=== PATIENT | female | born 1955 | race Caucasian/White ===

== ENCOUNTER 2022-03-09 09:42 | Emergency (ER) | payer OTHER ==
--- OUTSIDE RECORDS SUMMARY | 2022-03-09 09:49 | XMS REPORT | Continuity of Care Document ---
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 10:02:000.67[facility]annCHEM ALLEO3086-95-24 10:02:64076Yopiruys HermannCHEM AGLGT1901-80-02 10:02:004.1[facility]annCHEM TPADU3017-97-11 10:02:01484Lpcckmss HermannCHEM KKNQR1022-22-48 10:02:0024 [facility]annCHE[facility] MCSNH4838-20-80 10:02:0011.1[facility]annCHEM PANEL 2020-05-17 10:02:009.5[facility]annCHEM POPGZ7232-29-90 10:02:0093[facility] HqrixblXCUUCCHUTE6273-01-37 10:02:0082.9[facility] XvpaofqPDXUMWYODO0272-61-00 10:02:0011.6[facility] SpyrpjeRDZGUJJOKQ0518-41-77 10:02:005.3[facility] Ney JEONGWQOQJ1271-12-18 10:02:000.2[facility] IpglaaqVJUKXVWNKB9061-61-07 10:02:005.2 [facility] LobymajSLGZHXICOS3265-49-65 10:02:000.7[facility] HermannHEMATOLOGY 2020-05-17 10:02:000.3[facility] MkziajuXAMTZDOQCU1792-50-63 10:02:00 Test Item Value Reference Range Interpretation Comments PT (test code = PT) 14.7 s 12.0-14.7 [facility] VhrzaolKCLWCFTTIA0099-80-83 10:02:00 Test Item Value Reference Range Interpretation Comments INR (test code = INR) 1.14 1 0.85-1.17 [facility] ZoyiwtgXLQIMMZPJC6571-24-56 10:02:006.3[facility] HermannHEMATOLOGY 2020-05-17 10:02:003.95[facility] UsageopBOKQYKVOUR4419-97-30 10:02:0012.9[facility] QkokelaQPVAKTKLZN1932-72-45 10:02:0037.7[facility] HlgsfmbFEWMHYRDNG0508-68-51 10:02:0095.4[facility] TpwgdvbMHTZFOCGFD7034-13-82 10:02:00 Test Item Value Reference Range Interpretation Comments MCH (test code = MCH) 32.6 pg 27.0-31.0 [facility] KlknogsKCBHWPEBRG9709-56-05 10:02:0034.1[facility] HermannHEMATOLOGY 2020-05-17 10:02:0013.0[facility] BtwiskoZALMKWAWZH1215-83-23 10:02:72484Jszzpkww CnejxflHZNCXAESDB3276-01-14 10:02:007.8[facility] HermannSPECIAL CHEMISTRY 2020-05-17 10:02:005.6[facility] BhwctedKVWLYPNNKO9920-50-97 00:32:00Not Detected (05/16/20 7:32 PM)[facility] AND DQWRK1582-26-00 00:21:00Amber *ABN*(05/16/20 7:21 PM)[facility] IYVYT7439-10-66 00:21:00Clear (05/16/20 7:21 PM)[facility] IYMUF2332-06-07 00:21:00 Test Item Value Reference Range Interpretation Comments UA Spec Grav (test code = UA Spec 1.027 1 Grav) [facility] EXENJ4142-61-04 00:21:00 Test Item Value Reference Range Interpretation Comments UA pH (test code = UA pH) 5.0 1 5.0-8.0 [facility] TMHPT3533-87-32 00:21:00Negative *NA*(05/16/20 7:21 PM) [facility] XEHPR5574-63-62 00:21:00Negative (05/16/20 7:21 PM) [facility] MGIJM5175-65-09 00:21:00Negative (05/16/20 7:21 PM) [facility] BCGIZ8941-67-03 00:21:00Trace *ABN*(05/16/20 7:21 PM) [facility] KIPQE8677-38-81 00:21:0032[facility] TLHOS8096-14-93 00:21:004[facility] LECMB3558-75-40 00:21:003 [facility]annCHEM KKTAW9374-14-50 23:58:0043[facility] HermannBLOOD BANK UBMVCAZ3642-57-91 20:27:00Negative (05/16/20 3:27 PM)[facility]annCHEM PANEL 2020-05-16 20:27:37653Vkpumrmx HermannCHEM HDPYI8178-52-86 20:27:0013[facility]annCHEM JLIDF3723-90-44 20:27:000.90[facility]annCHEM KMNMD7342-16-24 20:27:77522Sdhbmhar HermannCHEM SUGOO2974-97-27 20:27:003.3[facility]annCHEM AWNJL9936-91-52 20:27:43595Jcuxcovl HermannCHEM XGTSE4407-61-84 20:27:0024 [facility]annCHE[facility] CKUPC4267-46-22 20:27:0012.3[facility] HermannCHEM PANEL 2020-05-16 20:27:009.7[facility]annCHEM CFWGQ8599-22-98 20:27:0068[facility] ZraplkhCSIUHGMTXHTX5666-05-22 20:27:0012.3[facility] ZdycuogLJEDWMYCSP4004-42-75 20:27:007.8[facility] BayamppHWZQGMKMFL8832-80-76 20:27:004.00[facility] GLCQHKNDDS2471-99-16 20:27:0013.1[facility] HrgqvvxGNQXJXNTTR0766-29-32 20:27:00 38.4[facility] YgriuulOVOXICPFYN4252-77-72 20:27:0096.0[facility] HermannHEMATOLOGY 2020-05-16 20:27:00 Test Item Value Reference Range Interpretation Comments MCH (test code = MCH) 32.7 pg 27.0-31.0 [facility] RhlfwtnVABJVRRWFL0775-96-88 20:27:0034.0[facility] HermannHEMATOLOGY 2020-05-16 20:27:0013.0[facility] CbruwyoOHNIFNGXRD8466-96-20 20:27:00422Eeaxrcpm OupusryNGNLRVLSWH0588-48-14 20:27:008.2[facility] YblilcoFGQWUFUGYS6163-16-03 20:27:0072.2[facility] LokprbwETZWIVNONI0145-57-22 20:27:0019.8[facility] Ney ZMUGRUYFYC1326-26-72 20:27:006.7[facility] InwcdhcTWTFNYYWSW4219-23-23 20:27:000.9 [facility] KakigtlKDCUCGDVJU3778-52-88 20:27:000.4[facility] HermannHEMATOLOGY 2020-05-16 20:27:005.6[facility] SoqzhqyKSQHKDLXNV7219-41-37 20:27:001.6[facility] JprcyzvCYWIMDDBZF6100-66-35 20:27:000.5[facility] AzbttdiKONRUNRVQT2573-98-93 20:27:000.1[facility] HermannCARDIAC PPMPQQB9326-42-00 05:41:0050[facility] CARDIAC TSWXUTD0415-73-98 05:41:65032Pkiegtyx HermannCARDIAC IUSKBGG8423-97-83 05:41:00<0.02[facility] HermannCHEM TMSHC0050-36-40 05:41:48888Vukrrxnw Valentine CHEM DJIWL8888-60-42 05:41:0012[facility]annCHEM CCNIL7433-48-61 05:41:000.88 [facility]annCHEM NRQOE3645-49-83 05:41:64459Tnjykexq HermannCHEM PANEL 2020-01-23 05:41:004.4[facility]annCHEM RALGX2015-26-19 05:41:67102Teqkzdta HermannCHEM FZPFF7366-69-50 05:41:0025[facility]annCHEM ZUUWN3637-55-33 05:41:008.7[facility]annCHEM JOLZQ6737-27-72 05:41:007.0[facility]annCHEM HTZGO3013-25-85 05:41:003.6[facility]annCHEM MBFRV4398-62-14 05:41:0019 [facility]annCHEM PQRPM1582-77-39 05:41:0029[facility]annCHEM PANEL 2020-01-23 05:41:0069[facility]annCHEM AKBGK0238-85-68 05:41:000.7[facility]annCHEM BYDTD9824-82-05 05:41:0011.4[facility] HermannCHEM OZHIL8442-55-38 05:41:00 Test Item Value Reference Range Interpretation Comments B/C Ratio (test code = B/C Ratio) 14 1 6-25 [facility]annCHEM HFJDT4476-47-71 05:41:003.4[facility] HermannCHEM PANEL 2020-01-23 05:41:00 Test Item Value Reference Range Interpretation Comments A/G Ratio (test code = A/G Ratio) 1.1 1 0.7-1.6 [facility]annCHEM NUARH0725-44-88 05:41:0069[facility] HermannHEMATOLOGY 2020-01-23 05:41:009.3[facility] IcegideLBXBILXMFT8232-76-18 05:41:003.87[facility] GuqcgseXELACVUWAO7307-45-95 05:41:0012.7[facility] DbdehupCUEWWJYCMC5223-06-34 05:41:0036.6[facility] SavzdvcZRXWWXOWKX7093-28-40 05:41:0094.6[facility] Ney NNYXEFXARN1768-02-98 05:41:00 Test Item Value Reference Range Interpretation Comments MCH (test code = MCH) 32.9 pg 27.0-31.0 [facility] BpywkefYKDAHDSQJK0722-00-99 05:41:0034.8[facility] HermannHEMATOLOGY 2020-01-23 05:41:0012.9[facility] NcezlmuWEXDOKNNWB3240-65-50 05:41:01770Kscellir YvcsxxiPWQFQXEXZW9534-52-38 05:41:008.3[facility] TzxjdxvHRGMTOYPBY0479-83-28 05:41:00 Test Item Value Reference Range Interpretation Comments PT (test code = PT) 14.0 s 12.0-14.7 [facility] CzwaoobWQKZWRRPIC6729-00-01 05:41:00 Test Item Value Reference Range Interpretation Comments INR (test code = INR) 1.08 1 0.85-1.17 [facility] ImgkvurXCAJDTCSWU9137-71-32 05:41:0075.3[facility] HermannHEMATOLOGY 2020-01-23 05:41:0016.6[facility] SjklszxGEKZMPJXKW1301-19-96 05:41:006.7[facility] YhpnoamJFKEIOLKDN3817-53-08 05:41:001.1[facility] RhheyyuSUTLBHULGF4562-17-66 05:41:000.3[facility] WknsrftAEHQEXWUOL4708-63-63 05:41:007.0[facility] Ney IOYDZPFGVZ5580-75-36 05:41:001.5[facility] HqydtqgYNVCYZIISC2472-25-22 05:41:000.6 [facility] KcxtoifSMRPIRTIBD4587-36-37 05:41:000.1[facility]
[2022-03-09] MEDS ORDERED: FAMOTIDINE 20 MG TAB ONE (12:42)
[2022-03-09] MEDS ORDERED: ACETAMINOPHEN 325 MG TABLET ONE (12:42)
[2022-03-09] MEDS ORDERED: NA CHLORIDE 0.9% 1,000 ML ONE (12:42)
[2022-03-09] MEDS ORDERED: KETOROLAC 30 MG/ML INJ ONE (12:42)
[2022-03-09 12:51] LABS: Absolute Lymphocytes (CBC) 0.5 K/uL (0.7-4.9); Lymphocytes % 17.5 % (15.3-44.8); MCV 95.8 fL (80-100); RBC Red Blood Cell Count 3.97 M/uL (3.86-4.86)
[2022-03-09 13:04] LABS: Bilirubin Total 0.3 mg/dL (0.2-1.0); Potassium 3.9 mmol/L (3.5-5.1); Protein, Total 7.2 g/dL (6.4-8.2)
--- NOTE | 2022-03-09 13:47 | EDPHYS ---
Physician Documentation [facility] Name: Barbra Moore Age: 66 yrs Sex: Female : 1955 Arrival Date: 03/09/2022 Time: 09:46 Bed 9 Private MD: ED Physician Nathaniel Pink HPI: 03/09 13:36 This 66 yrs old Female presents to ER via Ambulatory with complaints of corazon Headache. 13:36 The patient complains of pain to the forehead, left frontal area, left side of the back corazon of head, left occipital area, left base of the skull, right frontal area, right side of the back of head, right occipital area and right base of the skull. The patient describes the headache as aching. Onset: The symptoms/episode began/occurred 2 day(s) ago. Associated signs and symptoms: Pertinent positives: fever, malaise, sinus congestion. Severity of symptoms: At its worst the pain was mild, moderate, in the emergency department the pain is unchanged. Headache History: The patient has had previous headaches and this one is similar to previous episodes. The symptoms are alleviated by nothing. the symptoms are aggravated by nothing. The patient has not experienced similar symptoms in the past. Historical: - Allergies: 10:42 NKA; jl7 - PMHx: 10:42 Arthritis; jl7 - Immunization history:: Client reports having NOT received the Covid vaccine. - Social history:: Smoking status: Patient denies any tobacco usage or history of. - Family history:: not pertinent. ROS: 13:36 Constitutional: Negative for fever, chills, and weight loss, Eyes: Negative for injury, corazon pain, redness, and discharge, Neck: Negative for injury, pain, and swelling, Cardiovascular: Negative for chest pain, palpitations, and edema, Respiratory: Negative for shortness of breath, cough, wheezing, and pleuritic chest pain, Abdomen/GI: Negative for abdominal pain, nausea, vomiting, diarrhea, and constipation, Back: Negative for injury and pain, : Negative for injury, bleeding, discharge, and swelling, MS/Extremity: Negative for injury and deformity, Skin: Negative for injury, rash, and discoloration, Neuro: Negative for headache, weakness, numbness, tingling, and seizure. 13:36 ENT: Positive for rhinorrhea, sinus congestion, sore throat. Exam: 13:36 Constitutional: This is a well developed, well nourished patient who is awake, alert, corazon and in no acute distress. Head/Face: Normocephalic, atraumatic. Eyes: Pupils equal round and reactive to light, extra-ocular motions intact. Lids and lashes normal. Conjunctiva and sclera are non-icteric and not injected. Cornea within normal limits. Periorbital areas with no swelling, redness, or edema. ENT: Nares patent. No nasal discharge, no septal abnormalities noted. Tympanic membranes are normal and external auditory canals are clear. Oropharynx with no redness, swelling, or masses, exudates, or evidence of obstruction, uvula midline. Mucous membranes moist. Neck: Trachea midline, no thyromegaly or masses palpated, and no cervical lymphadenopathy. Supple, full range of motion without nuchal rigidity, or vertebral point tenderness. No Meningismus. Chest/axilla: Normal chest wall appearance and motion. Nontender with no deformity. No lesions are appreciated. Cardiovascular: Regular rate and rhythm with a normal S1 and S2. No gallops, murmurs, or rubs. Normal PMI, no JVD. No pulse deficits. Respiratory: Lungs have equal breath sounds bilaterally, clear to auscultation and percussion. No rales, rhonchi or wheezes noted. No increased work of breathing, no retractions or nasal flaring. Abdomen/GI: Soft, non-tender, with normal bowel sounds. No distension or tympany. No guarding or rebound. No evidence of tenderness throughout. Back: No spinal tenderness. No costovertebral tenderness. Full range of motion. Skin: Warm, dry with normal turgor. Normal color with no rashes, no lesions, and no evidence of cellulitis. MS/ Extremity: Pulses equal, no cyanosis. Neurovascular intact. Full, normal range of motion. Neuro: Awake and alert, GCS 15, oriented to person, place, time, and situation. Cranial nerves II-XII grossly intact. Motor strength 5/5 in all extremities. Sensory grossly intact. Cerebellar exam normal. Normal gait. Psych: Awake, alert, with orientation to person, place and time. Behavior, mood, and affect are within normal limits. 13:36 Abdomen/GI: Inspection: abdomen appears normal, Bowel sounds: normal, Palpation: nontender, in all quadrants, Liver: no appreciated palpable abnormalities, Hernia: not appreciated. Vital Signs: 10:38 BP 101 / 70; Pulse 67; Resp 17; Temp 98.2; Pulse Ox 100% on R/A; Weight 61.23 kg; jl7 Height 5 ft. 3 in. (160.02 cm); Pain 8/10; 10:38 Body Mass Index 23.91 (61.23 kg, 160.02 cm) jl7 Davida Coma Score: 13:44 Eye Response: spontaneous(4). Verbal Response: oriented(5). Motor Response: obeys corazon commands(6). Total: 15. MDM: 12:01 Patient medically screened. corazon 13:44 Differential diagnosis: hyponatremia, migraine, sinusitis, tension headache. Data corazon reviewed: vital signs, nurses notes, lab test result(s). Data interpreted: shelter monitor: not applicable for this patient encounter. rate is 67 beats/min, rhythm is regular. Test interpretation: by ED physician or midlevel provider: plain radiologic studies. Counseling: I had a detailed discussion with the patient and/or guardian regarding: the historical points, exam findings, and any diagnostic results supporting the discharge/admit diagnosis, lab results, the need for outpatient follow up, a family practitioner. 03/09 10:41 Order name: Flu; Complete Time: 13:32 kj1 03/09 10:41 Order name: SARS-COV-2 RT PCR (Document "Date of Onset" if Symptomatic); Complete Time: kj 13:32 03/09 12:26 Order name: CBC with Diff; Complete Time: 13:32 corazon 03/09 12:26 Order name: Comprehensive Metabolic Panel; Complete Time: 13:32 corazon Administered Medications: 12:47 Drug: NS 0.9% 1000 ml Route: IV; Rate: 1 bolus; Site: right antecubital; ld1 12:47 Drug: Tylenol 650 mg Route: PO; ld1 12:47 Drug: Ketorolac 15 mg Route: IVP; Site: right antecubital; ld1 12:47 Drug: Pepcid (famotidine) 40 mg Route: PO; ld1 Disposition Summary: 03/09/22 13:46 Discharge Ordered Location: Home corazon Problem: new corazon Symptoms: have improved corazon Condition: Stable corazon Diagnosis - Headache corazon - Coronavirus infection, unspecified corazon - SARS-associated coronavirus as the cause of diseases classified elsewhere [facility] Followup: [facility] - With: Private Physician - When: 2 - 3 days - Reason: Recheck today's complaints, Continuance of care, Re-evaluation by your physician Discharge Instructions: - Discharge Summary Sheet [facility] - Upper Respiratory Infection, Adult [facility] - Viral Respiratory Infection, Xqgj-Aj-Quzp [facility] - Aspirin and Your Heart [facility] - COVID-19 [facility] - Things to Know about the COVID-19 Pandemic - [facility] - 10 Things You Can Do to Manage Your COVID-19 Symptoms at Home - [facility] - COVID-19: Quarantine vs. Isolation - [facility] - Prevent the Spread of COVID-19 if You Are Sick - [facility] Forms: - Medication Reconciliation Form [facility] - Thank You Letter [facility] - Antibiotic Education [facility] - Prescription Opioid Use [facility] Prescriptions: - budesonide 180 mcg/actuation Inhalation aerosol powdr breath activated - inhale 1 puff by INHALATION route 2 times per day; 1 Pump; Refills: 0, Product [facility] Selection Permitted - Pepcid 20 mg Oral Tablet - take 1 tablet by ORAL route every 12 hours for 21 days; 42 tablet; Refills: 0, [facility] Product Selection Permitted - Zofran 4 mg Oral Tablet - take 1 tablet by ORAL route every 12 hours As needed; 20 tablet; Refills: 0, [facility] Product Selection Permitted - Zithromax 500 mg Oral Tablet - take 1 tablet by ORAL route once daily for 5 days; 5 tablet; Refills: 0, [facility] Product Selection Permitted Signatures: Dispatcher [employer] Nathaniel Serrano MD MD cha Leal, Jahala RN RN jl7 Nohemy Thompson RN RN ld1
--- NOTE | 2022-03-09 13:47 | ER ---
Nurse's Notes [facility] Name: Barbra Moore Age: 66 yrs Sex: Female : 1955 Arrival Date: 03/09/2022 Time: 09:46 Bed 9 Private MD: Diagnosis: Headache;Coronavirus infection, unspecified;SARS-associated coronavirus as the cause of diseases classified elsewhere Presentation: 03/09 10:38 Chief complaint: Patient states: Pounding headache, chills and RUQ abdominal pain x 1 jl7 day, reports nausea, denies V/D, denies constipation, denies urinary symptoms. Coronavirus screen: chills, headache, nausea, Client presents with at least one sign or symptom that may indicate coronavirus-19. Standard/surgical mask placed on the client. Ebola Screen: No symptoms or risks identified at this time. Initial Sepsis Screen: Does the patient meet any 2 criteria? No. Patient's initial sepsis screen is negative. Does the patient have a suspected source of infection? No. Patient's initial sepsis screen is negative. Risk Assessment: Do you want to hurt yourself or someone else? Patient reports no desire to harm self or others. Onset of symptoms was March 08, 2022. 10:38 Method Of Arrival: Ambulatory jl7 10:38 Acuity: FELECIA 3 jl7 Triage Assessment: 10:42 Headache History: The patient has had previous headaches and this one is more severe jl7 than previous episodes. General: Appears in no apparent distress. uncomfortable, Behavior is calm, cooperative, appropriate for age. Pain: Complains of pain in ANAND and RUQ Pain currently is 8 out of 10 on a pain scale. Pain began 1 day ago. Also complains of nausea. Neuro: Level of Consciousness is awake, alert, obeys commands, Oriented to person, place, time, situation. Cardiovascular: Patient's skin is warm and dry. Respiratory: Airway is patent Respiratory effort is even, unlabored, Respiratory pattern is regular, symmetrical. GI: Reports upper abdominal pain, nausea. : Denies burning with urination. Derm: Skin is pink, warm \T\ dry. Historical: - Allergies: 10:42 NKA; jl7 - PMHx: 10:42 Arthritis; jl7 - Immunization history:: Client reports having NOT received the Covid vaccine. - Social history:: Smoking status: Patient denies any tobacco usage or history of. - Family history:: not pertinent. Screenin:11 Abuse screen: Denies threats or abuse. Denies injuries from another. Nutritional ld1 screening: No deficits noted. Tuberculosis screening: No symptoms or risk factors identified. Fall Risk None identified. Assessment: 12:11 Reassessment: Patient appears in no apparent distress at this time. See triage ld1 assessment. Vital Signs: 10:38 BP 101 / 70; Pulse 67; Resp 17; Temp 98.2; Pulse Ox 100% on R/A; Weight 61.23 kg; jl7 Height 5 ft. 3 in. (160.02 cm); Pain 8/10; 10:38 Body Mass Index 23.91 (61.23 kg, 160.02 cm) jl7 Davida Coma Score: 13:44 Eye Response: spontaneous(4). Verbal Response: oriented(5). Motor Response: obeys corazon commands(6). Total: 15. ED Course: 09:46 Patient arrived in ED. mr 10:42 Triage completed. jl7 10:42 Arm band placed on right wrist. Patient placed in waiting room, Patient notified of jl7 wait time. 12:01 Nathaniel Pink MD is Attending Physician. [facility] 12:10 Nohemy Thompson, KANG is Primary Nurse. ld1 12:11 Patient has correct armband on for positive identification. Placed in gown. Bed in low ld1 position. Call light in reach. Side rails up X2. Pulse ox on. NIBP on. Door closed. Noise minimized. Warm blanket given. 12:11 No provider procedures requiring assistance completed. ld1 12:40 Inserted saline lock: 22 gauge in right antecubital area, using aseptic technique. zm Blood collected. 12:41 Comprehensive Metabolic Panel Sent. zm 12:41 CBC with Diff Sent. zm 14:08 IV discontinued, intact, bleeding controlled, No redness/swelling at site. ld1 Administered Medications: 12:47 Drug: NS 0.9% 1000 ml Route: IV; Rate: 1 bolus; Site: right antecubital; ld1 12:47 Drug: Tylenol 650 mg Route: PO; ld1 12:47 Drug: Ketorolac 15 mg Route: IVP; Site: right antecubital; ld1 12:47 Drug: Pepcid (famotidine) 40 mg Route: PO; ld1 Medication: 12:11 VIS not applicable for this client. ld1 Outcome: 13:46 Discharge ordered by . corazon 14:07 Discharged to home ambulatory. ld1 14:07 Condition: stable 14:07 Discharge instructions given to patient, Instructed on discharge instructions, follow up and referral plans. medication usage, Demonstrated understanding of instructions, follow-up care, medications, Prescriptions given X 4. 14:08 Patient left the ED. ld1 Signatures: Nathaniel Pink MD MD cha Rivera, Mary mr Leal, Jahala, RN RN jl7 Nohemy Thompson RN RN ld1 Corrie Dixon
[2022-03-09 14:27] VITALS: BP 101/70; TEMP 98.2; O2SAT 100
== END 2022-03-09 14:08 | disposition home or self-care (01) ==
LOC: ER 09:42
DX: U07.1 COVID-19 (principal)
CPT/HCPCS: 85025; 36415; 80053; 87804 ×2; 96374; 99284; U0003; J7030

== ENCOUNTER 2022-09-21 15:31 | Emergency (ER) | payer OTHER ==
--- OUTSIDE RECORDS SUMMARY | 2022-09-21 15:41 | XMS REPORT | Continuity of Care Document ---
:1955 Author Organization [facility] t Address [address] [place] [address] Care Team Providers Name Role Phone Juan R Vicente Attending Clinician Unavailable EMMA HACKETT Attending Clinician Unavailable Emma Hackett Attending Clinician Surekha Jarvis Attending Clinician KAREEM JARVIS Attending Clinician Unavailable Physician, No Primary or Family Admitting Clinician UnavailEMMA Velasco Admitting Clinician Unavailable Emma Hackett Admitting Clinician Payers Payer Name Policy Type Policy Number Effective Date Expiration Date S ource Problems Condition Condition Condition Status Onset Resolution Last Treating Co mments Source Name Details Category Date Date Treatment Clinician Date OTHER OTHER Diagnosis Active 2019-082020-05-16 Mem oria Active 0 15:53:00 l 05/16/2020 00:00: Manoj hilario [facility] 00 Ney FACIAL FACIAL Diagnosis Active 2019-082020-07-02 Me moria LACERATION LACERATION 0- 13:54:00 l , SHOULDER , SHOULDER 00:00: He rmann DISLOCATIO DISLOCATIO 00 N, N, Active 05/16/[address] [facility] SYNCOPE SYNCOPE Diagnosis Active 2020-01-23 Memoria Active 01-22 06:34:00 l 01/23/2020 00:07: Manoj hilario [facility] 00 Ney LACERATION LACERATIO Diagnosis Active 2020-07-02 Memoria W/O N W/O 13:54:00 l FOREIGN FOREIGN [place] BODY OF BODY OF OTH PART [facility] UN[facility] Diagnosis Active 2020-07-02 Mem oria DISLOCATIO DISLOCATIO 13:54:00 l N OF N OF [place] UNSPECIFIE UNSPECIFIE D SHOULDER D SHOULDER Active [facility] FRACTURE FRACTURE Diagnosis Active 2020-07-02 Memoria OF UNSP OF UNSP 13:54:00 l PART OF PART OF Seeley NECK OF NECK OF UNSP FE UNSP FE Active [facility] History of Past Illness Condition Condition Condition Status Onset Resolution Last Treating Co mments Source Name Details Category Date Date Treatment Clinician Date Syncope Syncope Problem 2019-2020-01-25 2020-01-25 Memoria and and 01-22 21:08:12 21:08:12 l collapse collapse 17:00: Manoj hilario 01/23/2020 00 01/25/2020 [facility] Cannabis Cannabis Problem 2019-2020-01-25 2020-01-25 Memoria use, use, 01-22 21:08:12 21:08:12 l unspecifie unspecifie 17:00: He lili d, d, 00 uncomplica uncomplica miryam miryam 01/23/2020 01/25/2020 [facility] Pain in Pain in Problem 2019-2020-01-25 2020-01-25 Memoria unspecifie unspecifie 01-22 21:08:12 21:08:12 l d knee d knee 17:00: Ney 01/23/202001/25/2020 [facility] Unspecifie Unspecifi Problem 2019-2020-01-25 2020-01-25 Memoria d ed 01-22 21:08:12 21:08:12 l osteoarthr osteoarthr 17:00: He lili itis, itis, 00 unspecifie unspecifie d site d site 01/23/2020 01/25/2020 [facility] Allergies, Adverse Reactions, Alerts Allergy Allergy Status Severity Reaction(s) Onset Inactive Treating Comm ents Source Name Type Date Date Clinician No Known DA [facility] [place] [facility] No Known DA [facility] [place] [facility] Social History Social Habit Start Date Stop Date Quantity Comments Source Social History 2020-05-17 2020-05-17 [facility] 02:24:18 02:24:18 Medications Ordered Filled Start Stop Current Ordering Indication Dosage Frequency Signature Comments Components Source Medication Medication Date Date Medication? Clinician (SIG) Name Name Aspirin 325 2019-08 Yes 325 mg = 1 Memoria MG Enteric 0-05 tab, PO, l Coated 15:36: BID, # 84 Manoj n Tablet 00 tab, 0 Refill(s) Aspirin 325 2019-08 Yes 325 mg = [...] Duration: 30 day, Stop date: 06/17/20 9:00:00 PSYCH SPECIALIST Aspirin 325 2019-08 No 325 mg, 1 M emoria MG Enteric 0-04 tab, l Coated 22:00: Route: PO, Roberta nn Tablet 00 BID, Dosing Weight 64.636, kg, Start date: 05/18/20 17:00:00 CDT, Duration: 30 day, Stop date: 06/17/20 9:00:00 PSYCH SPECIALIST celecoxib 2019-08 Yes 200 mg = 1 Me moria 200 mg oral 0-04 cap, PO, l capsule 15:33: Daily, # Manoj n 00 30 cap, 0 Refill(s) celecoxib 2019-08 Yes 200 mg = 1 [...] tab, PO, l tablet 15:31: Q8H, PRN Seeley 00 Spasm, # 20 tab, 0 Refill(s) Vitamin D3 2019-08 Yes 50,000 Memor ia 50,000 intl 0-04 IntlUnit = l units oral 15:31: 1 cap, PO, H ermann capsule 00 qWeek, # 12 cap, 0 Refill(s) celecoxib 2019-08 No 200 [...] tab, PO, l tablet 15:31: Q8H, PRN See[place] 00 Spasm, # 20 tab, 0 Refill(s) [...] e 0-04 Tablet l 14:00: should not Seeley 00 be chewed or crushed. (Same as: Protonix) Docusate 2019-08 No Notes: Memoria Sodium 50 0-04 (Same as l MG / 14:00: Senokot-S) Ney sennosides, 00 Equiv. to SENIOR CARE 8.6 MG Tali-Colac Oral Tablet e. POLYETHYLEN 2019-08 No Notes: Pan shantal E GLYCOL 0-04 Dissolve l 3350 14:00: in 8 oz of Seeley 00 water or juice. (Same as: Miralax) Celebrex 2019-08 No Notes: Memoria 0-04 NSAID. l 14:00: Please Seeley 00 check indication . Not for seizure. (Same As: CeleBREX) Vitamin D3 2019-08 No Notes: Memor ia 1000 intl 0-04 Same as : l units oral 14:00: Vitamin D3 H ermann tablet 00 pantoprazol 2019-08 No Notes: Pan shantal e 0-04 Tablet l 14:00: should not Ney 00 be chewed or crushed. (Same as: Protonix) Docusate 2019-08 No Notes: Memoria Sodium 50 0-04 (Same as l MG / 14:00: Senokot-S) Ney sennosides, 00 Equiv. to SENIOR CARE 8.6 MG Tali-Colac Oral Tablet e. POLYETHYLEN 2019-08 No Notes: Pan shantal E GLYCOL 0-04 Dissolve l 3350 14:00: in 8 oz of Seeley 00 water or juice. (Same as: Miralax) Celebrex 2019-08 No Notes: Memoria 0-04 NSAID. l 14:00: Please Seeley 00 check indication . Not for seizure. (Same As: CeleBREX) Enoxaparin 2019-08 No Notes: Memor ia 0-04 (Same as: l 13:00: Lovenox) Seeley Aspirin 81 2019-08 No Notes: Do Me moria MG Enteric 0-04 not crush l Coated 13:00: or chew. Ney Tablet 00 (Same As: Ecotrin) Enoxaparin 2019-08 No Notes: Memor ia 0-04 (Same as: l 13:00: Lovenox) Seeley 00 Aspirin 81 2019-08 No Notes: Do Me moria MG Enteric 0-04 not crush l Coated 13:00: or chew. Ney Tablet 00 (Same As: Ecotrin) Ketotifen 2019-08 No Notes: Memori a 0.25 MG/ML 0-04 (Same l Ophthalmic 05:00: as:Zaditor H ermann Solution 00 ) Cefazolin 2019-08 No Notes: Memori a 0-04 (Same As: l 05:00: Ancef, Seeley 00 Kefzol) MEDICATION WASTE Product Size: 1000 mg Product Wasted: ___ mg Lyrica 2019-08 No Notes: Memoria 0-04 Same as l 05:00: Lyrica See[place] 00 Ketotifen 2019-08 No Notes: Memori a 0.25 MG/ML 0-04 (Same l Ophthalmic 05:00: as:Zaditor H ermann Solution 00 ) Cefazolin 2019-08 No Notes: Memori a 0-04 (Same As: l 05:00: Ancef, See[place] 00 Kefzol) MEDICATION WASTE Product Size: 1000 mg Product Wasted: ___ mg Lyrica 2019-08 No Notes: Memoria 0-04 Same as l 05:00: Lyrica [place] 00 Calcium 2019-08 No 500 mL, Memoria Chloride 0-04 500 ml/hr, l 0.0014 03:30: Infuse Seeley MEQ/ML / 00 Over: 1 Potassium hr, Route: Chloride IV, 500, 0.004 Drug form: MEQ/ML / INJ, ONCE, Sodium Priority: Chloride STAT, 0.103 Dosing MEQ/ML / Weight Sodium 64.636 kg, Lactate Start 0.028 date: MEQ/ML 05/17/20 Injectable 22:30:00 Solution CDT, Stop date: 05/17/20 22:30:00 CDT, 0 Calcium 2019-08 No 500 mL, Memoria Chloride [...] times Acetaminoph 2019-08 No 1,000 mg, M emoria en 0-04 Route: l 00:15: IVPB, Drug [...] Duration: 30 day, Stop date: 06/16/20 19:14:00 PSYCH SPECIALIST Fentanyl 2019-08 No 25 Memoria 0-04 microgram, l 00:15: Route: Seeley 00 IVP, Q5Min, Dosing Weight 64.636, kg, PRN Pain Score 4-6, Priority: Routine, Start date: 05/17/20 19:15:00 CDT, Duration: 4 doses or times, Stop date: Limited # of times Hydromorpho 2019-08 No 0.5 mg, Mem oria ne 0-04 Route: l 00:15: IVP, Ney 00 Q5Min, Dosing Weight 64.636, kg, PRN Pain Score 7-10, Start date: 05/17/20 19:15:00 CDT, Duration: 4 doses or times, Stop date: Limited # of times Flumazenil 2019-08 No 0.2 mg, Pan shantal 0-04 Route: l 00:15: IVP, PRN, See[place] 00 Dosing Weight 64.636, kg, PRN Benzodiaze pine Reversal, Initial dose, Start date: 05/17/20 19:15:00 CDT, Duration: 30 day, Stop date: 06/16/20 18:14:00 PSYCH SPECIALIST Naloxone 2019-08 No 0.4 mg, Memori a 0-04 Route: l 00:15: IVP, Ney 00 Q2MIN, Dosing Weight 64.636, kg, PRN Narcotic Reversal, Start date: 05/17/20 19:15:00 CDT, Duration: 8 doses or times, Stop date: Limited # of times Albuterol 2019-08 No 2.49 mg, Pan shantal 0.83 MG/ML 0-04 Route: l Inhalant 00:15: NEB, Seeley Solution 00 Q20Min, Dosing Weight 64.636, kg, PRN Wheezing, Priority: STAT, Start date: 05/17/20 19:15:00 CDT, Duration: 30 day, Stop date: 06/16/20 18:14:00 PSYCH SPECIALIST Diphenhydra 2019-08 No 12.5 mg, Me moria mine 0-04 Route: l 00:15: IVP, Drug Ney 00 form: INJ, Q6H, Dosing Weight 64.636, kg, PRN Itching, Start date: 05/17/20 19:15:00 CDT, Duration: 30 day, Stop date: 06/16/20 19:14:00 PSYCH SPECIALIST Meperidine 2019-08 No 12.5 mg, Mem oria 0-04 Route: l 00:15: IVP, Ney 00 Q30Min, Dosing Weight 64.636, kg, PRN Other -See Comment, For shivering, Start date: 05/17/20 19:15:00 CDT, Duration: 2 doses or times, Stop date: Limited # of times Ondansetron 2019-08 No 4 mg, Memor ia 0-04 Route: l 00:15: IVP, ONCE, See[place] 00 Dosing Weight 64.636, kg, PRN Nausea [...] 19:15:00 CDT, Stop date: 05/17/20 19:15:00 CDT Hydralazine 2019-08 No 10 mg, Pan shantal 0-04 Route: l 00:15: IVP, Ney 00 Q20Min, Dosing Weight 64.636, kg, PRN Elevated BP, Start date: 05/17/20 19:15:00 CDT, Duration: 2 doses or times, Stop date: Limited # of times Acetaminoph 2019- No 1,000 mg, M [place] en 0-04 Route: l 00:15: IVPB, Drug Seeley 00 form: INJ, ONCE, Dosing Weight 64.636, kg, PRN Pain Score 1-3, Start date: 05/17/20 19:15:00 CDT Oxycodone 2019-08 No 5 mg, Memoria Hydrochlori 0-04 Route: PO, l de 5 MG 00:15: Drug form: Herm zehra Oral Tablet 00 TAB, Q4H, Dosing Weight 64.636, kg, PRN Pain Score 4-6, Start date: 05/17/20 19:15:00 CDT, Duration: 30 day, Stop date: 06/16/20 19:14:00 PSYCH SPECIALIST Fentanyl 2019-08 No 25 Memoria 0-04 microgram, l 00:15: Route: Ney 00 IVP, Q5Min, Dosing Weight 64.636, kg, PRN Pain Score 4-6, Priority: Routine, Start date: 05/17/20 19:15:00 CDT, Duration: 4 doses or times, Stop date: Limited # of times Hydromorpho 2019-08 No 0.5 mg, Mem oria ne 0-04 Route: l 00:15: IVP, [place] 00 Q5Min, Dosing Weight 64.636, kg, PRN Pain Score 7-10, Start date: 05/17/20 19:15:00 CDT, Duration: 4 doses or times, Stop date: Limited # of times Flumazenil 2019-08 No 0.2 mg, Pan shantal 0-04 Route: l 00:15: IVP, PRN, See[place] 00 Dosing Weight 64.636, kg, PRN Benzodiaze pine Reversal, Initial dose, Start date: 05/17/20 19:15:00 CDT, Duration: 30 day, Stop date: 06/16/20 18:14:00 PSYCH SPECIALIST Naloxone 2019-08 No 0.4 mg, Memori a 0-04 Route: l 00:15: IVP, Ney 00 Q2MIN, Dosing Weight 64.636, kg, PRN Narcotic Reversal, Start date: 05/17/20 19:15:00 CDT, Duration: 8 doses or times, Stop date: Limited # of times Albuterol 2019-08 No 2.49 mg, Pan shantal 0.83 MG/ML 0-04 Route: l Inhalant 00:15: NEB, Ney Solution 00 Q20Min, Dosing Weight 64.636, kg, PRN Wheezing, Priority: STAT, Start date: 05/17/20 19:15:00 CDT, Duration: 30 day, Stop date: 06/16/20 18:14:00 PSYCH SPECIALIST Diphenhydra 2019-08 No 12.5 mg, Me moria mine 0-04 Route: l 00:15: IVP, Drug Seeley 00 form: INJ, Q6H, Dosing Weight 64.636, kg, PRN Itching, Start date: 05/17/20 19:15:00 CDT, Duration: 30 day, Stop date: 06/16/20 19:14:00 PSYCH SPECIALIST Meperidine 2019-08 No 12.5 mg, Mem oria 0-04 Route: l 00:15: IVP, Ney 00 Q30Min, Dosing Weight 64.636, kg, PRN Other -See Comment, For shivering, Start date: 05/17/20 19:15:00 CDT, Duration: 2 doses or times, Stop date: Limited # of times Ondansetron 2019-08 No 4 mg, Memor ia 0-04 Route: l 00:15: IVP, ONCE, See[place] 00 Dosing Weight 64.636, kg, PRN Nausea [...] date: 05/17/20 19:15:00 CDT Vancomycin 2019-08 No 2000 mg: Me moria 0-04 infuse l 00:00: over 2.5 Seeley 00 hours For adult patients only: Round to nearest 250 mg per Medical Staff approval MEDICATION WASTE Product Size: 1000 mg Product Wasted: ___ mg Vancomycin 2019-08 No 2000 mg: Me moria 0-04 infuse l 00:00: over 2.5 Seeley 00 hours For adult patients only: Round to nearest 250 mg per Medical Staff approval MEDICATION WASTE Product Size: 1000 mg Product Wasted: ___ mg glycopyrrol 2019-08 No Route: IV, Memoria ate (ANES) 0-03 Drug form: l 23:29: INJ, ONCE, Stop date: 05/17/20 18:29:00 CDT neostigmine 2019-08 No Route: IV, Memoria (ANES) 0-03 Drug form: l 23:29: INJ, ONCE, Stop date: 05/17/20 18:29:00 CDT glycopyrrol 2019-08 No Route: IV, Memoria ate [...] Duration: 30 day, Stop date: 06/16/20 18:22:00 PSYCH SPECIALIST, 1.71, m2, 0 Milk of 2019-08 No [...] Duration: 30 day, Stop date: 06/16/20 18:22:00 PSYCH SPECIALIST, 0 Ondansetron 2019-08 No Notes: Pan shantal 0-03 (Same as: l 23:23: Zofran) MEDICATION WASTE Product Size: 4 mg Product Wasted: ___ mg Melatonin 2019-08 No Notes: Memori a 0-03 (Same as: l 23:23: Melatonin) tizanidine 2019-08 No Notes: Memor ia 0-03 (Same As: l 23:23: Zanaflex) tramadol 2019-08 No Notes: Not Mem oria hydrochlori 0-03 to exceed l de 50 MG 23:23: 400mg/day. Her cantu Oral Tablet 00 (Same As: Ultram) Acetaminoph 2019-08 No Notes: Pan shantal en 325 MG / 0-03 Same as l Hydrocodone 23:23: [place] Roberta nn Bitartrate 00 325-7.5mg 7.5 MG Oral Do not Tablet exceed [[place] 4gm/day of 7.5/325] acetaminop hen. Lactated 2019-08 No 1,000 mL, Pan shantal Ringers IV 0-03 Rate: 75 l 1,000 mL 23:23: ml/hr, Infuse over: 13.3 hr, Route: IV, Dosing Weight 64.636 kg, Total Volume: 1,000, Start date: 05/17/20 18:23:00 CDT, Duration: 30 day, Stop date: 06/16/20 18:22:00 PSYCH SPECIALIST, 1.71, m2, 0 Milk of 2019-08 No Notes: Memoria Magnesia 0-03 (Same as: l 23:23: Milk of [place] Joana, MOM) Morphine 2019-08 No 2 mg, 1 Memori a 0-03 mL, Route: l 23:23: IVP, Drug form: SOLN, Q3H, Dosing Weight 64.636, kg, PRN Pain Score 7-10, If not responding to oral therapy or unable to tolerate PO., Start date: 05/17/20 18:23:00 CDT, Duration: 30 day, Stop date: 06/16/20 18:22:00 PSYCH SPECIALIST, 0 Ondansetron 2019-08 No Notes: Pan shantal 0-03 (Same as: l 23:23: Zofran) MEDICATION WASTE Product Size: 4 mg Product Wasted: ___ mg Melatonin 2019-08 No Notes: Memori a 0-03 (Same as: l 23:23: Melatonin) tizanidine 2019-08 No Notes: Memor ia 0-03 (Same As: l 23:23: Zanaflex) tramadol 2019-08 No Notes: Not Mem oria hydrochlori 0-03 to exceed l de 50 MG 23:23: 400mg/day. Her cantu Oral Tablet 00 (Same As: Ultram) Acetaminoph 2019-08 No Notes: Pan shantal en 325 MG / 0-03 Same as l Hydrocodone 23:23: [place] Roberta nn Bitartrate 00 325-7.5mg 7.5 MG Oral Do not Tablet exceed [[place] 4gm/day of 7.5/325] acetaminop hen. dexamethaso 2019-08 No Route: IV, Memoria ne (ANES) 0-03 Drug form: l 23:04: INJ, ONCE, Stop date: 05/17/20 18:04:00 CDT ondansetron 2019-08 No Route: IV, Memoria (ANES) 0-03 Drug form: l 23:04: INJ, ONCE, Stop date: 05/17/20 18:04:00 CDT dexamethaso 2019-08 No Route: IV, Memoria ne (ANES) 0-03 Drug form: l 23:04: INJ, ONCE, Stop date: 05/17/20 18:04:00 CDT ondansetron 2019-08 No Route: IV, Memoria (ANES) 0-03 Drug form: l 23:04: INJ, ONCE, Stop date: 05/17/20 18:04:00 CDT succinylcho 2019-08 No Route: IV, Memoria line (ANES) 0-03 Drug form: l 21:13: INJ, ONCE, Stop date: 05/17/20 16:13:00 CDT succinylcho 2019-08 No Route: IV, Memoria line (ANES) 0-03 Drug form: l 21:13: INJ, ONCE, Stop date: 05/17/20 16:13:00 CDT midazolam 2019-08 No Route: IV, Me moria (ANES) 0-03 Drug form: l 21:08: SOLN, ONCE, Stop date: 05/17/20 16:08:00 CDT lidocaine [...] INJ, ONCE, Stop date: 05/17/20 16:08:00 CDT midazolam 2019-08 No Route: IV, Me moria (ANES) 0-03 Drug form: l 21:08: SOLN, ONCE, Stop date: 05/17/20 16:08:00 CDT lidocaine 2019- No Route: IV, Me moria (ANES) 0-03 Drug form: l 21:08: INJ, ONCE, Stop date: 05/17/20 16:08:00 CDT fentaNYL 2020 No Route: IV, Mem oria (ANES) 0-03 [...] INJ, ONCE, Stop date: 05/17/20 16:03:00 CDT tranexamic 2019-08 No Route: IV, M emoria acid (ANES) 0-03 Drug form: l 21:03: INJ, ONCE, Stop date: 05/17/20 16:03:00 CDT ceFAZolin 2019-08 No Route: IV, Me moria (ANES) 0-03 Drug form: l 20:53: INJ, ONCE, Stop date: 05/17/20 15:53:00 CDT ceFAZolin 2019-08 No Route: IV, Me moria (ANES) 0-03 Drug form: l 20:53: INJ, ONCE, Stop date: 05/17/20 15:53:00 CDT vancomycin 2019-08 No Route: IV, M emoria (ANES) 1000 0-03 Drug form: l mg 20:20: INJ, Start date: 05/17/20 15:20:00 CDT, Stop date: 05/17/20 16:20:00 CDT vancomycin 2019-08 No Route: IV, M emoria (ANES) 1000 0-03 Drug form: l mg 20:20: INJ, Start date: 05/17/20 15:20:00 CDT, Stop date: 05/17/20 16:20:00 CDT Lactated 2019-08 No Route: IV, Mem oria Ringers 0-03 Total l Injection 20:02: Volume: Roberta nn IV (ANES) 00 1,000, 1000 mL Start date: 05/17/20 15:02:00 CDT, Stop date: 05/17/20 16:02:00 CDT Lactated 2019-08 No Route: IV, Mem oria Ringers 0-03 Total l Injection 20:02: Volume: Roberta nn IV (ANES) 00 1,000, 1000 mL Start date: 05/17/20 15:02:00 CDT, Stop date: 05/17/20 16:02:00 CDT Tranexamic 2019-08 No Notes: Memor ia Acid 0-03 (Same As: l 20:00: Cyklokapro Seeley 00 n) ropivacaine 2019-08 No Notes: Memoria 0-03 NOT FOR IV l 20:00: use Seeley 00 Ropivacain e 5 mg/mL (49.25 mL) Epinephrin e 1 mg/mL (0.5 mL) Clonidine 0.1 mg/mL (0.8 mL) Ketorolac 30 mg/mL (1 mL) Normal Saline 48.45 mL Cefazolin 2019-08 No Notes: Memori a 0-03 (Same As: l 20:00: Reg [place] 00 Kefzol) MEDICATION WASTE Product Size: 1000 mg Product Wasted: ___ mg Vancomycin 2019-08 No 2000 mg: Me moria 0-03 infuse l 20:00: over 2.5 Ney 00 hours For adult patients only: Round to nearest 250 mg per Medical Staff approval MEDICATION WASTE Product Size: 1000 mg Product Wasted: ___ mg Tranexamic 2019-08 No Notes: Memor ia Acid 0-03 (Same As: l 20:00: Cyklokapro Ney 00 n) ropivacaine 2019-08 No Notes: Memoria 0-03 NOT FOR IV l 20:00: use Ney 00 Ropivacain e 5 mg/mL (49.25 mL) Epinephrin e 1 mg/mL (0.5 mL) Clonidine 0.1 mg/mL (0.8 mL) Ketorolac 30 mg/mL (1 mL) Normal Saline 48.45 mL Cefazolin 2019-08 No Notes: Memori a 0-03 (Same As: l 20:00: Ancef, Ney 00 Kefzol) MEDICATION WASTE Product Size: 1000 mg Product Wasted: ___ mg Vancomycin 2019-08 No 2000 mg: Me moria 0-03 infuse l 20:00: over 2.5 Ney 00 hours For adult patients only: Round to nearest 250 mg per Medical Staff approval MEDICATION WASTE Product Size: 1000 mg Product Wasted: ___ mg celecoxib 2019-08 Yes Notes: Memori a 0-03 NSAID. l 19:39: Please [place] 00 check indication . Not for seizure. (Same As: CeleBREX) Lactated 2019-08 No 1,000 mL, Pna shantal Ringers IV 0-03 Rate: 100 l 1,000 mL 19:39: ml/hr, Seeley 00 Infuse over: 10 hr, Route: IV, Dosing Weight 64.636 kg, Total Volume: 1,000, Start date: 05/17/20 14:39:00 CDT, Duration: 30 day, Stop date: 06/16/20 14:38:00 PSYCH SPECIALIST, 1.71, m2, 0 Acetaminoph 2019-08 Yes Notes: Max Memoria en 0-03 acetaminop l 19:39: hen 4000 Ney 00 mg/day (4 gm/day). (Same as: Tylenol Extra Strength) Famotidine 2019-08 Yes Notes: Memor ia 20 MG Oral 0-03 (Same as: l Tablet 19:39: Pepcid) Ney 00 Calcium 2019-08 Yes 1,000 mL, Memor ia Chloride 0-03 1,000 l 0.0014 19:39: ml/hr, Seeley MEQ/ML / 00 Infuse Potassium Over: 1 Chloride hr, Route: 0.004 IV, 1,000, MEQ/ML / Drug form: Sodium INJ, ONCE, Chloride Priority: 0.103 STAT, MEQ/ML / Dosing Sodium Weight Lactate 64.636 kg, 0.028 Start MEQ/ML date: Injectable 05/17/20 Solution 14:39:00 CDT, Stop date: 05/17/20 14:39:00 CDT, 0 celecoxib 2019-08 Yes Notes: Memori a 0-03 NSAID. l 19:39: Please [place] 00 check indication . Not for seizure. (Same As: CeleBREX) Lactated 2019-08 No 1,000 mL, Pan shantal Ringers IV 0-03 Rate: 100 l 1,000 mL 19:39: ml/hr, Seeley 00 Infuse over: 10 hr, Route: IV, Dosing Weight 64.636 kg, Total Volume: 1,000, Start date: 05/17/20 14:39:00 CDT, Duration: 30 day, Stop date: 06/16/20 14:38:00 PSYCH SPECIALIST, 1.71, m2, 0 Acetaminoph 2019-08 Yes Notes: Max Memoria en 0-03 acetaminop l 19:39: hen 4000 Ney 00 mg/day (4 gm/day). (Same as: Tylenol Extra Strength) Famotidine 2019-08 Yes Notes: Memor ia 20 MG Oral 0-03 (Same as: l Tablet 19:39: Pepcid) Seeley 00 Calcium 2019-08 Yes 1,000 mL, Memor ia Chloride 0-03 1,000 l 0.0014 19:39: ml/hr, Seeley MEQ/ML / 00 Infuse Potassium Over: 1 Chloride hr, Route: 0.004 IV, 1,000, MEQ/ML / Drug form: Sodium INJ, ONCE, Chloride Priority: 0.103 STAT, MEQ/ML / Dosing Sodium Weight Lactate 64.636 kg, 0.028 Start MEQ/ML date: Injectable 05/17/20 Solution 14:39:00 CDT, Stop date: 05/17/20 14:39:00 CDT, 0 Enoxaparin 2019-08 No 40 mg, Memor ia 0-03 Route: l 11:25: SUB-Q, Drug form: INJ, [id number], Dosing Weight 68.182, kg, Start date: 05/17/20 6:25:00 CDT, Duration: 30 day, Stop date: 06/15/20 6:25:00 PSYCH SPECIALIST Enoxaparin 2019-08 No 40 mg, Memor ia 0-03 Route: l 11:25: SUB-Q, Drug form: INJ, [id number], Dosing Weight 68.182, kg, Start date: 05/17/20 6:25:00 CDT, Duration: 30 day, Stop date: 06/15/20 6:25:00 PSYCH SPECIALIST HWA 2019-08 No Suhas SENIOR Memoria 0-03 pls l 03:00: complete [place] HWA for order verificati , Drug form: MISC, Route: MISC, ONCALL, 05/16/20 22:00:00 CDT, Duration: 30 day, Stop date: 06/15/20 20:59:00 PSYCH SPECIALIST, 0 HWA 2019-08 No Suhas SENIOR Memoria 0-03 pls l 03:00: complete Ney HWA for order verificati , Drug form: MISC, Route: MISC, ONCALL, 05/16/20 22:00:00 CDT, Duration: 30 day, Stop date: 06/15/20 20:59:00 PSYCH SPECIALIST, 0 Bupropion 2019-08 Yes 75 mg, PO, Me moria 0-03 Daily, 0 l 02:45: Refill(s) Seeley 00 Bupropion 2019-08 Yes 75 mg, PO, Me moria 0-03 Daily, 0 l 02:45: Refill(s) [place] 00 Acetaminoph 2019-08 Yes 1 tab, PO, Memoria en 325 MG / 0-03 TID, 0 l Hydrocodone 02:33: Refill(s) H ermann Bitartrate 00 7.5 MG Oral Tablet [[place] 7.5/325] Trazodone 2019-08 Yes See Memoria Hydrochlori 0-03 Instructio l de 100 MG 02:33: ns, 2 tab Her cantu Oral Tablet 00 PO BID, 0 Refill(s) baclofen 20 2019-08 Yes 20 mg = 1 M emoria mg oral 0-03 tab, PO, l tablet 02:33: TID, PRN Seeley 00 as needed for muscle spasm, 0 Refill(s) Acetaminoph 2019-08 Yes 1 tab, PO, Memoria en 325 MG / 0-03 TID, 0 l Hydrocodone 02:33: Refill(s) H ermann Bitartrate 00 7.5 MG Oral Tablet [[place] 7.5/325] Trazodone 2019-08 Yes See Memoria Hydrochlori 0-03 Instructio l de 100 MG 02:33: ns, 2 tab Her cantu Oral Tablet 00 PO BID, 0 Refill(s) baclofen 20 2019-08 Yes 20 mg = 1 M emoria mg oral 0-03 tab, PO, l tablet 02:33: TID, PRN Seeley 00 as needed for muscle spasm, 0 Refill(s) Dilaudid 2019-08 No Notes: Memoria 0-02 Same as: l 23:30: Dilaudid Ney Acetaminoph 2019-08 No Notes: Do M emoria en 325 MG / 0-02 not exceed l Hydrocodone 23:30: 4gm/day of Seeley Bitartrate 00 acetaminop 10 MG Oral hen. (Same Tablet as: [place] [[place] 325/10) 325] Dilaudid 2019-08 No Notes: Memoria 0-02 Same as: l 23:30: Dilaudid Ney Acetaminoph 2019-08 No Notes: Do M emoria en 325 MG / 0-02 not exceed l Hydrocodone 23:30: 4gm/day of Seeley Bitartrate 00 acetaminop 10 MG Oral hen. (Same Tablet as: [place] [[place] 325/10) 10325] Dextrose 2019-08 No 12.5 gm, Memor ia 50% Syringe 0-02 25 mL, l (D50W) 23:25: Route: Ney 00 IVP, Drug Form: INJ, Dosing Weight 68.182, kg, PRN, PRN Blood Glucose Results, Start date: 05/16/20 18:25:00 CDT, Duration: 30 day, Stop date: 06/15/20 17:24:00 PSYCH SPECIALIST, 0 Glucagon 2019-08 No 1 mg, Memoria 0-02 Route: IM, l 23:25: Drug form: Ney 00 PDR/INJ, PRN, Dosing Weight 68.182, kg, PRN Blood Glucose Results, Start date: 05/16/20 18:25:00 CDT, Duration: 30 day, Stop date: 06/15/20 17:24:00 PSYCH SPECIALIST, 0 Dextrose 2019-08 No 12.5 gm, Memor ia 50% Syringe 0-02 25 mL, l (D50W) 23:25: Route: Ney 00 IVP, Drug Form: INJ, Dosing Weight 68.182, kg, PRN, PRN Blood Glucose Results, Start date: 05/16/20 18:25:00 CDT, Duration: 30 day, Stop date: 06/15/20 17:24:00 PSYCH SPECIALIST, 0 Glucagon 2019- No 1 mg, Memoria 0-02 Route: IM, l 23:25: Drug form: Ney 00 PDR/INJ, PRN, Dosing Weight 68.182, kg, PRN Blood Glucose Results, Start date: 05/16/20 18:25:00 CDT, Duration: 30 day, Stop date: 06/15/20 17:24:00 PSYCH SPECIALIST, 0 Lidocaine 2019- No 1 ml, Memoria Hydrochlori 0-02 Route: l de 10 MG/ML 21:54: SUB-Q, Herm zehra Injectable 00 Dosing Solution Weight 68.182, kg, ONCE, STAT, Start date: 05/16/20 16:54:00 CDT, Stop date: 05/16/20 16:54:00 CDT Lidocaine 2019- No 1 ml, [facility] Hydrochlori 0-02 Route: l de 10 MG/ML 21:54: SUB-Q, Herm zehra Injectable 00 Dosing Solution Weight 68.182, kg, ONCE, STAT, Start date: 05/16/20 16:54:00 CDT, Stop date: 05/16/20 16:54:00 CDT morphine 2019-08 No Notes: [facility] Sulfate 0-02 (Same l 20:32: as:MORPhin [place]ley 00 e Sulfate) morphine 2019-08 No Notes: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 CenterNvhcxlgAZYQMJBUKC6360-72-57 10:02:00 Test Item Value Reference Range Interpretation Comments MCHC (test code = MCHC) 34.1 32.0-36.0 [facility] CenterByrlxijPOTJLOSGBQ9283-89-74 10:02:00 Test Item Value Reference Range Interpretation Comments RDW (test code = RDW) 13.0 11.5-14.5 [facility] CenterEcauhulFGYLRSMMGB1704-23-49 10:02:00 Test Item Value Reference Range Interpretation Comments Platelet (test code = Platelet) 176 133-450 [facility] CenterYofygwqHAAFMHSJEK6477-96-78 10:02:00 Test Item Value Reference Range Interpretation Comments MPV (test code = MPV) 7.8 7.4-10.[address] [facility]SPE[facility] YUDPQJYWA8476-93-07 10:02:00 Test Item Value Reference Range Interpretation Comments Hgb A1C (test code = Hgb A1C) 5.6 [facility] CenterannCHEM FGBYC9289-82-67 10:02:13487Gswibnxb HermannCHEM PANEL 2020-05-17 10:02:0014[facility] HollywoodannCulture: Hxcga5495-15-38 01:06:20 Test Item Value Reference Range Interpretation Comments Culture: Urine (test 10,000 - 50,000 CFU/mL code = Culture: Urine) Skin [place] [facility] CenterLdmsiynEAOCXLEGDD1469-65-24 00:32:00Not Detected (05/16/20 7:32 PM) [facility] CenterBzjwmqmMNTLZSLCZE2700-48-54 00:32:00 Test Item Value Reference Range Interpretation Comments Coronavirus (COVID-19) Not Detected (05/16/20 GILDA (test code = 7:32 PM) Coronavirus (COVID-19) GILDA) [facility] CenterannURINE AND KWYYA3626-16-85 00:21:00Amber *ABN*(05/16/20 7:21 PM) [facility] [id number] 00:21:00Clear (05/16/20 7:21 PM) [facility] WQUMK9875-52-04 00:21:00 Test Item Value Reference Range Interpretation Comments UA Spec Grav (test code = UA Spec 1.027 1 Grav) [facility] ARXWA3398-00-89 00:21:00 Test Item Value Reference Range Interpretation Comments UA pH (test code = UA pH) 5.0 1 5.0-8.0 [facility] [id number] 00:21:00Negative *NA*(05/16/20 7:21 PM) [facility] OIVHE9398-88-40 00:21:00Negative (05/16/20 7:21 PM) [facility] QTXWJ6765-47-59 00:21:00Negative (05/16/20 7:21 PM) [facility] MUMSJ0904-80-56 00:21:00Trace *ABN*(05/16/20 7:21 PM) [facility] VPOSG6763-76-03 00:21:0032[facility] JMSST3289-96-70 00:21:004[facility] TJOEX1190-99-57 00:21:003 [facility] NLOLY4412-47-70 00:21:00 Test Item Value Reference Range Interpretation Comments UA Color (test code = Joanne *ABN*(05/16/20 UA Color) 7:21 PM) [facility] [id number] 00:21:00 Test Item Value Reference Range Interpretation Comments UA Turbidity (test code = Clear (05/16/20 7:21 UA Turbidity) PM) [facility] [id number] 00:21:00 Test Item Value Reference Range Interpretation Comments UA Spec Grav (test code = UA Spec 1.027 1 Grav) [facility] HXCAH9483-03-47 00:21:00 Test Item Value Reference Range Interpretation Comments UA pH (test code = UA pH) 5.0 1 5.0-8.0 [facility] QSNKS7657-33-88 00:21:00 Test Item Value Reference Range Interpretation Comments UA Protein (test code = UA Negative mg/dL Protein) [facility] [id number] 00:21:00 Test Item Value Reference Range Interpretation Comments UA Glucose (test code = UA Negative mg/dL Glucose) [facility] [id number] 00:21:00 Test Item Value Reference Range Interpretation Comments UA Ketones (test code = UA Ketones) 80 mg/dL [facility] YVFWT7909-21-47 00:21:00 Test Item Value Reference Range Interpretation Comments UA Bili (test code = Negative *NA*(05/16/20 UA Bili) 7:21 PM) [facility] [id number] 00:21:00 Test Item Value Reference Range Interpretation Comments UA Blood (test code = Negative (05/16/20 7:21 UA Blood) PM) [facility] [id number] 00:21:00 Test Item Value Reference Range Interpretation Comments UA Nitrite (test code Negative (05/16/20 7:21 = UA Nitrite) PM) [facility] [id number] 00:21:00 Test Item Value Reference Range Interpretation Comments UA Leuk Est (test code Trace *ABN*(05/16/20 = UA Leuk Est) 7:21 PM) [facility] UPGEG0170-07-07 00:21:00 Test Item Value Reference Range Interpretation Comments UA Sq Epi (test code = UA Sq Occasional /LPF Epi) [facility] [id number] 00:21:00 Test Item Value Reference Range Interpretation Comments UA WBC (test code = 32 See_Comment [Automa miryam message] The UA WBC) system which ge nerated this result transmit miryam reference range : <=5. The reference range was not used to interpr et this result as jose l/abnormal. [facility] SHLHB7434-57-20 00:21:00 Test Item Value Reference Range Interpretation Comments UA RBC (test code = 4 See_Comment [Automa miryam message] The UA RBC) system which ge nerated this result transmit miryam reference range : <=2. The reference range was not used to interpr et this result as jose l/abnormal. [facility] [id number] 00:21:00 Test Item Value Reference Range Interpretation Comments UA Bacteria (test code = UA Occasional /HPF Bacteria) [facility] [id number] 00:21:00 Test Item Value Reference Range Interpretation Comments UA Mucus (test code = UA Mucus) Few /LPF [facility] [id number] 00:21:00 Test Item Value Reference Range Interpretation Comments UA Hyal Cast (test 3 See_Comment [Automat ed message] The code = UA Hyal Cast) system which generated this result transmit miryam reference range : <=2. The reference range was not used to interpr et this result as jose l/abnormal. [facility] [id number] 00:21:00 Test Item Value Reference Range Interpretation Comments UA Urobilinogen (test code = UA <=1.0 mg/dL 0.1-1.0 Urobilinogen) [facility]annCHEM [id number] 23:58:0043[facility] HermannCHEM PANEL 2020-05-16 23:58:00 Test Item Value Reference Range Interpretation Comments Vitamin D, 25-OH, Total (test code = 43 30-100 Vitamin D, 25-OH, Total) [facility]ysOOD BANK OWMHRCD9203-15-11 20:27:00Negative (05/16/20 3:27 PM) [facility]annCHEM FZFHX6183-43-03 20:27:43843Qguwbelv HermannCHEM PANEL 2020-05-16 20:27:0013[facility] HermannCHEM NBIKU6697-06-92 20:27:000.90[facility] HermannCHEM ZOOWF3069-52-35 20:27:76297Ofhtyser HermannCHEM TOVZA1962-95-51 20:27:003.3[facility] HermannCHEM QBZBS3607-50-85 20:27:22221Kyvcfrka HermannCHEM ALLXJ5611-16-37 20:27:0024[facility] HermannCHEM LSXEQ2941-61-70 20:27:0012.3 [facility]annCHEM GWBDK5319-23-40 20:27:009.7[facility] HermannCHEM PANEL 2020-05-16 20:27:0068[facility] PzbkxrfMHEYGDDZIINJ3235-62-32 20:27:0012.3[facility] IldoqkiMZPEMOEKZS6263-06-55 20:27:007.8[facility] HuetlopLUMRVOIWMA0873-52-47 20:27:004.00[facility] UlpqmedJSFSXDVDXD9390-99-70 20:27:0013.1[facility] Ney QXFQCGFKHG8554-81-00 20:27:0038.4[facility] ColfeqmOJUMMIJXXR4831-43-67 20:27:00 96.0[facility] TcctqqaUYKXMZGXCV3567-15-86 20:27:00 Test Item Value Reference Range Interpretation Comments MCH (test code = MCH) 32.7 pg 27.0-31.0 [facility] ZylkvkjROKQBUWJFW5559-28-26 20:27:0034.0[facility]annHEMATOLOGY 2020-05-16 20:27:0013.0[facility] XcwkjmjBGLBFCMKBX0676-07-30 20:27:27685Crmksteb TbrllmkTFONMJBLLA0212-77-60 20:27:008.2[facility] TmqaafbDPTZFJAGHS8351-52-14 20:27:0072.2[facility] SjpjsdbZUXJXKNHOI7827-47-02 20:27:0019.8[facility] IIIKVXADUU5096-67-32 20:27:006.7[facility] BfxbwolFXOJWTHNTQ6066-75-16 20:27:000.9 [facility] GpqvxaqAETFWPTRAP2506-39-14 20:27:000.4[facility] HermannHEMATOLOGY 2020-05-16 20:27:005.6[facility] NcvkvndSENVVQSTXO8815-55-57 20:27:001.6[facility] FfrxlvlCPOQYKIETH4164-60-96 20:27:000.5[facility] RcmfeadQTKICZYNLW4839-73-09 20:27:000.1[facility]annBLOOD BANK GVZZGAV8520-86-02 20:27:00 Test Item Value Reference Range Interpretation Comments ABO/Rh (test code = ABO/Rh) A POS [facility]annBL[facility] B[facility] QAKHVBO0344-13-45 20:27:00 Test Item Value Reference Range Interpretation Comments Antibody Scrn (test Negative (05/16/20 3:27 code = Antibody Scrn) PM) [facility]annCHEM VGTRN4655-23-66 20:27:00 Test Item Value Reference Range Interpretation Comments Glucose Lvl (test code = Glucose Lvl) 117 70-99 [place] 908100-10-02 20:27:00 Test Item Value Reference Range Interpretation Comments BUN (test code = BUN) 13 7-22 [facility]2020-10-02 20:27:00 Test Item Value Reference Range Interpretation Comments Creatinine Lvl (test code = Creatinine 0.90 0.50-1.40 Lvl) [facility]2020-10-02 20:27:00 Test Item Value Reference Range Interpretation Comments Sodium Lvl (test code = Sodium Lvl) 139 135-145 [facility]2020-10-02 20:27:00 Test Item Value Reference Range Interpretation Comments Potassium Lvl (test code = Potassium 3.3 3.5-5.1 Lvl) [facility]2020-10-02 20:27:00 Test Item Value Reference Range Interpretation Comments Chloride Lvl (test code = Chloride Lvl) 106 95-109 [facility]2020-10-02 20:27:00 Test Item Value Reference Range Interpretation Comments CO2 (test code = CO2) 24 24-32 [facility]2020-10-02 20:27:00 Test Item Value Reference Range Interpretation Comments AGAP (test code = AGAP) 12.3 10.0-20.0 [facility]2020-10-02 20:27:00 Test Item Value Reference Range Interpretation Comments Calcium Lvl (test code = Calcium Lvl) 9.7 8.5-10.5 [facility]2020-10-02 20:27:00 Test Item Value Reference Range Interpretation Comments eGFR (test code = eGFR) 68 [facility] CenterFhnyeejTESWUFMUGAEW0469-22-54 20:27:00 Test Item Value Reference Range Interpretation Comments AGAP (test code = AGAP) 12.3 10.0-20.0 [facility] CenterQexdfhpPWOMRVHVNV0961-85-95 20:27:00 Test Item Value Reference Range Interpretation Comments WBC (test code = WBC) 7.8 3.7-10.4 [facility] CenterUtccvtxICDUWJIZDG3615-03-99 20:27:00 Test Item Value Reference Range Interpretation Comments RBC (test code = RBC) 4.00 4.20-5.40 [facility] CenterClogttbJAYGQRDEIZ7307-01-99 20:27:00 Test Item Value Reference Range Interpretation Comments Hgb (test code = Hgb) 13.1 12.0-16.0 [facility] CenterDzdxlhhBOSDTJAQBL7405-95-51 20:27:00 Test Item Value Reference Range Interpretation Comments Hct (test code = Hct) 38.4 36.0-48.0 [facility] CenterFnesdroKAHHZXIRNM4237-44-55 20:27:00 Test Item Value Reference Range Interpretation Comments MCV (test code = MCV) 96.0 80.0-98.0 [facility] CenterJiijoirDFZRJBGIDH2938-24-24 20:27:00 Test Item Value Reference Range Interpretation Comments MCH (test code = MCH) 32.7 pg 27.0-31.0 [facility] CenterAysczvjVRMEITSKGX4145-80-82 20:27:00 Test Item Value Reference Range Interpretation Comments MCHC (test code = MCHC) 34.0 32.0-36.0 [facility] CenterTameaudJPPHTOIUID7870-59-74 20:27:00 Test Item Value Reference Range Interpretation Comments RDW (test code = RDW) 13.0 11.5-14.5 [facility] CenterJfazcznGCFAVYTZBO5605-62-30 20:27:00 Test Item Value Reference Range Interpretation Comments Platelet (test code = Platelet) 178 133-450 [facility] CenterPjbzjpkGAUBIUGVCJ6141-04-33 20:27:00 Test Item Value Reference Range Interpretation Comments MPV (test code = MPV) 8.2 7.4-10.4 [facility] CenterFhkjiszJMJYEMKYTD2570-23-18 20:27:00 Test Item Value Reference Range Interpretation Comments Segs (test code = Segs) 72.2 45.0-75.0 [place] 450240-10-02 20:27:00 Test Item Value Reference Range Interpretation Comments Lymphocytes (test code = Lymphocytes) 19.8 20.0-40.0 [place] [address]-10-02 20:27:00 Test Item Value Reference Range Interpretation Comments Monocytes (test code = Monocytes) 6.7 2.0-12.0 [facility] CenterXajcvbaHGEZPPBRCM0103-46-45 20:27:00 Test Item Value Reference Range Interpretation Comments Eosinophils (test code = 0.9 See_Comment [A utomated message] The Eosinophils) system which ge nerated this result tra nsmitted reference range : <=4.0. The reference r thierry was not used to int erpret this result as normal/abnormal . [facility] CenterBknbfilVTKOGPSKBR6809-45-32 20:27:00 Test Item Value Reference Range Interpretation Comments Basophils (test code = 0.4 See_Comment [Aut omated message] The Basophils) system which ge nerated this result tra nsmitted reference range : <=1.0. The reference r thierry was not used to int erpret this result as normal/abnormal . [facility] CenterGspaymfABYOUBWOXB9388-99-80 20:27:00 Test Item Value Reference Range Interpretation Comments Neutrophils # (test code = Neutrophils 5.6 1.5-8.1 #) [facility] CenterXiktwysHGPHFWAGZP0822-91-84 20:27:00 Test Item Value Reference Range Interpretation Comments Lymphocytes # (test code = Lymphocytes 1.6 1.0-5.5 #) [facility] CenterKhyylnhJGAYCKYYZX1731-07-88 20:27:00 Test Item Value Reference Range Interpretation Comments Monocytes # (test code 0.5 See_Comment [Aut omated message] The = Monocytes #) system which generated this result tra nsmitted reference range : <=0.8. The reference r thierry was not used to int erpret this result as normal/abnormal . [facility] CenterQjzkxwbXPNCKDCRTW5814-87-79 20:27:00 Test Item Value Reference Range Interpretation Comments Eosinophils # (test code 0.1 See_Comment [A utomated message] The = Eosinophils #) system ic h generated this result tra nsmitted reference range : <=0.5. The reference r thierry was not used to int erpret this result as normal/abnormal . [facility] HermannCARDIAC ADIZWOH4648-59-57 05:41:0050Memoriri HermannCARDIAC HJZCQGC5896-38-78 05:41:14082Bmkogoge HermannCARDIAC ICXNPYT4392-33-83 05:41:00 <0.02[facility] HermannCHEM NBVIB3351-02-79 05:41:59646Shfbxeeo HermannCHEM DPWXC0006-28-87 05:41:0012[facility] HermannCHEM XNDLA7177-73-21 05:41:000.88 [facility]annCHEM YTMEJ3268-41-32 05:41:79968Vteegdia HermannCHEM PANEL 2020-01-23 05:41:004.4[facility] HermannCHEM HFABI2585-48-88 05:41:22692Lwrhfqhf HermannCHEM TSNVI1704-12-94 05:41:0025[facility] HermannCHEM TBSYO4019-15-58 05:41:008.7[facility] HermannCHEM PDYBQ9407-35-81 05:41:007.0[facility] HermannCHEM TVIGH7312-95-38 05:41:003.6[facility] HermannCHEM LQHFR4368-31-79 05:41:0019 [facility]annCHEM WZDJR3413-58-78 05:41:0029[facility] HermannCHEM PANEL 2020-01-23 05:41:0069[facility] HermannCHEM HRFKG2622-42-34 05:41:000.7[facility] HermannCHEM HFWRY5171-92-23 05:41:0011.4[facility] HermannCHEM MJZDI7339-97-72 05:41:00 Test Item Value Reference Range Interpretation Comments B/C Ratio (test code = B/C Ratio) 14 1 6-25 [facility]annCHEM BFCZL5052-39-87 05:41:003.4[facility] HermannCHEM PANEL 2020-01-23 05:41:00 Test Item Value Reference Range Interpretation Comments A/G Ratio (test code = A/G Ratio) 1.1 1 0.7-1.6 [facility]annCHEM EXTFF4216-26-84 05:41:0069[facility] HermannHEMATOLOGY 2020-01-23 05:41:009.3[facility] OgmsvqaXDPRDODENN0377-44-58 05:41:003.87[facility] JnzmmglAWYIDYLUQH0411-54-11 05:41:0012.7[facility] YjalnqxGYTLGXNBTA2212-24-43 05:41:0036.6[facility] VufxuzvCJTYOWBIFF4714-93-56 05:41:0094.6[facility] FGQEPEJXSA2049-03-04 05:41:00 Test Item Value Reference Range Interpretation Comments MCH (test code = MCH) 32.9 pg 27.0-31.0 [facility] UeeytdzVARUFXICKZ6156-09-88 05:41:0034.8[facility] HermannHEMATOLOGY 2020-01-23 05:41:0012.9[facility] MtymmvzPBOPIOUKUX5849-21-80 05:41:70460Pakqxphs CpdoicaMLASLFESWC6702-89-27 05:41:008.3[facility] YcsyrolALKUHHWGNA8837-36-50 05:41:00 Test Item Value Reference Range Interpretation Comments PT (test code = PT) 14.0 s 12.0-14.7 [facility] NhyyzzlPQYTRJSSIN1389-62-60 05:41:00 Test Item Value Reference Range Interpretation Comments INR (test code = INR) 1.08 1 0.85-1.17 [facility] VzhvjyfCCUEWEPEEN2031-83-11 05:41:0075.3[facility] HermannHEMATOLOGY 2020-01-23 05:41:0016.6[facility] CtabzsrQQGBWUEEPL0531-96-96 05:41:006.7[facility] KjtztkjQIBJRUEUBN1790-00-81 05:41:001.1[facility] EoetwzyWXWQWLTAQL9613-21-30 05:41:000.3[facility] EnevhvzXFTDLECVYY3608-20-37 05:41:007.0[facility] Ney JWMDJLOKXN2989-23-30 05:41:001.5[facility] RvqeiiwKLJXRWKONK9648-53-51 05:41:000.6 [facility] QugqfzuLMTPUVOYOP5039-72-54 05:41:000.1[facility] HermannCARDIAC ENZYMES 2020-01-23 05:41:00 Test Item Value Reference Range Interpretation Comments BNP (test code = BNP) 50 [facility] HermannCARDIAC GGUKQFU9908-26-33 05:41:00 Test Item Value Reference Range Interpretation Comments Total CK (test code = Total CK) 106 12-191 [facility] HermannCARDIAC GERFDIY4625-64-85 05:41:00 Test Item Value Reference Range Interpretation Comments Troponin-I (test code no gt See_Comment [Auto mated message] The = Troponin-I) system which g enerated this result transmit miryam reference range : <=0.40. The reference r thierry was not used to interpr et this result as jose l/abnormal. [place] 908100-06-10 05:41:00 Test Item Value Reference Range Interpretation Comments Glucose Lvl (test code = Glucose Lvl) 142 70-99 [place] 908100-06-10 05:41:00 Test Item Value Reference Range Interpretation Comments BUN (test code = BUN) 12 7-22 [place] 908100-06-10 05:41:00 Test Item Value Reference Range Interpretation Comments Creatinine Lvl (test code = Creatinine 0.88 0.50-1.40 Lvl) [place] 908100-06-10 05:41:00 Test Item Value Reference Range Interpretation Comments Sodium Lvl (test code = Sodium Lvl) 138 135-145 [place] 908100-06-10 05:41:00 Test Item Value Reference Range Interpretation Comments Potassium Lvl (test code = Potassium 4.4 3.5-5.1 Lvl) [place] 908100-06-10 05:41:00 Test Item Value Reference Range Interpretation Comments Chloride Lvl (test code = Chloride Lvl) 106 95-109 [place] 908100-06-10 05:41:00 Test Item Value Reference Range Interpretation Comments CO2 (test code = CO2) 25 24-32 [place] 908100-06-10 05:41:00 Test Item Value Reference Range Interpretation Comments Calcium Lvl (test code = Calcium Lvl) 8.7 8.5-10.5 [place] 908100-06-10 05:41:00 Test Item Value Reference Range Interpretation Comments Total Protein (test code = Total 7.0 6.4-8.4 Protein) [place] 908100-06-10 05:41:00 Test Item Value Reference Range Interpretation Comments Albumin Lvl (test code = Albumin Lvl) 3.6 3.5-5.0 [place] 908100-06-10 05:41:00 Test Item Value Reference Range Interpretation Comments ALT (test code = ALT) 19 See_Comment [Auto mated message] The system which ge nerated this result transmit miryam reference range : <=65. The reference range was not used to interpr et this result as jose l/abnormal. [facility]2020-06-10 05:41:00 Test Item Value Reference Range Interpretation Comments AST (test code = AST) 29 See_Comment [Auto mated message] The system which ge nerated this result transmit miryam reference range : <=37. The reference range was not used to interpr et this result as jose l/abnormal. [facility]2020-06-10 05:41:00 Test Item Value Reference Range Interpretation Comments Alk Phos (test code = Alk Phos) 69 39-136 [facility]2020-06-10 05:41:00 Test Item Value Reference Range Interpretation Comments Bili Total (test code = Bili Total) 0.7 0.2-1.3 [facility]2020-06-10 05:41:00 Test Item Value Reference Range Interpretation Comments AGAP (test code = AGAP) 11.4 10.0-20.0 [facility]2020-06-10 05:41:00 Test Item Value Reference Range Interpretation Comments B/C Ratio (test code = B/C Ratio) 14 1 6-25 [facility]2020-06-10 05:41:00 Test Item Value Reference Range Interpretation Comments Globulin (test code = Globulin) 3.4 2.7-4.2 [facility]2020-06-10 05:41:00 Test Item Value Reference Range Interpretation Comments A/G Ratio (test code = A/G Ratio) 1.1 1 0.7-1.6 [facility]2020-06-10 05:41:00 Test Item Value Reference Range Interpretation Comments eGFR (test code = eGFR) 69 [facility] CenterQgyayovKLYPNVKUXY4044-85-54 05:41:00 Test Item Value Reference Range Interpretation Comments WBC (test code = WBC) 9.3 3.7-10.4 [facility] CenterKmqvzpvRSMRZDOBLF6178-55-04 05:41:00 Test Item Value Reference Range Interpretation Comments RBC (test code = RBC) 3.87 4.20-5.40 [facility] CenterOemcigpRPUHHQJOVF8803-41-91 05:41:00 Test Item Value Reference Range Interpretation Comments Hgb (test code = Hgb) 12.7 12.0-16.0 [facility] CenterEyfbphjYCESDVCOIO0576-22-29 05:41:00 Test Item Value Reference Range Interpretation Comments Hct (test code = Hct) 36.6 36.0-48.0 [place] 450240-06-10 05:41:00 Test Item Value Reference Range Interpretation Comments MCV (test code = MCV) 94.6 80.0-98.0 [place] 450240-06-10 05:41:00 Test Item Value Reference Range Interpretation Comments MCH (test code = MCH) 32.9 pg 27.0-31.0 [facility] CenterJcnrxtsIZZGUIVYXP6658-02-51 05:41:00 Test Item Value Reference Range Interpretation Comments MCHC (test code = MCHC) 34.8 32.0-36.0 [place] 450240-06-10 05:41:00 Test Item Value Reference Range Interpretation Comments RDW (test code = RDW) 12.9 11.5-14.5 [place] 450240-06-10 05:41:00 Test Item Value Reference Range Interpretation Comments Platelet (test code = Platelet) 185 133-450 [facility] CenterPyctojlAMNVXZMZDU3806-13-60 05:41:00 Test Item Value Reference Range Interpretation Comments MPV (test code = MPV) 8.3 7.4-10.4 [facility] CenterDynnuyuZGNZWEOAKG1285-97-60 05:41:00 Test Item Value Reference Range Interpretation Comments PT (test code = PT) 14.0 s 12.0-14.7 [facility] CenterQgzjusbIAKBMEFXWI6111-88-85 05:41:00 Test Item Value Reference Range Interpretation Comments INR (test code = INR) 1.08 1 0.85-1.17 [id number] 05:41:00 Test Item Value Reference Range Interpretation Comments Segs (test code = Segs) 75.3 45.0-75.0 [facility] [id number] 05:41:00 Test Item Value Reference Range Interpretation Comments Lymphocytes (test code = Lymphocytes) 16.6 20.0-40.0 [place] [id number] 05:41:00 Test Item Value Reference Range Interpretation Comments Monocytes (test code = Monocytes) 6.7 2.0-12.0 [place] [id number] 05:41:00 Test Item Value Reference Range Interpretation Comments Eosinophils (test code = 1.1 See_Comment [A utomated message] The Eosinophils) system which ge nerated this result tra nsmitted reference range : <=4.0. The reference r thierry was not used to int erpret this result as normal/abnormal . [facility] [id number] 05:41:00 Test Item Value Reference Range Interpretation Comments Basophils (test code = 0.3 See_Comment [Aut omated message] The Basophils) system which ge nerated this result tra nsmitted reference range : <=1.0. The reference r thierry was not used to int erpret this result as normal/abnormal . [facility] [id number] 05:41:00 Test Item Value Reference Range Interpretation Comments Neutrophils # (test code = Neutrophils 7.0 1.5-8.1 #) [facility] [id number] 05:41:00 Test Item Value Reference Range Interpretation Comments Lymphocytes # (test code = Lymphocytes 1.5 1.0-5.5 #) [facility] [id number] 05:41:00 Test Item Value Reference Range Interpretation Comments Monocytes # (test code 0.6 See_Comment [Aut omated message] The = Monocytes #) system which generated this result tra nsmitted reference range : <=0.8. The reference r thierry was not used to int erpret this result as normal/abnormal . [facility] [id number] 05:41:00 Test Item Value Reference Range Interpretation Comments Eosinophils # (test code 0.1 See_Comment [A utomated message] The = Eosinophils #) system whic h generated this result tra nsmitted reference range : <=0.5. The reference r thierry was not used to int erpret this result as normal/abnormal . [facility]
--- NOTE | 2022-09-21 16:21 | RAD REPORT ---
EXAM DESCRIPTION: RAD - Knee Left 3 View - 09/21/2022 4:14 pm CLINICAL HISTORY: PAIN COMPARISON: No comparisons FINDINGS: Lateral joint space nflg-wv-oizgcuzo osteoarthritis. No fracture or dislocation. No signif icant joint fluid.
--- NOTE | 2022-09-21 16:26 | RAD REPORT ---
EXAM DESCRIPTION: CT - CTHCSPWOC - 09/21/2022 4:17 pm CLINICAL HISTORY: Trauma, head and neck injury. TRAUMA COMPARISON: No comparisons TECHNIQUE: Axial 5 mm thick images of the head were obtained. Axial 2 mm thick images of the cervical spine were obtained with sagittal and coronal reconstruction images generated and reviewed. All CT scans are performed using dose optimization technique as appropriate and may include automated exposure control or mA/KV adjustment according to patient size. FINDINGS: CT HEAD WITHOUT CONTRAST: No acute hemorrhage, hydrocephalus or extra-axial collection is identified.No areas of brain edema or midline shift. The paranasal sinuses and mastoids are clear.The calvarium is intact. CT CERVICAL SPINE WITHOUT CONTRAST: No fracture or subluxation.Mild lower cervical spondylosis. Mild bilateral facet hypertrophy.No preve rtebral soft tissues swelling is identified. IMPRESSION: No acute intracranial or cervical spine findings.
--- NOTE | 2022-09-21 16:49 | EDPHYS ---
Physician Documentation [facility] Name: Babrra Moore Age: 67 yrs Sex: Female : 1955 Arrival Date: 09/21/2022 Time: 15:33 Bed IW2 Private MD: ED Physician Kevin Walker HPI: 09/21 16:50 This 67 yrs old Female presents to ER via Ambulatory with complaints of Fall Injury, ms3 Dizziness. 16:50 67-year-old female with past medical history of arthritis presents status post fall ms3 from ground-level at 2:15 PM. Patient states she was walking her dog when he jerked causing her to fall. Patient is experiencing left knee pain, posterior scalp hematoma. Patient states she had questionable loss of consciousness, and is experiencing neck pain. Patient denies nausea or vomiting. Patient states her discomfort is a 9/10 and described as throbbing. Patient states her tetanus is up-to-date.. Historical: - Allergies: 15:51 NKA; ld1 - PMHx: 15:51 Arthritis; ld1 - PSHx: 15:51 None; ld1 - Immunization history:: Adult Immunizations up to date, Client reports receiving the 2nd dose of the Covid vaccine. - Social history:: Smoking status: Patient denies any tobacco usage or history of. Patient/guardian denies using alcohol. ROS: 16:50 Constitutional: Negative for fever, and chills. ms3 16:50 Neck: Positive for pain with movement. 16:50 MS/extremity: Positive for pain, of the left leg. 16:50 Skin: Positive for abrasion(s), of the left leg. 16:50 All other systems are negative. Exam: 16:50 Constitutional: This is a well developed, well nourished patient who is awake, alert, ms3 and in no acute distress. 16:50 Head/face: Noted is hematoma, that is moderate, of the left side of the back of head. 16:50 Neck: External neck: tenderness, that is mild, of the left mid cervical area. 16:53 Cardiovascular: Regular rate and rhythm with a normal S1 and S2. No gallops, murmurs, ms3 or rubs. Normal PMI, no JVD. No pulse deficits. Respiratory: Lungs have equal breath sounds bilaterally, clear to auscultation and percussion. No rales, rhonchi or wheezes noted. No increased work of breathing, no retractions or nasal flaring. Abdomen/GI: Soft, non-tender, with normal bowel sounds. No distension or tympany. No guarding or rebound. No evidence of tenderness throughout. 16:53 Neuro: Awake and alert, GCS 15, oriented to person, place, time, and situation. Cranial nerves II-XII grossly intact. Motor strength 5/5 in all extremities. Sensory grossly intact. Cerebellar exam normal. Normal gait. 16:53 Skin: injury, abrasion(s), small abrasion noted, of the left leg. Vital Signs: 15:51 BP 126 / 70; Pulse 75; Resp 18; Temp 98.7(O); Pulse Ox 99% on R/A; Weight 65.77 kg; ld1 Height 5 ft. 3 in. (160.02 cm); Pain 9/10; 15:51 Body Mass Index 25.69 (65.77 kg, 160.02 cm) ld1 MDM: 15:57 Patient medically screened. ms3 16:53 Differential diagnosis: abrasion, closed head injury, contusion, fracture, sprain, ms3 strain. Data reviewed: vital signs, nurses notes, radiologic studies, CT scan, and as a result, I will discharge patient. Independent interpretation of the following test(s) in the Emergency Department CT Scan: My interpretation is My interpretation of CT head images: No ICH.. Counseling: I had a detailed discussion with the patient and/or guardian regarding: the historical points, exam findings, and any diagnostic results supporting the discharge/admit diagnosis, radiology results, the need for outpatient follow up, to return to the emergency department if symptoms worsen or persist or if there are any questions or concerns that arise at home. ED course: Discussed CT scan of head and neck, left knee x-ray with patient. Patient to follow-up with primary care in 2 to 3 days. Patient understands and agrees with plan. All questions were answered. Return precautions discussed include worsening symptoms, or any other concerns. On reevaluation patient remains alert and oriented x4, no apparent distress, nontoxic-appearing, speaking full sentences.. 09/21 15:59 Order name: CT Head C Spine; Complete Time: 16:43 ms3 09/21 15:59 Order name: Knee Left 3 View XRAY; Complete Time: 16:43 ms3 Administered Medications: No medications were administered Disposition Summary: 09/21/22 16:49 Discharge Ordered Location: Home ms3 Condition: Stable ms3 Diagnosis - Scalp Hematoma ms3 - Fall on same level, unspecified ms3 - Pain in left knee ms3 - Neck pain ms3 - Acute post-traumatic headache ms3 Followup: ms3 - With: Vidal Kam DO - When: 2 - 3 days - Reason: Recheck today's complaints Discharge Instructions: - Discharge Summary Sheet ms3 - Musculoskeletal Pain ms3 - Acute Knee Pain, Adult ms3 - General Headache Without Cause, [id number] ms3 Forms: - Medication Reconciliation Form ms3 - Thank You Letter ms3 - Antibiotic Education ms3 - Prescription Opioid Use ms3 Signatures: Dispatcher [employer] Kevin Queen DO DO ms3 Nohemy Thompson RN RN ld1
--- NOTE | 2022-09-21 16:49 | ER ---
Nurse's Notes [facility] Name: Barbra Moore Age: 67 yrs Sex: Female : 1955 Arrival Date: 09/21/2022 Time: 15:33 Bed IW2 Private MD: Diagnosis: Scalp Hematoma;Fall on same level, unspecified;Pain in left knee;Neck pain;Acute post-traumatic headache Presentation: 09/21 15:51 Chief complaint: Patient states: Walking dog in road - tripped and fell, hit head on ld1 concrete. C/O pain to back of head, knot on head \T\ left knee pain. Coronavirus screen: At this time, the client does not indicate any symptoms associated with coronavirus-19. Ebola Screen: No symptoms or risks identified at this time. Initial Sepsis Screen: Does the patient meet any 2 criteria? No. Patient's initial sepsis screen is negative. Does the patient have a suspected source of infection? No. Patient's initial sepsis screen is negative. Risk Assessment: Do you want to hurt yourself or someone else? Patient reports no desire to harm self or others. Onset of symptoms was September 21, 2022. 15:51 Method Of Arrival: Ambulatory ld1 15:51 Acuity: FELECIA 3 ld1 Triage Assessment: 15:51 General: Appears in no apparent distress. comfortable, Behavior is calm, cooperative, ld1 appropriate for age. Pain: Complains of pain in face, scalp and left leg Pain does not radiate. Pain currently is 8 out of 10 on a pain scale. Quality of pain is described as throbbing. EENT: No signs and/or symptoms were reported regarding the EENT system. Neuro: Level of Consciousness is awake, alert, obeys commands, Oriented to person, place, time, situation. Cardiovascular: Capillary refill < 3 seconds Patient's skin is warm and dry. Respiratory: Airway is patent Respiratory effort is even, unlabored. GI: Abdomen is round non-distended. : No signs and/or symptoms were reported regarding the genitourinary system. Derm: No signs and/or symptoms reported regarding the dermatologic system. Musculoskeletal: No signs and/or symptoms reported regarding the musculoskeletal system. Historical: - Allergies: 15:51 NKA; ld1 - PMHx: 15:51 Arthritis; ld1 - PSHx: 15:51 None; ld1 - Immunization history:: Adult Immunizations up to date, Client reports receiving the 2nd dose of the Covid vaccine. - Social history:: Smoking status: Patient denies any tobacco usage or history of. Patient/guardian denies using alcohol. Screenin:[address] [facility] ED Fall Risk Assessment (Adult) History of falling in the last 3 months, ss including since admission No falls in past 3 months (0 pts). [facility] ED Fall Risk Assessment (Adult) History of falling in the last 3 months, including since admission No falls in past 3 months (0 pts). Abuse screen: Denies threats or abuse. Denies injuries from another. Nutritional screening: No deficits noted. Tuberculosis screening: Never had TB. Assessment: 17:00 General: Appears in no apparent distress. comfortable, Behavior is calm, cooperative. ss Neuro: Level of Consciousness is awake, alert, obeys commands. Respiratory: Airway is patent Respiratory effort is even, unlabored, Respiratory pattern is regular, symmetrical. Derm: Skin is intact, is healthy with good turgor, Skin is pink, warm \T\ dry. normal. Vital Signs: 15:51 BP 126 / 70; Pulse 75; Resp 18; Temp 98.7(O); Pulse Ox 99% on R/A; Weight 65.77 kg; ld1 Height 5 ft. 3 in. (160.02 cm); Pain 9/10; 15:51 Body Mass Index 25.69 (65.77 kg, 160.02 cm) ld1 ED Course: 15:33 Patient arrived in ED. as 15:40 Kevin Walker DO is Attending Physician. ms3 15:51 Triage completed. ld1 15:51 Arm band placed on right wrist. ld1 16:16 Knee Left 3 View XRAY In Process Unspecified. EDMS 16:19 CT Head C Spine In Process Unspecified. EDMS 16:47 Vidal Kam DO is Referral Physician. ms3 17:00 Geraldine Araya, KANG is Primary Nurse. ss 17:00 Patient has correct armband on for positive identification. ss 17:00 No provider procedures requiring assistance completed. Patient did not have IV access ss during this emergency room visit. Administered Medications: No medications were administered Medication: 17:00 VIS not applicable for this client. ss Outcome: 16:49 Discharge ordered by MD. ms3 17:00 Discharged to home ambulatory. 17:00 Condition: good 17:00 Discharge instructions given to patient, family, Instructed on discharge instructions, follow up and referral plans. Demonstrated understanding of instructions, follow-up care. 17:02 Patient left the ED. Signatures: Dispatcher [employer] Chayito Klein Shelby, RN RN Kevin Walker DO DO ms3 Nohemy Thompson RN RN ld1
[2022-09-21 17:12] VITALS: BP 126/70; TEMP 98.7; O2SAT 99
== END 2022-09-21 17:02 | disposition home or self-care (01) ==
LOC: ER 15:31
DX: S00.03XA Contusion of scalp, initial encounter (principal); G44.319 Acute post-traumatic headache, not intractable; M54.2 Cervicalgia; M25.562 Pain in left knee; W18.30XA Fall on same level, unspecified, initial encounter
CPT/HCPCS: 70450; 72125

== ENCOUNTER 2023-06-20 10:19 | Emergency (ER) | payer OTHER ==
--- OUTSIDE RECORDS SUMMARY | 2023-06-20 10:27 | XMS REPORT | Continuity of Care Document ---
:[address] [facility] [place], [place] t Address [address] [place] [address] [address] [place] [address] Care Team Providers Name Role Phone Juan [...] 0 15:53:00 l 05/16/2020 00:00: Manoj hilario [facility] 00 [place] FACIAL FACIAL Diagnosis Active 2019-082020-07-02 Me moria LACERATION LACERATION 0- 13:54:00 l , SHOULDER , SHOULDER 00:00: He rmann DISLOCATIO DISLOCATIO 00 N, N, Active 05/16/2020 [facility] SYNCOPE SYNCOPE Diagnosis Active 2020-01-23 Memoria Active 01-22 06:34:00 l 01/23/2020 00:07: Manoj hilario [facility] 00 [place] LACERATION LACERATIO Diagnosis Active 2020-07-02 Memoria W/O N W/O 13:54:00 l FOREIGN FOREIGN [place] BODY OF BODY OF OTH PART OTH PART [facility] UNSP UNSP Diagnosis Active 2020-07-02 Mem oria DISLOCATIO DISLOCATIO 13:54:00 l N OF N OF Ney UNSPECIFIE UNSPECIFIE D SHOULDER D SHOULDER Active [facility] FRACTURE FRACTURE Diagnosis Active 2020-07-02 Memoria OF UNSP OF UNSP 13:54:00 l PART OF PART OF [place] NECK OF NECK OF UNSP FE UNSP FE Active [facility] History of Past Illness Condition Condition Condition Status Onset Resolution Last Treating Co mments Source Name Details Category Date Date Treatment Clinician Date Syncope Syncope Problem 2019-2020-01-25 2020-01-25 Memoria and and 01-22 21:08:12 21:08:12 l collapse collapse 17:00: Manoj n 01/23/2020 00 0 [facility] Cannabis Cannabis Problem 2020-01-25 2020-01-25 Memoria use, use, 01-22 21:08:12 21:08:12 l unspecifie unspecifie 17:00: He lili d, d, 00 uncomplica uncomplica miryam miryam 01/23/2020 0 [facility] Pain in Pain in Problem 2019-2020-01-25 2020-01-25 Memoria unspecifie unspecifie 01-22 21:08:12 21:08:12 l d knee d knee 17:00: Ney 01/23/2020 00 0 [facility] Unspecifie Unspecifi Problem 2019-2020-01-25 2020-01-25 Memoria d ed 01-22 21:08:12 21:08:12 l osteoarthr osteoarthr 17:00: He lili itis, itis, 00 unspecifie unspecifie d site d site 01/23/2020 0 [facility] Allergies, Adverse Reactions, Alerts Allergy Allergy Status Severity Reaction(s) Onset Inactive Treating Comm ents Source Name Type Date Date Clinician No Known DA [facility] [place] [facility] No [facility] [place] [facility] Social History Social Habit Start Date Stop Date Quantity Comments Source Social History 2020-05-17 2020-05-17 [facility] delmi 02:24:18 02:24:18 Medications Ordered Filled Start [...] Duration: 30 day, Stop date: 06/17/20 9:00:00 LIMB DRIVER Aspirin 325 2019-08 No 325 mg, 1 M emoria MG Enteric 0-04 tab, l Coated 22:00: Route: PO, Roberta nn Tablet 00 BID, Dosing Weight 64.636, kg, Start date: 05/18/20 17:00:00 CDT, Duration: 30 day, Stop date: 06/17/20 9:00:00 LIMB DRIVER Aspirin 325 2019-08 No 325 mg, 1 M emoria MG Enteric 0-04 tab, l Coated 22:00: Route: PO, Roberta nn Tablet 00 BID, Dosing Weight 64.636, kg, Start date: 05/18/20 17:00:00 CDT, Duration: 30 day, Stop date: 06/17/20 9:00:00 LIMB DRIVER celecoxib 2019-08 Yes 200 mg = 1 [...] tab, PO, l tablet 15:31: Q8H, PRN [place] 00 Spasm, # 20 tab, 0 Refill(s) [...] e 0-04 Tablet l 14:00: should not [place] 00 be chewed or crushed. (Same as: Protonix) Docusate 2019-08 No Notes: Memoria Sodium 50 0-04 (Same as l MG / 14:00: Senokot-S) [place] sennosides, 00 Equiv. to SKILLED NURSING 8.6 MG Tali-Colac Oral Tablet e. POLYETHYLEN 2019-08 No Notes: Pan shantal E GLYCOL 0-04 Dissolve l 3350 14:00: in 8 oz of Ney 00 water or juice. (Same as: Miralax) Celebrex 2019-08 No Notes: Memoria 0-04 NSAID. l 14:00: Please Ney 00 check indication . Not for seizure. (Same As: CeleBREX) Vitamin D3 2019-08 No Notes: Memor ia 1000 intl 0-04 Same as : l units oral 14:00: Vitamin D3 H ermann tablet 00 pantoprazol 2019-08 No Notes: Pan shantal e 0-04 Tablet l 14:00: should not [place] 00 be chewed or crushed. (Same as: Protonix) Docusate 2019-08 No Notes: Memoria Sodium 50 0-04 (Same as l MG / 14:00: Senokot-S) [place] sennosides, 00 Equiv. to SKILLED NURSING 8.6 MG Tali-Colac Oral Tablet e. POLYETHYLEN 2019-08 No Notes: Pan shantal E GLYCOL 0-04 Dissolve l 3350 14:00: in 8 oz of Ney 00 water or juice. (Same as: Miralax) Celebrex 2019-08 No Notes: Memoria 0-04 NSAID. l 14:00: Please [place] 00 check indication . Not for seizure. [...] (Same as l MG / 14:00: Senokot-S) [place] sennosides, 00 Equiv. to SKILLED NURSING 8.6 MG Tali-Colac Oral Tablet e. POLYETHYLEN 2019-08 No Notes: Pan shantal E GLYCOL 0-04 Dissolve l 3350 14:00: in 8 oz of [place] 00 water or juice. (Same as: Miralax) Celebrex 2019-08 No Notes: Memoria 0-04 NSAID. l 14:00: Please Ney 00 check indication . Not for seizure. (Same As: CeleBREX) Enoxaparin 2019-08 No Notes: Memor ia 0-04 (Same as: l 13:00: Lovenox) Ney 00 Aspirin 81 2019-08 No Notes: Do Me moria MG Enteric 0-04 not crush l Coated 13:00: or chew. Ney Tablet 00 (Same As: Ecotrin) Enoxaparin 2019-08 No Notes: Memor ia 0-04 (Same as: l 13:00: Lovenox) Ney 00 Aspirin 81 2019-08 No Notes: Do Me moria MG Enteric 0-04 not crush l Coated 13:00: or chew. Ney Tablet 00 (Same As: Ecotrin) Enoxaparin 2019-08 No Notes: Memor ia 0-04 (Same as: l 13:00: Lovenox) [place] 00 Aspirin 81 2019-08 No Notes: Do Me moria MG Enteric 0-04 not crush l Coated 13:00: or chew. Ney Tablet 00 (Same As: Ecotrin) Ketotifen 2019-08 No Notes: Memori a 0.25 MG/ML 0-04 (Same l Ophthalmic 05:00: as:Zaditor H ermann Solution 00 ) Cefazolin 2019-08 No Notes: Memori a 0-04 (Same As: l 05:00: Ancef, Ney 00 Kefzol) MEDICATION WASTE Product Size: 1000 mg Product Wasted: ___ mg Lyrica 2019-08 No Notes: Memoria 0-04 Same as l 05:00: Lyrica [place] Ketotifen 2019-08 No Notes: Memori a 0.25 MG/ML 0-04 (Same l Ophthalmic 05:00: as:Zaditor H ermann Solution 00 ) Cefazolin 2019-08 No Notes: Memori a 0-04 (Same As: l 05:00: Ancef, Ney 00 Kefzol) MEDICATION WASTE Product Size: 1000 mg Product Wasted: ___ mg Lyrica 2019-08 No Notes: Memoria 0-04 Same as l 05:00: Lyrica [place] 00 Ketotifen 2019-08 No Notes: Memori a 0.25 MG/ML 0-04 (Same l Ophthalmic 05:00: as:Zaditor H ermann Solution 00 ) Cefazolin 2019-08 No Notes: Memori a 0-04 (Same As: l 05:00: Ancef, Ney 00 Kefzol) MEDICATION WASTE Product Size: 1000 mg Product Wasted: ___ mg Lyrica 2019-08 No Notes: Memoria 0-04 Same as l 05:00: Lyrica [place] 00 Calcium 2019-08 No 500 mL, Memoria Chloride 0-04 500 ml/hr, l 0.0014 03:30: Infuse [place] MEQ/ML / 00 Over: 1 Potassium hr, Route: Chloride IV, 500, 0.004 Drug form: MEQ/ML / INJ, ONCE, Sodium Priority: Chloride STAT, 0.103 Dosing MEQ/ML / Weight Sodium 64.636 kg, Lactate Start 0.028 date: MEQ/ML 05/17/20 Injectable 22:30:00 Solution CDT, Stop date: 05/17/20 22:30:00 CDT, 0 Calcium 2020-1 No 500 mL, Memoria Chloride 0-04 500 ml/hr, l 0.0014 03:30: Infuse [place] MEQ/ML / 00 Over: 1 Potassium hr, Route: Chloride IV, 500, 0.004 Drug form: MEQ/ML / INJ, ONCE, Sodium Priority: Chloride STAT, 0.103 Dosing MEQ/ML / Weight Sodium 64.636 kg, Lactate Start 0.028 date: MEQ/ML 05/17/20 Injectable 22:30:00 Solution CDT, Stop date: 05/17/20 22:30:00 CDT, 0 Calcium 2020-1 No 500 mL, Memoria Chloride 0-04 500 ml/hr, l 0.0014 03:30: Infuse [place] MEQ/ML / 00 Over: 1 Potassium hr, Route: Chloride IV, 500, 0.004 Drug form: MEQ/ML / INJ, ONCE, Sodium Priority: Chloride STAT, 0.103 Dosing MEQ/ML / Weight Sodium 64.636 kg, Lactate Start 0.028 date: MEQ/ML 05/17/20 Injectable 22:30:00 Solution CDT, Stop date: 05/17/20 22:30:00 CDT, 0 Hydralazine 2020-1 No 10 mg, Pan shantal 0-04 Route: l 00:15: IVP, Ney 00 Q20Min, Dosing Weight 64.636, kg, PRN Elevated BP, Start date: 05/17/20 19:15:00 CDT, Duration: 2 doses or times, Stop date: Limited # of times Acetaminoph 2020-1 No 1,000 mg, M emoria en 0-04 Route: l 00:15: IVPB, Drug [place] 00 form: INJ, ONCE, Dosing Weight 64.636, kg, PRN Pain Score 1-3, Start date: 05/17/20 19:15:00 CDT Oxycodone 2020-1 No 5 mg, Memoria Hydrochlori 0-04 Route: PO, l de 5 MG 00:15: Drug form: Herm zehra Oral Tablet 00 TAB, Q4H, Dosing Weight 64.636, kg, PRN Pain Score 4-6, Start date: 05/17/20 19:15:00 CDT, Duration: 30 day, Stop date: 06/16/20 19:14:00 LIMB DRIVER Hydralazine 2019- No 10 mg, Pan shantal 0-04 Route: l 00:15: IVP, Ney 00 Q20Min, Dosing Weight 64.636, kg, PRN Elevated BP, Start date: 05/17/20 19:15:00 CDT, Duration: 2 doses or times, Stop date: Limited # of times Acetaminoph 2019- No 1,000 mg, M emoria en 0-04 Route: l 00:15: IVPB, Drug [place] 00 form: INJ, ONCE, Dosing Weight 64.636, kg, PRN Pain Score 1-3, Start date: 05/17/20 19:15:00 CDT Oxycodone 2019- No 5 mg, Memoria Hydrochlori 0-04 Route: PO, l de 5 MG 00:15: Drug form: Herm zehra Oral Tablet 00 TAB, Q4H, Dosing Weight 64.636, kg, PRN Pain Score 4-6, Start date: 05/17/20 19:15:00 CDT, Duration: 30 day, Stop date: 06/16/20 19:14:00 LIMB DRIVER Fentanyl 2019- No 25 Memoria 0-04 microgram, l 00:15: Route: [place] 00 IVP, Q5Min, Dosing Weight 64.636, kg, PRN Pain Score 4-6, Priority: Routine, Start date: 05/17/20 19:15:00 CDT, Duration: 4 doses or times, Stop date: Limited # of times Hydromorpho 2019- No 0.5 mg, Mem oria ne 0-04 Route: l 00:15: IVP, [place] 00 Q5Min, Dosing Weight 64.636, kg, PRN Pain Score 7-10, Start date: 05/17/20 19:15:00 CDT, Duration: 4 doses or times, Stop date: Limited # of times Flumazenil 2019- No 0.2 mg, Pan shantal 0-04 Route: l 00:15: IVP, PRN, [place] 00 Dosing Weight 64.636, kg, PRN Benzodiaze pine Reversal, Initial dose, Start date: 05/17/20 19:15:00 CDT, Duration: 30 day, Stop date: 06/16/20 18:14:00 LIMB DRIVER Fentanyl 2019- No 25 Memoria 0-04 microgram, l 00:15: Route: Ney 00 IVP, Q5Min, Dosing Weight 64.636, kg, PRN Pain Score 4-6, Priority: Routine, Start date: 05/17/20 19:15:00 CDT, Duration: 4 doses or times, Stop date: Limited # of times Naloxone 2019-08 No 0.4 mg, Memori a 0-04 Route: l 00:15: IVP, Ney 00 Q2MIN, Dosing Weight 64.636, kg, PRN Narcotic Reversal, Start date: 05/17/20 19:15:00 CDT, Duration: 8 doses or times, Stop date: Limited # of times Albuterol 2019-08 No 2.49 mg, Pan shantal 0.83 MG/ML 0-04 Route: l Inhalant 00:15: NEB, [place] Solution 00 Q20Min, Dosing Weight 64.636, kg, PRN Wheezing, Priority: STAT, Start date: 05/17/20 19:15:00 CDT, Duration: 30 day, Stop date: 06/16/20 18:14:00 LIMB DRIVER Diphenhydra 2019-08 No 12.5 mg, Me moria mine 0-04 Route: l 00:15: IVP, Drug [place] 00 form: INJ, Q6H, Dosing Weight 64.636, kg, PRN Itching, Start date: 05/17/20 19:15:00 CDT, Duration: 30 day, Stop date: 06/16/20 19:14:00 LIMB DRIVER Meperidine 2019-08 No 12.5 mg, Mem oria [...] moria e 0-04 Route: l 00:15: IVPB, [place] 00 ONCE, Dosing Weight 64.636, kg, PRN Nausea & Vomiting, Start date: 05/17/20 19:15:00 CDT 72 HR 2019-08 No 1 patch, Memoria Scopolamine 0-04 Route: l 0.0139 00:15: TOP, Drug Manoj n MG/HR 00 Form: Transdermal ERFILM, Patch Dosing Weight 64.636, kg, ONCE, Apply behind ear. Avoid use in elderly., Start date: 05/17/20 19:15:00 CDT, Stop date: 05/17/20 19:15:00 CDT Hydromorpho 2019-08 No 0.5 mg, Mem oria ne 0-04 Route: l 00:15: IVP, [place] 00 Q5Min, Dosing Weight 64.636, kg, PRN Pain Score 7-10, Start date: 05/17/20 19:15:00 CDT, Duration: 4 doses or times, Stop date: Limited # of times Flumazenil 2019-08 No 0.2 mg, Pan shantal 0-04 Route: l 00:15: IVP, PRN, [place] 00 Dosing Weight 64.636, kg, PRN Benzodiaze pine Reversal, Initial dose, Start date: 05/17/20 19:15:00 CDT, Duration: 30 day, Stop date: 06/16/20 18:14:00 LIMB DRIVER Naloxone 2019-08 No 0.4 mg, Memori a 0-04 Route: l 00:15: IVP, Ney 00 Q2MIN, Dosing Weight 64.636, kg, PRN Narcotic Reversal, Start date: 05/17/20 19:15:00 CDT, Duration: 8 doses or times, Stop date: Limited # of times Albuterol 2019-08 No 2.49 mg, Pan shantal 0.83 MG/ML 0-04 Route: l Inhalant 00:15: NEB, [place] Solution 00 Q20Min, Dosing Weight 64.636, kg, PRN Wheezing, Priority: STAT, Start date: 05/17/20 19:15:00 CDT, Duration: 30 day, Stop date: 06/16/20 18:14:00 LIMB DRIVER Diphenhydra 2019-08 No 12.5 mg, Me moria mine 0-04 Route: l 00:15: IVP, Drug [place] 00 form: INJ, Q6H, Dosing Weight 64.636, kg, PRN Itching, Start date: 05/17/20 19:15:00 CDT, Duration: 30 day, Stop date: 06/16/20 19:14:00 LIMB DRIVER Meperidine 2019-08 No 12.5 mg, Mem oria 0-04 Route: l 00:15: IVP, [place] 00 Q30Min, Dosing Weight 64.636, kg, PRN [...] moria e 0-04 Route: l 00:15: IVPB, [place] 00 ONCE, Dosing Weight 64.636, kg, PRN [...] times Acetaminoph 2019-08 No 1,000 mg, M washington en 0-04 Route: l 00:15: IVPB, Drug [place] 00 form: INJ, ONCE, Dosing Weight 64.636, kg, PRN Pain Score 1-3, Start date: 05/17/20 19:15:00 CDT Oxycodone 2019-08 No 5 mg, Memoria Hydrochlori 0-04 Route: PO, l de 5 MG 00:15: Drug form: Herm zehra Oral Tablet 00 TAB, Q4H, Dosing Weight 64.636, kg, PRN Pain Score 4-6, Start date: 05/17/20 19:15:00 CDT, Duration: 30 day, Stop date: 06/16/20 19:14:00 LIMB DRIVER Fentanyl 2019-08 No 25 Memoria 0-04 microgram, l 00:15: Route: [place] 00 IVP, Q5Min, Dosing Weight 64.636, kg, [...] shantal 0-04 Route: l 00:15: IVP, PRN, Ney 00 Dosing Weight 64.636, kg, PRN Benzodiaze pine Reversal, Initial dose, Start date: 05/17/20 19:15:00 CDT, Duration: 30 day, Stop date: 06/16/20 18:14:00 LIMB DRIVER Naloxone 2019-08 No 0.4 mg, Memori a [...] Duration: 30 day, Stop date: 06/16/20 18:14:00 LIMB DRIVER Diphenhydra 2019-08 No 12.5 mg, Me moria mine 0-04 Route: l 00:15: IVP, Drug N[place] 00 form: INJ, Q6H, Dosing Weight 64.636, kg, PRN Itching, Start date: 05/17/20 19:15:00 CDT, Duration: 30 day, Stop date: 06/16/20 19:14:00 LIMB DRIVER Meperidine 2019-08 No 12.5 mg, Mem oria 0-04 Route: l 00:15: IVP, Ney 00 Q30Min, Dosing Weight 64.636, kg, PRN Other -See Comment, For shivering, Start date: 05/17/20 19:15:00 CDT, Duration: 2 doses or times, Stop date: Limited # of times Ondansetron 2019-08 No 4 mg, Memor ia 0-04 Route: l 00:15: IVP, ONCE, [place] 00 Dosing Weight 64.636, kg, PRN Nausea & Vomiting, Start date: 05/17/20 19:15:00 CDT Promethazin 2019-08 No 6.25 mg, Me moria e 0-04 Route: l 00:15: IVPB, [place] 00 ONCE, Dosing Weight 64.636, kg, PRN Nausea & Vomiting, Start date: 05/17/20 19:15:00 CDT 72 HR 2019-08 No 1 patch, Memoria Scopolamine 0-04 Route: l 0.0139 00:15: TOP, Drug Manoj n MG/HR 00 Form: Transdermal ERFILM, Patch Dosing Weight 64.636, kg, ONCE, Apply behind ear. Avoid use in elderly., Start date: 05/17/20 19:15:00 CDT, Stop date: 05/17/20 19:15:00 CDT Vancomycin 2019- No 2000 mg: Me moria 0-04 infuse l 00:00: over 2.5 [place] 00 hours For adult patients only: Round to nearest 250 mg per Medical Staff approval MEDICATION WASTE Product Size: 1000 mg Product Wasted: ___ mg Vancomycin 2019- No 2000 mg: Me moria 0-04 infuse l 00:00: over 2.5 Ney 00 hours For adult patients only: Round to nearest 250 mg per Medical Staff approval MEDICATION WASTE Product Size: 1000 mg Product Wasted: ___ mg Vancomycin 2019- No 2000 mg: Me moria 0-04 infuse l 00:00: over 2.5 [place] 00 hours For adult patients only: Round [...] Duration: 30 day, Stop date: 06/16/20 18:22:00 LIMB DRIVER, 1.71, m2, 0 Milk of 2019-08 No Notes: Memoria Magnesia 0-03 (Same as: l 23:23: Milk of Magnesia, MOM) Morphine 2019-08 No 2 mg, 1 Memori a 0-03 mL, Route: l 23:23: IVP, Drug form: SOLN, Q3H, Dosing Weight 64.636, kg, PRN Pain Score 7-10, If not responding to oral therapy or unable to tolerate PO., Start date: 05/17/20 18:23:00 CDT, Duration: 30 day, Stop date: 06/16/20 18:22:00 LIMB DRIVER, 0 Ondansetron 2019-08 No Notes: Pan shantal [...] / 0-03 Same as l Hydrocodone 23:23: [place] Roberta nn Bitartrate 00 325-7.5mg 7.5 MG Oral Do not Tablet exceed [[place] 4gm/day of 7.5/325] acetaminop hen. Lactated 2019-08 No 1,000 mL, Pan shantal Ringers IV 0-03 Rate: 75 l 1,000 mL 23:23: ml/hr, Infuse over: 13.3 hr, Route: IV, Dosing Weight 64.636 kg, Total Volume: 1,000, Start date: 05/17/20 18:23:00 CDT, Duration: 30 day, Stop date: 06/16/20 18:22:00 LIMB DRIVER, 1.71, m2, 0 Milk of 2019-08 No Notes: Memoria Magnesia 0-03 (Same as: l 23:23: Milk of Magnesia, MOM) Morphine 2019-08 No 2 mg, 1 Memori a 0-03 mL, Route: l 23:23: IVP, Drug form: SOLN, Q3H, Dosing Weight 64.636, kg, PRN Pain Score 7-10, If not responding to oral therapy or unable to tolerate PO., Start date: 05/17/20 18:23:00 CDT, Duration: 30 day, Stop date: 06/16/20 18:22:00 LIMB DRIVER, 0 Ondansetron 2019-08 No Notes: Pan shantal [...] / 0-03 Same as l Hydrocodone 23:23: [place] Roberta nn Bitartrate 00 325-7.5mg 7.5 MG Oral Do not Tablet exceed [[place] 4gm/day of 7.5/325] acetaminop hen. Lactated 2019-08 No 1,000 mL, Pan shantal Ringers IV 0-03 Rate: 75 l 1,000 mL 23:23: ml/hr, Infuse over: 13.3 hr, Route: IV, Dosing Weight 64.636 kg, Total Volume: 1,000, Start date: 05/17/20 18:23:00 CDT, Duration: 30 day, Stop date: 06/16/20 18:22:00 LIMB DRIVER, 1.71, m2, 0 Milk of 2019-08 No Notes: Memoria Magnesia 0-03 (Same as: l 23:23: Milk of Magnesia, MOM) Morphine 2019-08 No 2 mg, 1 Memori a 0-03 mL, Route: l 23:23: IVP, Drug form: SOLN, Q3H, Dosing Weight 64.636, kg, PRN Pain Score 7-10, If not responding to oral therapy or unable to tolerate PO., Start date: 05/17/20 18:23:00 CDT, Duration: 30 day, Stop date: 06/16/20 18:22:00 LIMB DRIVER, 0 Ondansetron 2019-08 No Notes: Pan shantal [...] / 0-03 Same as l Hydrocodone 23:23: [place] Roberta nn Bitartrate 00 325-7.5mg 7.5 MG Oral Do not Tablet exceed [[place] 4gm/day of 7.5/325] acetaminop hen. dexamethaso 2019-08 No Route: IV, Memoria ne (ANES) 0-03 Drug form: l 23:04: INJ, ONCE, [place] 00 Stop date: 05/17/20 18:04:00 CDT ondansetron 2019-08 [...] 0-03 Drug form: l 21:08: INJ, ONCE, Ney 00 Stop date: 05/17/20 16:08:00 CDT fentaNYL 2020- No Route: IV, Mem oria (ANES) 0-03 Drug form: l 21:08: INJ, ONCE, [place] 00 Stop date: 05/17/20 16:08:00 CDT propofol 2019-08 No Route: IV, Mem oria (ANES) 0-03 Drug form: l 21:08: INJ, ONCE, Stop date: 05/17/20 16:08:00 CDT rocuronium 2020- No Route: IV, M emoria (ANES) 0-03 [...] ONCE, Stop date: 05/17/20 16:08:00 CDT rocuronium 2019- No Route: IV, M emoria (ANES) 0-03 Drug form: l 21:08: INJ, ONCE, Stop date: 05/17/20 16:08:00 CDT midazolam 2020- No Route: IV, Me moria (ANES) 0-03 Drug form: l 21:08: SOLN, Ney ONCE, Stop date: 05/17/20 16:08:00 CDT lidocaine 2020- No Route: IV, Me moria (ANES) 0-03 [...] 16:20:00 CDT vancomycin 2019-08 No Route: IV, Boubacar wintersa (ANES) 1000 0-03 Drug form: l mg 20:20: INJ, Start date: 05/17/20 15:20:00 CDT, Stop date: 05/17/20 16:20:00 CDT vancomycin 2019-08 No Route: IV, Boubacar wintersa (ANES) 1000 0-03 Drug form: l mg [...] (1 mL) Normal Saline 48.45 mL Cefazolin 2020- No Notes: Memori a 0-03 (Same As: l 20:00: Ancef, Ney 00 Kefzol) MEDICATION WASTE Product Size: 1000 mg Product Wasted: ___ mg Vancomycin 2019- No 2000 mg: Me moria 0-03 infuse l 20:00: over 2.5 Ney 00 hours For adult patients only: Round to nearest 250 mg per Medical Staff approval MEDICATION WASTE Product Size: 1000 mg Product Wasted: ___ mg Tranexamic 2020 No Notes: Memor ia Acid 0-03 (Same As: l 20:00: Cyklokapro [place] 00 n) ropivacaine 2019-08 No Notes: Memoria 0-03 NOT FOR IV l 20:00: use Ney 00 Ropivacain e 5 mg/mL (49.25 mL) Epinephrin e 1 mg/mL (0.5 mL) Clonidine 0.1 mg/mL (0.8 mL) Ketorolac 30 mg/mL (1 mL) Normal Saline 48.45 mL Cefazolin 2019-08 No Notes: Memori a 0-03 (Same As: l 20:00: Ancef, Kefzol) MEDICATION WASTE Product Size: 1000 mg Product Wasted: ___ mg Vancomycin 2019- No 2000 mg: Me moria 0-03 infuse l 20:00: over 2.5 [place] 00 hours For adult patients only: Round to nearest 250 mg per Medical Staff approval MEDICATION WASTE Product Size: 1000 mg Product Wasted: ___ mg Tranexamic 2020- No Notes: Memor ia Acid 0-03 (Same As: l 20:00: Cyklokapro Ney 00 n) ropivacaine 2019-08 No Notes: Memoria 0-03 NOT FOR IV l 20:00: use [place] 00 Ropivacain e 5 mg/mL (49.25 mL) Epinephrin e 1 mg/mL (0.5 mL) Clonidine 0.1 mg/mL (0.8 mL) Ketorolac 30 mg/mL (1 mL) Normal Saline 48.45 mL Cefazolin 2019-08 No Notes: Memori a 0-03 (Same As: l 20:00: Ancef, [place] 00 Kefzol) MEDICATION WASTE Product Size: 1000 mg Product Wasted: ___ mg Vancomycin 2019- No 2000 mg: Me moria 0-03 infuse l 20:00: over 2.5 Ney 00 hours For adult patients only: Round to nearest 250 mg per Medical Staff approval MEDICATION WASTE Product Size: 1000 mg Product Wasted: ___ mg celecoxib 2019-08 Yes Notes: Memori a 0-03 NSAID. l 19:39: Please Ney 00 check indication . Not for seizure. (Same As: CeleBREX) Lactated 2019-08 No 1,000 mL, Pan shantal Ringers IV 0-03 Rate: 100 l 1,000 mL 19:39: ml/hr, [place] 00 Infuse over: 10 hr, Route: IV, Dosing Weight 64.636 kg, Total Volume: 1,000, Start date: 05/17/20 14:39:00 CDT, Duration: 30 day, Stop date: 06/16/20 14:38:00 LIMB DRIVER, 1.71, m2, 0 Acetaminoph 2019-08 Yes Notes: Max Memoria en 0-03 acetaminop l 19:39: hen 4000 [place] 00 mg/day (4 gm/day). (Same as: Tylenol Extra Strength) Famotidine 2019-08 Yes Notes: Memor ia 20 MG Oral 0-03 (Same as: l Tablet 19:39: Pepcid) [place] 00 Calcium 2019-08 Yes 1,000 mL, Memor ia Chloride 0-03 1,000 l 0.0014 19:39: ml/hr, Ney MEQ/ML / 00 Infuse Potassium Over: 1 Chloride hr, Route: 0.004 IV, 1,000, MEQ/ML / Drug form: Sodium INJ, ONCE, Chloride Priority: 0.103 STAT, MEQ/ML / Dosing Sodium Weight Lactate 64.636 kg, 0.028 Start MEQ/ML date: Injectable 05/17/20 Solution 14:39:00 CDT, Stop date: 05/17/20 14:39:00 CDT, 0 celecoxib 2019-08 Yes Notes: Memori a 0-03 NSAID. l 19:39: Please Ney 00 check indication . Not for seizure. (Same As: CeleBREX) Lactated 2019-08 No 1,000 mL, Pan shantal Ringers IV 0-03 Rate: 100 l 1,000 mL 19:39: ml/hr, [place] 00 Infuse over: 10 hr, Route: IV, Dosing Weight 64.636 kg, Total Volume: 1,000, Start date: 05/17/20 14:39:00 CDT, Duration: 30 day, Stop date: 06/16/20 14:38:00 LIMB DRIVER, 1.71, m2, 0 Acetaminoph 2019-08 Yes Notes: Max Memoria en 0-03 acetaminop l 19:39: hen 4000 Ney 00 mg/day (4 gm/day). (Same as: Tylenol Extra Strength) Famotidine 2019-08 Yes Notes: Memor ia 20 MG Oral 0-03 (Same as: l Tablet 19:39: Pepcid) [place] 00 Calcium 2019-08 Yes 1,000 mL, Memor ia Chloride 0-03 1,000 l 0.0014 19:39: ml/hr, [place] MEQ/ML / 00 Infuse Potassium Over: 1 Chloride hr, Route: 0.004 IV, 1,000, MEQ/ML / Drug form: Sodium INJ, ONCE, Chloride Priority: 0.103 STAT, MEQ/ML / Dosing Sodium Weight Lactate 64.636 kg, 0.028 Start MEQ/ML date: Injectable 05/17/20 Solution 14:39:00 CDT, Stop date: 05/17/20 14:39:00 CDT, 0 celecoxib 2019-08 Yes Notes: Memori a 0-03 NSAID. l 19:39: Please [place] 00 check indication . Not for seizure. (Same As: CeleBREX) Lactated 2019-08 No 1,000 mL, Pan shantal Ringers IV 0-03 Rate: 100 l 1,000 mL 19:39: ml/hr, [place] 00 Infuse over: 10 hr, Route: IV, Dosing Weight 64.636 kg, Total Volume: 1,000, Start date: 05/17/20 14:39:00 CDT, Duration: 30 day, Stop date: 06/16/20 14:38:00 LIMB DRIVER, 1.71, m2, 0 Acetaminoph 2019-08 Yes Notes: Max Memoria en 0-03 acetaminop l 19:39: hen 4000 [place] 00 mg/day (4 gm/day). (Same as: Tylenol Extra Strength) Famotidine 2019-08 Yes Notes: Memor ia 20 MG Oral 0-03 (Same as: l Tablet 19:39: Pepcid) Ney 00 Calcium 2019-08 Yes 1,000 mL, Memor ia Chloride 0-03 1,000 l 0.0014 19:39: ml/hr, Ney MEQ/ML / 00 Infuse Potassium Over: 1 Chloride hr, Route: 0.004 IV, 1,000, MEQ/ML / Drug form: Sodium INJ, ONCE, Chloride Priority: 0.103 STAT, MEQ/ML / Dosing Sodium Weight Lactate 64.636 kg, 0.028 Start MEQ/ML date: Injectable 05/17/20 Solution 14:39:00 CDT, Stop date: 05/17/20 14:39:00 CDT, 0 Enoxaparin 2019-08 No 40 mg, Memor ia 0-03 Route: l 11:25: SUB-Q, [place] 00 Drug form: INJ, [id number], Dosing Weight 68.182, kg, Start date: 05/17/20 6:25:00 CDT, Duration: 30 day, Stop date: 06/15/20 6:25:00 LIMB DRIVER Enoxaparin 2019- No 40 mg, Memor ia 0-03 Route: l 11:25: SUB-Q, Ney Drug form: INJ, [id number], Dosing Weight 68.182, kg, Start date: 05/17/20 6:25:00 CDT, Duration: 30 day, Stop date: 06/15/20 6:25:00 LIMB DRIVER Enoxaparin 2019- No 40 mg, Memor ia 0-03 Route: l 11:25: SUB-Q, Ney 00 Drug form: INJ, [id number], Dosing Weight 68.182, kg, Start date: 05/17/20 6:25:00 CDT, Duration: 30 day, Stop date: 06/15/20 6:25:00 LIMB DRIVER HWA 2019-08 No Suhas SENIOR Memoria 0-03 pls l 03:00: complete Ney HWA for order verificati , Drug form: MISC, Route: ADANCGELY, 05/16/20 22:00:00 CDT, Duration: 30 day, Stop date: 06/15/20 20:59:00 LIMB DRIVER, 0 HWA 2019-08 No Suhas SENIOR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 Test Item Value Reference Range Interpretation Comments Creatinine Lvl (test code = Creatinine 0.76 0.50-1.40 Lvl) [facility]2020-10-04 09:57:00 Test Item Value Reference Range Interpretation Comments Sodium Lvl (test code = Sodium Lvl) 138 135-145 [facility]2020-10-04 09:57:00 Test Item Value Reference Range Interpretation Comments Potassium Lvl (test code = Potassium 4.4 3.5-5.1 Lvl) [facility]2020-10-04 09:57:00 Test Item Value Reference Range Interpretation Comments Chloride Lvl (test code = Chloride Lvl) 106 95-109 [facility]2020-10-04 09:57:00 Test Item Value Reference Range Interpretation Comments CO2 (test code = CO2) 22 24-32 [facility]2020-10-04 09:57:00 Test Item Value Reference Range Interpretation Comments Calcium Lvl (test code = Calcium Lvl) 8.3 8.5-10.[address] [facility] WRTBF0798-99-38 09:57:00 Test Item Value Reference Range Interpretation Comments AGAP (test code = AGAP) 14.4 10.0-20.[address] [facility] TPFJV9219-42-94 09:57:00 Test Item Value Reference Range Interpretation Comments eGFR (test code = eGFR) 82 [facility] TempleSbczmlhGXGRHKTPVJ6125-17-15 09:57:00 Test Item Value Reference Range Interpretation Comments WBC (test code = WBC) 11.5 3.7-10.4 [facility] TempleCnjbgcpTUMLKJEBKF9586-51-03 09:57:00 Test Item Value Reference Range Interpretation Comments RBC (test code = RBC) 3.08 4.20-5.40 [facility] TempleWmxmnhkNVHYDIEUES0927-10-37 09:57:00 Test Item Value Reference Range Interpretation Comments Hgb (test code = Hgb) 9.8 12.0-16.0 [facility] TempleJachtpgNINAPRGTSW6026-88-01 09:57:00 Test Item Value Reference Range Interpretation Comments Hct (test code = Hct) 29.5 36.0-48.0 [facility] TempleIomzkflULGQUOZHBW4904-46-57 09:57:00 Test Item Value Reference Range Interpretation Comments MCV (test code = MCV) 95.6 80.0-98.0 [facility] TemplePosjzprHQNFBMZUYI4523-30-16 09:57:00 Test Item Value Reference Range Interpretation Comments MCH (test code = MCH) 31.8 pg 27.0-31.0 [facility] TempleCksckpkKJTEXJTKWV0875-32-10 09:57:00 Test Item Value Reference Range Interpretation Comments MCHC (test code = MCHC) 33.3 32.0-36.0 [facility] TempleLxebmirXRSDATJSZI2295-55-70 09:57:00 Test Item Value Reference Range Interpretation Comments RDW (test code = RDW) 13.3 11.5-14.5 [facility] TempleVdxzegbOFEQKLMYGG2791-22-15 09:57:00 Test Item Value Reference Range Interpretation Comments Platelet (test code = Platelet) 156 133-450 [facility] TempleJyzwphgTHSNIAYVSZ8824-22-25 09:57:00 Test Item Value Reference Range Interpretation Comments MPV (test code = MPV) 8.3 7.4-10.4 [place] [address]-10-04 09:57:00 Test Item Value Reference Range Interpretation Comments Segs (test code = Segs) 86.2 45.0-75.0 [place] [address]-10-04 09:57:00 Test Item Value Reference Range Interpretation Comments Lymphocytes (test code = Lymphocytes) 7.4 20.0-40.0 [place] [address]-10-04 09:57:00 Test Item Value Reference Range Interpretation Comments Monocytes (test code = Monocytes) 6.3 2.0-12.0 [address]10-04 09:57:00 Test Item Value Reference Range Interpretation Comments Basophils (test code = 0.1 See_Comment [Aut omated message] The Basophils) system which ge nerated this result tra nsmitted reference range : <=1.0. The reference r thierry was not used to int erpret this result as normal/abnormal . [place] 881660-10-04 09:57:00 Test Item Value Reference Range Interpretation Comments Neutrophils # (test code = Neutrophils 9.9 1.5-8.1 #) [place] [address]-10-04 09:57:00 Test Item Value Reference Range Interpretation Comments Lymphocytes # (test code = Lymphocytes 0.8 1.0-5.5 #) [place] [address]-10-04 09:57:00 Test Item Value Reference Range Interpretation Comments Monocytes # (test code 0.7 See_Comment [Aut omated message] The = Monocytes #) system which generated this result tra nsmitted reference range : <=0.8. The reference r thierry was not used to int erpret this result as normal/abnormal . [place] 204890-10-04 09:57:00 Test Item Value Reference Range Interpretation Comments Glucose Lvl (test code = Glucose Lvl) 98 70-99 [place] 204890-10-04 09:57:00 Test Item Value Reference Range Interpretation Comments BUN (test code = BUN) 17 7-22 [place] [address]-10-04 09:57:00 Test Item Value Reference Range Interpretation Comments Creatinine Lvl (test code = Creatinine 0.76 0.50-1.40 Lvl) [place] 204890-10-04 09:57:00 Test Item Value Reference Range Interpretation Comments Sodium Lvl (test code = Sodium Lvl) 138 135-145 [facility]2020-10-04 09:57:00 Test Item Value Reference Range Interpretation Comments Potassium Lvl (test code = Potassium 4.4 3.5-5.1 Lvl) [facility]2020-10-04 09:57:00 Test Item Value Reference Range Interpretation Comments Chloride Lvl (test code = Chloride Lvl) 106 95-109 [place] 204890-10-04 09:57:00 Test Item Value Reference Range Interpretation Comments CO2 (test code = CO2) 22 24-32 [place] 204890-10-04 09:57:00 Test Item Value Reference Range Interpretation Comments Calcium Lvl (test code = Calcium Lvl) 8.3 8.5-10.5 [place] 204890-10-04 09:57:00 Test Item Value Reference Range Interpretation Comments AGAP (test code = AGAP) 14.4 10.0-20.0 [place] 204890-10-04 09:57:00 Test Item Value Reference Range Interpretation Comments eGFR (test code = eGFR) 82 [facility] TempleCemspvuDSNEHVWXSK4057-37-84 09:57:00 Test Item Value Reference Range Interpretation Comments WBC (test code = WBC) 11.5 3.7-10.4 [facility] TempleNuiclipESKYCSIMBJ1105-72-83 09:57:00 Test Item Value Reference Range Interpretation Comments RBC (test code = RBC) 3.08 4.20-5.40 [place] 881660-10-04 09:57:00 Test Item Value Reference Range Interpretation Comments Hgb (test code = Hgb) 9.8 12.0-16.0 [place] [address]-10-04 09:57:00 Test Item Value Reference Range Interpretation Comments Hct (test code = Hct) 29.5 36.0-48.0 [place] [address]-10-04 09:57:00 Test Item Value Reference Range Interpretation Comments MCV (test code = MCV) 95.6 80.0-98.0 [place] [address]-10-04 09:57:00 Test Item Value Reference Range Interpretation Comments MCH (test code = MCH) 31.8 pg 27.0-31.0 [place] [address]-10-04 09:57:00 Test Item Value Reference Range Interpretation Comments MCHC (test code = MCHC) 33.3 32.0-36.0 [facility] TempleEdmsktsOBQXRFFYID7533-20-79 09:57:00 Test Item Value Reference Range Interpretation Comments RDW (test code = RDW) 13.3 11.5-14.5 [facility] TemplePuzpvrxTBTKPNWLAQ7412-21-16 09:57:00 Test Item Value Reference Range Interpretation Comments Platelet (test code = Platelet) 156 133-450 [facility] HospitalAwlhqtcWXMGZDTMME8044-07-21 09:57:00 Test Item Value Reference Range Interpretation Comments MPV (test code = MPV) 8.3 7.4-10.4 [facility] TempleBarvsxhVIZXRYQXGE1634-97-36 09:57:00 Test Item Value Reference Range Interpretation Comments Segs (test code = Segs) 86.2 45.0-75.0 [facility] TempleBsaailpTOABHKIPUN1019-03-46 09:57:00 Test Item Value Reference Range Interpretation Comments Lymphocytes (test code = Lymphocytes) 7.4 20.0-40.0 [facility] HospitalXwpamecGFHMDJOSBU9382-37-28 09:57:00 Test Item Value Reference Range Interpretation Comments Monocytes (test code = Monocytes) 6.3 2.0-12.0 [facility] HospitalGnxzzgcBSAGOVZLXB7607-32-50 09:57:00 Test Item Value Reference Range Interpretation Comments Basophils (test code = Basophils) 0.1 <=1.0 [facility] TempleMiyisusCSAXYOUEQQ4485-07-76 09:57:00 Test Item Value Reference Range Interpretation Comments Neutrophils # (test code = Neutrophils 9.9 1.5-8.1 #) [facility] HospitalWnssynxIVCIXQNYPR9617-13-54 09:57:00 Test Item Value Reference Range Interpretation Comments Lymphocytes # (test code = Lymphocytes 0.8 1.0-5.5 #) [facility] HospitalRkwpixfBFTYYNVPWK9691-61-31 09:57:00 Test Item Value Reference Range Interpretation Comments Monocytes # (test code = Monocytes #) 0.7 <=0.8 [facility] CenterAirborne Mobile NMFFC2294-52-49 10:02:52263Khnxpvel HermannCHEM PANEL 2020-05-17 10:02:0014[facility] HermannCHEM PWONP1519-27-82 10:02:000.67[facility] HermannCHEM AIVRR2190-73-08 10:02:84859Kfstmadb HermannCHEM FLJGV1577-35-85 10:02:004.1[facility] HermannCHEM CWNNP0037-67-58 10:02:95366Zmvhckrw HermannCHEM SKGXH2216-19-59 10:02:0024[facility] HermannCHEM UUMMY3935-34-50 10:02:0011.1 [facility]annCHEM QIMNM5816-74-65 10:02:009.5[facility] HermannCHEM PANEL 2020-05-17 10:02:0093[facility] IjeldsoDKDKBOJXKY0859-98-70 10:02:0082.9[facility] XvwbkbaZOTTPPYGVG4202-66-65 10:02:0011.6[facility] CpwnwcqMQHPUKUEXL9990-91-49 10:02:005.3[facility] WibexhmBQEKJRUTOO2293-95-40 10:02:000.2[facility] VRHOYHCOZM8495-05-58 10:02:005.2[facility] CszeibhMUFSSZCQUW8206-76-74 10:02:000.7 [facility] GuinheaXSZEKYGCCO5726-00-78 10:02:000.3[facility] HermannHEMATOLOGY 2020-05-17 10:02:00 Test Item Value Reference Range Interpretation Comments PT (test code = PT) 14.7 s 12.0-14.7 [facility] EhcwzmzNQKKYVMVFH3569-28-33 10:02:00 Test Item Value Reference Range Interpretation Comments INR (test code = INR) 1.14 1 0.85-1.17 [facility] QpdmpqeLMEAKMQMRU4083-73-49 10:02:006.3[facility] HermannHEMATOLOGY 2020-05-17 10:02:003.95[facility] FopynaaKHXNBEVZPO4368-41-79 10:02:0012.9[facility] ZxzktbwWVWYNUNOPF1633-83-60 10:02:0037.7[facility] HvgfrdbQJIRHYFYEA8431-55-15 10:02:0095.4[facility] WnyzgknPOWFCBSFUI8981-70-62 10:02:00 Test Item Value Reference Range Interpretation Comments MCH (test code = MCH) 32.6 pg 27.0-31.0 [facility] HchqpjrNVWCNWTRGY6360-90-90 10:02:0034.1[facility]HE[facility] 2020-05-17 10:02:0013.0[facility] DpoefcgSEAWJOEXPS1487-66-59 10:02:50779Dxaipzgs KupiaipKHSESDRXUE3364-13-52 10:02:007.8[facility]annAST[facility]IAL [facility] 2020-05-17 10:02:005.6[facility] MannfordCHEM MQRCW5527-93-48 10:02:00 Test Item Value Reference Range Interpretation Comments Glucose Lvl (test code = Glucose Lvl) 105 70-99 [facility]2020-10-03 10:02:00 Test Item Value Reference Range Interpretation Comments BUN (test code = BUN) 14 7-22 [facility]2020-10-03 10:02:00 Test Item Value Reference Range Interpretation Comments Creatinine Lvl (test code = Creatinine 0.67 0.50-1.40 Lvl) [facility]2020-10-03 10:02:00 Test Item Value Reference Range Interpretation Comments Sodium Lvl (test code = Sodium Lvl) 136 135-145 [facility]2020-10-03 10:02:00 Test Item Value Reference Range Interpretation Comments Potassium Lvl (test code = Potassium 4.1 3.5-5.1 Lvl) [facility]2020-10-03 10:02:00 Test Item Value Reference Range Interpretation Comments Chloride Lvl (test code = Chloride Lvl) 105 95-109 [facility]2020-10-03 10:02:00 Test Item Value Reference Range Interpretation Comments CO2 (test code = CO2) 24 24-32 [place] 204890-10-03 10:02:00 Test Item Value Reference Range Interpretation Comments AGAP (test code = AGAP) 11.1 10.0-20.0 [facility]2020-10-03 10:02:00 Test Item Value Reference Range Interpretation Comments Calcium Lvl (test code = Calcium Lvl) 9.5 8.5-10.5 [facility]2020-10-03 10:02:00 Test Item Value Reference Range Interpretation Comments eGFR (test code = eGFR) 93 [place] 881660-10-03 10:02:00 Test Item Value Reference Range Interpretation Comments Segs (test code = Segs) 82.9 45.0-75.0 [facility] TempleJgmsfoxZRXUQHAKRR3955 10:02:00 Test Item Value Reference Range Interpretation Comments Lymphocytes (test code = Lymphocytes) 11.6 20.0-40.0 [facility] TempleRkeygxyJJULWOCRMM3501-57-51 10:02:00 Test Item Value Reference Range Interpretation Comments Monocytes (test code = Monocytes) 5.3 2.0-12.0 [facility] TempleHhkmhrrSVNIBQISUR6408-92-26 10:02:00 Test Item Value Reference Range Interpretation Comments Basophils (test code = 0.2 See_Comment [Aut omated message] The Basophils) system which ge nerated this result tra nsmitted reference range : <=1.0. The reference r thierry was not used to int erpret this result as normal/abnormal . [facility] TempleKbnculhGUKJVBXRWR0890-13-33 10:02:00 Test Item Value Reference Range Interpretation Comments Neutrophils # (test code = Neutrophils 5.2 1.5-8.1 #) [facility] TemplePtceaujIDUWOGBYAL4489-23-76 10:02:00 Test Item Value Reference Range Interpretation Comments Lymphocytes # (test code = Lymphocytes 0.7 1.0-5.5 #) [facility] TempleCxhgxygPPVVEODFFM1303-05-14 10:02:00 Test Item Value Reference Range Interpretation Comments Monocytes # (test code 0.3 See_Comment [Aut omated message] The = Monocytes #) system which generated this result tra nsmitted reference range : <=0.8. The reference r thierry was not used to int erpret this result as normal/abnormal . [facility] TempleVlkzljjYQLKAPWNAS4769-73-59 10:02:00 Test Item Value Reference Range Interpretation Comments PT (test code = PT) 14.7 s 12.0-14.7 [facility] TempleXdgklbcLKUFYOBRZH8388-39-77 10:02:00 Test Item Value Reference Range Interpretation Comments INR (test code = INR) 1.14 1 0.85-1.17 [place] [address]-10-03 10:02:00 Test Item Value Reference Range Interpretation Comments WBC (test code = WBC) 6.3 3.7-10.4 [facility] TempleHennylxYODBPJYYLA9149-02-01 10:02:00 Test Item Value Reference Range Interpretation Comments RBC (test code = RBC) 3.95 4.20-5.40 [facility] CenterVxmubqrYHLQXSJOCU3191-98-18 10:02:00 Test Item Value Reference Range Interpretation Comments Hgb (test code = Hgb) 12.9 12.0-16.0 [facility] CenterDoubgdsXWLBKAEKCM1103-89-75 10:02:00 Test Item Value Reference Range Interpretation Comments Hct (test code = Hct) 37.7 36.0-48.0 [facility] HospitalJutfhoiODQJRWNRLY1533-54-54 10:02:00 Test Item Value Reference Range Interpretation Comments MCV (test code = MCV) 95.4 80.0-98.0 [facility] CenterUfasahhUEWVHOHDDZ1874-58-44 10:02:00 Test Item Value Reference Range Interpretation Comments MCH (test code = MCH) 32.6 pg 27.0-31.0 [facility] HospitalDmgvwejDHCQNCROUK2447-37-34 10:02:00 Test Item Value Reference Range Interpretation Comments MCHC (test code = MCHC) 34.1 32.0-36.0 [facility] HospitalUluursnPRRCHFZQMC0985-03-24 10:02:00 Test Item Value Reference Range Interpretation Comments RDW (test code = RDW) 13.0 11.5-14.5 [facility] CenterZmgsgvyIKJYYQEAKH7647-33-89 10:02:00 Test Item Value Reference Range Interpretation Comments Platelet (test code = Platelet) 176 133-450 [facility] HospitalLugwnweGZOJDBNTXJ4567-41-41 10:02:00 Test Item Value Reference Range Interpretation Comments MPV (test code = MPV) 7.8 7.4-10.4 [facility] QEFNDLHMD5214-66-16 10:02:00 Test Item Value Reference Range Interpretation Comments Hgb A1C (test code = Hgb A1C) 5.6 [facility] CenterAirborne Mobile PLFZZ9423-32-32 10:02:00 Test Item Value Reference Range Interpretation Comments Glucose Lvl (test code = Glucose Lvl) 105 70-[address] [facility] DAYAJ2149-33-20 10:02:00 Test Item Value Reference Range Interpretation Comments BUN (test code = BUN) 14 7-[address] [facility] NAUOT9708-00-84 10:02:00 Test Item Value Reference Range Interpretation Comments Creatinine Lvl (test code = Creatinine 0.67 0.50-1.40 Lvl) [facility]2020-10-03 10:02:00 Test Item Value Reference Range Interpretation Comments Sodium Lvl (test code = Sodium Lvl) 136 135-145 [facility]2020-10-03 10:02:00 Test Item Value Reference Range Interpretation Comments Potassium Lvl (test code = Potassium 4.1 3.5-5.1 Lvl) [facility]2020-10-03 10:02:00 Test Item Value Reference Range Interpretation Comments Chloride Lvl (test code = Chloride Lvl) 105 95-109 [facility]2020-10-03 10:02:00 Test Item Value Reference Range Interpretation Comments CO2 (test code = CO2) 24 24-32 [place] 204890-10-03 10:02:00 Test Item Value Reference Range Interpretation Comments AGAP (test code = AGAP) 11.1 10.0-20.0 [place] 204890-10-03 10:02:00 Test Item Value Reference Range Interpretation Comments Calcium Lvl (test code = Calcium Lvl) 9.5 8.5-10.5 [facility]2020-10-03 10:02:00 Test Item Value Reference Range Interpretation Comments eGFR (test code = eGFR) 93 [facility] TempleVdzoyefIOSWASAGVZ4197-78-01 10:02:00 Test Item Value Reference Range Interpretation Comments Segs (test code = Segs) 82.9 45.0-75.0 [place] 881660-10-03 10:02:00 Test Item Value Reference Range Interpretation Comments Lymphocytes (test code = Lymphocytes) 11.6 20.0-40.0 [place] 881660-10-03 10:02:00 Test Item Value Reference Range Interpretation Comments Monocytes (test code = Monocytes) 5.3 2.0-12.0 [place] [address]-10-03 10:02:00 Test Item Value Reference Range Interpretation Comments Basophils (test code = Basophils) 0.2 <=1.0 [place] [address]-10-03 10:02:00 Test Item Value Reference Range Interpretation Comments Neutrophils # (test code = Neutrophils 5.2 1.5-8.1 #) [place] 881660-10-03 10:02:00 Test Item Value Reference Range Interpretation Comments Lymphocytes # (test code = Lymphocytes 0.7 1.0-5.5 #) [facility] TempleLriktdhGTYGYLHHNJ1079-80-37 10:02:00 Test Item Value Reference Range Interpretation Comments Monocytes # (test code = Monocytes #) 0.3 <=0.8 [facility] TempleTxcqoyaWQXMYITHAM2068-34-86 10:02:00 Test Item Value Reference Range Interpretation Comments PT (test code = PT) 14.7 s 12.0-14.7 [facility] TempleOaiwwqkRVQJVNZENG0416-94-80 10:02:00 Test Item Value Reference Range Interpretation Comments INR (test code = INR) 1.14 1 0.85-1.17 [facility] TempleRfccxycHJRAYJFTDK2594-70-23 10:02:00 Test Item Value Reference Range Interpretation Comments WBC (test code = WBC) 6.3 3.7-10.4 [facility] TempleWfvfeezZEVMZJZHQB7315-76-51 10:02:00 Test Item Value Reference Range Interpretation Comments RBC (test code = RBC) 3.95 4.20-5.40 [facility] TempleFizbwivZGAUTKTNTC8296-83-36 10:02:00 Test Item Value Reference Range Interpretation Comments Hgb (test code = Hgb) 12.9 12.0-16.0 [facility] TempleQorcaqbMEADQTCLIW1412-95-25 10:02:00 Test Item Value Reference Range Interpretation Comments Hct (test code = Hct) 37.7 36.0-48.0 [facility] TempleSsrikpuYDAIVWFQZZ7959-10-66 10:02:00 Test Item Value Reference Range Interpretation Comments MCV (test code = MCV) 95.4 80.0-98.0 [facility] TempleUdqvueeNTXJYQUUHL6527-42-17 10:02:00 Test Item Value Reference Range Interpretation Comments MCH (test code = MCH) 32.6 pg 27.0-31.0 [facility] TempleQnmnximDGUQPHXVIL0231-54-86 10:02:00 Test Item Value Reference Range Interpretation Comments MCHC (test code = MCHC) 34.1 32.0-36.0 [facility] TempleZsdkxtaUNQDCOMJPB9774-89-86 10:02:00 Test Item Value Reference Range Interpretation Comments RDW (test code = RDW) 13.0 11.5-14.5 [facility] TemplePipizvdYSASSVXNOI7574-55-69 10:02:00 Test Item Value Reference Range Interpretation Comments Platelet (test code = Platelet) 176 133-450 [facility] TempleEyxjzspIXOXEDUUKU7499-40-75 10:02:00 Test Item Value Reference Range Interpretation Comments MPV (test code = MPV) 7.8 7.4-10.4 [facility]annSPECIAL BRAIOVQPQ4183-85-66 10:02:00 Test Item Value Reference Range Interpretation Comments Hgb A1C (test code = Hgb A1C) 5.6 [facility] HospitalannCulture: Modhm4883-88-21 01:06:20 Test Item Value Reference Range Interpretation Comments Culture: Urine (test 10,000 - 50,000 CFU/mL code = Culture: Urine) Skin [place] [facility] HospitalannCulture: Oerou7330-78-08 01:06:20 Test Item Value Reference Range Interpretation Comments Culture: Urine (test 10,000 - 50,000 CFU/mL code = Culture: Urine) Skin [place] [facility] HospitalTbdnhpuMSDRSDLUQI6351-04-45 00:32:00Not Detected (05/16/20 7:32 PM) [facility] DohcuttVZHGKCEFMT8474-08-36 00:32:00 Test Item Value Reference Range Interpretation Comments Coronavirus (COVID-19) Not Detected (05/16/20 GILDA (test code = 7:32 PM) Coronavirus (COVID-19) GILDA) [facility] CaanestITYJCPDEAV2049-15-93 00:32:00 Test Item Value Reference Range Interpretation Comments Coronavirus (COVID-19) Not Detected (05/16/20 GILDA (test code = 7:32 PM) Coronavirus (COVID-19) GILDA) [facility] [id number] 00:21:00Amber *ABN*(05/16/20 7:21 PM) [facility] [id number] 00:21:00Clear (05/16/20 7:21 PM) [facility] [id number] 00:21:00 Test Item Value Reference Range Interpretation Comments UA Spec Grav (test code = UA Spec 1.027 1 Grav) [facility] [id number] 00:21:00 Test Item Value Reference Range Interpretation Comments UA pH (test code = UA pH) 5.0 1 5.0-8.0 [facility] [id number] 00:21:00Negative *NA*(05/16/20 7:21 PM) [facility] [id number] 00:21:00Negative (05/16/20 7:21 PM) [facility] [id number] 00:21:00Negative (05/16/20 7:21 PM) [facility] [id number] 00:21:00Trace *ABN*(05/16/20 7:21 PM) [facility] [id number] 00:21:0032[facility] [id number] 00:21:004[facility] [id number] 00:21:003 [facility] [id number] 00:21:00 Test Item Value Reference Range Interpretation Comments UA Color (test code = Joanne *ABN*(05/16/20 UA Color) 7:21 PM) [facility] [id number] 00:21:00 Test Item Value Reference Range Interpretation Comments UA Turbidity (test code = Clear (05/16/20 7:21 UA Turbidity) PM) [facility] [id number] 00:21:00 Test Item Value Reference Range Interpretation Comments UA Spec Grav (test code = UA Spec 1.027 1 Grav) [facility] [id number] 00:21:00 Test Item Value Reference Range Interpretation Comments UA pH (test code = UA pH) 5.0 1 5.0-8.0 [facility] [id number] 00:21:00 Test Item Value Reference Range Interpretation Comments UA Protein (test code = UA Negative mg/dL Protein) [facility] [id number] 00:21:00 Test Item Value Reference Range Interpretation Comments UA Glucose (test code = UA Negative mg/dL Glucose) [facility] [id number] 00:21:00 Test Item Value Reference Range Interpretation Comments UA Ketones (test code = UA Ketones) 80 mg/dL [facility] [id number] 00:21:00 Test Item Value Reference Range Interpretation Comments UA Bili (test code = Negative *NA*(05/16/20 UA Bili) 7:21 PM) [facility] [id number] 00:21:00 Test Item Value Reference Range Interpretation Comments UA Blood (test code = Negative (05/16/20 7:21 UA Blood) PM) [facility] [id number] 00:21:00 Test Item Value Reference Range Interpretation Comments UA Nitrite (test code Negative (05/16/20 7:21 = UA Nitrite) PM) [facility] [id number] 00:21:00 Test Item Value Reference Range Interpretation Comments UA Leuk Est (test code Trace *ABN*(05/16/20 = UA Leuk Est) 7:21 PM) [facility] [id number] 00:21:00 Test Item Value Reference Range Interpretation Comments UA Sq Epi (test code = UA Sq Occasional /LPF Epi) [facility] [id number] 00:21:00 Test Item Value Reference Range Interpretation Comments UA WBC (test code = 32 See_Comment [Automa miryam message] The UA WBC) system which ge nerated this result transmit miryam reference range : <=5. The reference range was not used to interpr et this result as jose l/abnormal. [facility] [id number] 00:21:00 Test Item Value Reference Range Interpretation Comments UA RBC (test code = 4 See_Comment [Automa miryam message] The UA RBC) system which ge nerated this result transmit miryam reference range : <=2. The reference range was not used to interpr et this result as jose l/abnormal. [facility] [id number] 00:21:00 Test Item Value Reference Range Interpretation Comments UA Bacteria (test code = UA Occasional /HPF Bacteria) [facility] [id number] 00:21:00 Test Item Value Reference Range Interpretation Comments UA Mucus (test code = UA Mucus) Few /LPF [facility] [id number] 00:21:00 Test Item Value Reference Range Interpretation Comments UA Hyal Cast (test 3 See_Comment [Automat ed message] The code = UA Hyal Cast) system which generated this result transmit miryam reference range : <=2. The reference range was not used to interpr et this result as jose l/abnormal. [facility] [id number] 00:21:00 Test Item Value Reference Range Interpretation Comments UA Urobilinogen (test code = UA <=1.0 mg/dL 0.1-1.0 Urobilinogen) [facility] AND [id number] 00:21:00 Test Item Value Reference Range Interpretation Comments UA Color (test code = Joanne *ABN*(05/16/20 UA Color) 7:21 PM) [facility] AND [id number] 00:21:00 Test Item Value Reference Range Interpretation Comments UA Turbidity (test code = Clear (05/16/20 7:21 UA Turbidity) PM) [facility] AND [id number] 00:21:00 Test Item Value Reference Range Interpretation Comments UA Spec Grav (test code = UA Spec 1.027 1 Grav) [facility] AND [id number] 00:21:00 Test Item Value Reference Range Interpretation Comments UA pH (test code = UA pH) 5.0 1 5.0-8.0 [facility] AND [id number] 00:21:00 Test Item Value Reference Range Interpretation Comments UA Protein (test code = UA Negative mg/dL Protein) [facility] AND [id number] 00:21:00 Test Item Value Reference Range Interpretation Comments UA Glucose (test code = UA Negative mg/dL Glucose) [facility] AND [id number] 00:21:00 Test Item Value Reference Range Interpretation Comments UA Ketones (test code = UA Ketones) 80 mg/dL [facility] AND [id number] 00:21:00 Test Item Value Reference Range Interpretation Comments UA Bili (test code = Negative *NA*(05/16/20 UA Bili) 7:21 PM) [facility] AND [id number] 00:21:00 Test Item Value Reference Range Interpretation Comments UA Blood (test code = Negative (05/16/20 7:21 UA Blood) PM) [facility] AND [id number] 00:21:00 Test Item Value Reference Range Interpretation Comments UA Nitrite (test code Negative (05/16/20 7:21 = UA Nitrite) PM) [facility] AND [id number] 00:21:00 Test Item Value Reference Range Interpretation Comments UA Leuk Est (test code Trace *ABN*(05/16/20 = UA Leuk Est) 7:21 PM) [facility] [id number] 00:21:00 Test Item Value Reference Range Interpretation Comments UA Sq Epi (test code = UA Sq Occasional /LPF Epi) [facility] [id number] 00:21:00 Test Item Value Reference Range Interpretation Comments UA WBC (test code = UA WBC) 32 <=5 [facility] [id number] 00:21:00 Test Item Value Reference Range Interpretation Comments UA RBC (test code = UA RBC) 4 <=2 [facility] [id number] 00:21:00 Test Item Value Reference Range Interpretation Comments UA Bacteria (test code = UA Occasional /HPF Bacteria) [facility] [id number] 00:21:00 Test Item Value Reference Range Interpretation Comments UA Mucus (test code = UA Mucus) Few /LPF [facility] [id number] 00:21:00 Test Item Value Reference Range Interpretation Comments UA Hyal Cast (test code = UA Hyal Cast) 3 <=2 [facility] [id number] 00:21:00 Test Item Value Reference Range Interpretation Comments UA Urobilinogen (test code = UA <=1.0 mg/dL 0.1-1.0 Urobilinogen) [facility] [employer] [id number] 23:58:0043[facility] 2020-[facility]16 23:58:00 Test Item Value Reference Range Interpretation Comments Vitamin D, 25-OH, Total (test code = 43 30-100 Vitamin D, 25-OH, Total) [facility] [employer] [id number] 23:58:00 Test Item Value Reference Range Interpretation Comments Vitamin D, 25-OH, Total (test code = 43 30-100 Vitamin D, 25-OH, Total) [facility] [employer] [id number] 20:27:00Negative (05/16/20 3:27 PM) [facility] [employer] [id number] 20:27:14133Okbscyrg HermannCHEM PANEL 2020-05-16 20:27:0013[facility]CHE[facility] [id number] 20:27:000.90[facility] FDCJB4896-73-57 20:27:55514Hapmztvw [facility]annCHE[facility] FZZAL6491-68-61 20:27:003.3[facility] ODGYS1310-37-34 20:27:84859Acfqtisw HermannCHEM YUXJZ9279-26-50 20:27:0024[facility] [id number] 20:27:0012.3 [facility] [id number] 20:27:009.7[facility]annCHE[facility] PANEL 2020-05-16 20:27:0068[facility] DqdxsbaUCDNNSYKVEKU9136-38-14 20:27:0012.3[facility] OshowabPZVQBZYBYJ0566-57-29 20:27:007.8[facility] YdnusisELDYXXUFHL1281-79-30 20:27:004.00[facility] ZjzmyyeSXSNNSJLJC7556-90-93 20:27:0013.1[facility] DRAZWMQZEE1373-52-52 20:27:0038.4[facility] DltaukvFFDBVYUBRJ0724-34-22 20:27:00 96.0[facility] TcveyefGNRWUKRPVS3696-96-23 20:27:00 Test Item Value Reference Range Interpretation Comments MCH (test code = MCH) 32.7 pg 27.0-31.0 [facility] CkosxtiPEJVRSWDVJ9851-49-32 20:27:0034.0[facility]annHEMATOLOGY 2020-05-16 20:27:0013.0[facility] LugzrlqUOTIYWFAWM4529-85-25 20:27:80624Ivbdmsek RthryajIWPXLZUQBJ8436-43-99 20:27:008.2[facility] DavqmelCEKYJDXYPH2393-07-36 20:27:0072.2[facility] PbqanjjFUAJNAKNWH6176-19-71 20:27:0019.8[facility] Ney ENBIMTXVAY7524-86-60 20:27:006.7[facility] JusajjfQCVNCSQUNH7310-64-78 20:27:000.9 [facility] LlijvkyDLDNJMTPQI9700-37-44 20:27:000.4[facility]annHEMATOLOGY 2020-05-16 20:27:005.6[facility] QvyzuwyBFHDRJMMUQ4047-27-65 20:27:001.6[facility] HtgnpnkTTVSXHDHEZ7498-11-65 20:27:000.5[facility] TiogjrhYSLLVQMLUC9124-89-91 20:27:000.1[facility] GKIYXDN2057-68-34 20:27:00 Test Item Value Reference Range Interpretation Comments ABO/Rh (test code = ABO/Rh) A POS [facility] [employer] [id number] 20:27:00 Test Item Value Reference Range Interpretation Comments Antibody Scrn (test Negative (05/16/20 3:27 code = Antibody Scrn) PM) [facility] [employer] [id number] 20:27:00 Test Item Value Reference Range Interpretation Comments Glucose Lvl (test code = Glucose Lvl) 117 70-99 [facility] [employer] [id number] 20:27:00 Test Item Value Reference Range Interpretation Comments BUN (test code = BUN) 13 7-22 [facility] [employer] [id number] 20:27:00 Test Item Value Reference Range Interpretation Comments Creatinine Lvl (test code = Creatinine 0.90 0.50-1.40 Lvl) [facility] [employer] [id number] 20:27:00 Test Item Value Reference Range Interpretation Comments Sodium Lvl (test code = Sodium Lvl) 139 135-145 [facility] [employer] [id number] 20:27:00 Test Item Value Reference Range Interpretation Comments Potassium Lvl (test code = Potassium 3.3 3.5-5.1 Lvl) [facility] [employer] [id number] 20:27:00 Test Item Value Reference Range Interpretation Comments Chloride Lvl (test code = Chloride Lvl) 106 95-109 [facility] [employer] [id number] 20:27:00 Test Item Value Reference Range Interpretation Comments CO2 (test code = CO2) 24 24-32 [facility] [employer] [id number] 20:27:00 Test Item Value Reference Range Interpretation Comments AGAP (test code = AGAP) 12.3 10.0-20.0 [facility] [employer] [id number] 20:27:00 Test Item Value Reference Range Interpretation Comments Calcium Lvl (test code = Calcium Lvl) 9.7 8.5-10.5 [facility] [id number] 20:27:00 Test Item Value Reference Range Interpretation Comments eGFR (test code = eGFR) 68 [facility]zwfRXAEPFNYEZEB3936-63-20 20:27:00 Test Item Value Reference Range Interpretation Comments AGAP (test code = AGAP) 12.3 10.0-20.0 [facility] CenterSavckedEHMEDNBWQH7105-48-12 20:27:00 Test Item Value Reference Range Interpretation Comments WBC (test code = WBC) 7.8 3.7-10.4 [facility] CenterQkvcatdAKZZEJOKEZ3867-08-03 20:27:00 Test Item Value Reference Range Interpretation Comments RBC (test code = RBC) 4.00 4.20-5.40 [facility] CenterOwvznbhTZWJOCXUQI5460-71-43 20:27:00 Test Item Value Reference Range Interpretation Comments Hgb (test code = Hgb) 13.1 12.0-16.0 [facility] HospitalXblmxbiFCDIHDTXDJ2007-07-62 20:27:00 Test Item Value Reference Range Interpretation Comments Hct (test code = Hct) 38.4 36.0-48.0 [facility] HospitalXkzkhneYCVCBLTMZI9285-39-81 20:27:00 Test Item Value Reference Range Interpretation Comments MCV (test code = MCV) 96.0 80.0-98.0 [facility] CenterBenrtqiDGSSXEOTQF9218-52-50 20:27:00 Test Item Value Reference Range Interpretation Comments MCH (test code = MCH) 32.7 pg 27.0-31.0 [facility] CenterSajvzxhLDPZIZJAYC2559-45-94 20:27:00 Test Item Value Reference Range Interpretation Comments MCHC (test code = MCHC) 34.0 32.0-36.0 [facility] CenterDjshlviEEBHWUPZLD8338-59-16 20:27:00 Test Item Value Reference Range Interpretation Comments RDW (test code = RDW) 13.0 11.5-14.5 [facility] CenterDjjybatLFYWEYTYTT3828-42-21 20:27:00 Test Item Value Reference Range Interpretation Comments Platelet (test code = Platelet) 178 133-450 [facility] HospitalClvacwhADGTCPDSIX3182-86-22 20:27:00 Test Item Value Reference Range Interpretation Comments MPV (test code = MPV) 8.2 7.4-10.4 [facility] CenterVpyxqjcVGFUWTIUNW5333-25-98 20:27:00 Test Item Value Reference Range Interpretation Comments Segs (test code = Segs) 72.2 45.0-75.0 [place] [id number] 20:27:00 Test Item Value Reference Range Interpretation Comments Lymphocytes (test code = Lymphocytes) 19.8 20.0-40.0 [place] 881660-10-02 20:27:00 Test Item Value Reference Range Interpretation Comments Monocytes (test code = Monocytes) 6.7 2.0-12.0 [place] 881660-10-02 20:27:00 Test Item Value Reference Range Interpretation Comments Eosinophils (test code = 0.9 See_Comment [A utomated message] The Eosinophils) system which ge nerated this result tra nsmitted reference range : <=4.0. The reference r thierry was not used to int erpret this result as normal/abnormal . [place] [address]-10-02 20:27:00 Test Item Value Reference Range Interpretation Comments Basophils (test code = 0.4 See_Comment [Aut omated message] The Basophils) system which ge nerated this result tra nsmitted reference range : <=1.0. The reference r thierry was not used to int erpret this result as normal/abnormal . [facility] TemplePaweoiuWDKUVLIPWI3013-35-93 20:27:00 Test Item Value Reference Range Interpretation Comments Neutrophils # (test code = Neutrophils 5.6 1.5-8.1 #) [place] [address]-10-02 20:27:00 Test Item Value Reference Range Interpretation Comments Lymphocytes # (test code = Lymphocytes 1.6 1.0-5.5 #) [place] 881660-10-02 20:27:00 Test Item Value Reference Range Interpretation Comments Monocytes # (test code 0.5 See_Comment [Aut omated message] The = Monocytes #) system which generated this result tra nsmitted reference range : <=0.8. The reference r thierry was not used to int erpret this result as normal/abnormal . [place] 881660-10-02 20:27:00 Test Item Value Reference Range Interpretation Comments Eosinophils # (test code 0.1 See_Comment [A utomated message] The = Eosinophils #) system whic h generated this result tra nsmitted reference range : <=0.5. The reference r thierry was not used to int erpret this result as normal/abnormal . [facility] PQYFWCP4435-64-20 20:27:00 Test Item Value Reference Range Interpretation Comments ABO/Rh (test code = ABO/Rh) A POS [facility] [id number] 20:27:00 Test Item Value Reference Range Interpretation Comments Antibody Scrn (test Negative (05/16/20 3:27 code = Antibody Scrn) PM) [facility] [employer] [id number] 20:27:00 Test Item Value Reference Range Interpretation Comments Glucose Lvl (test code = Glucose Lvl) 117 70-99 [facility] [employer] [id number] 20:27:00 Test Item Value Reference Range Interpretation Comments BUN (test code = BUN) 13 7-22 [facility] [employer] [id number] 20:27:00 Test Item Value Reference Range Interpretation Comments Creatinine Lvl (test code = Creatinine 0.90 0.50-1.40 Lvl) [facility] [employer] [id number] 20:27:00 Test Item Value Reference Range Interpretation Comments Sodium Lvl (test code = Sodium Lvl) 139 135-145 [facility] [employer] [id number] 20:27:00 Test Item Value Reference Range Interpretation Comments Potassium Lvl (test code = Potassium 3.3 3.5-5.1 Lvl) [facility] [employer] [id number] 20:27:00 Test Item Value Reference Range Interpretation Comments Chloride Lvl (test code = Chloride Lvl) 106 95-109 [facility] [employer] [id number] 20:27:00 Test Item Value Reference Range Interpretation Comments CO2 (test code = CO2) 24 24-32 [facility] [employer] [id number] 20:27:00 Test Item Value Reference Range Interpretation Comments AGAP (test code = AGAP) 12.3 10.0-20.0 [facility] [employer] [id number] 20:27:00 Test Item Value Reference Range Interpretation Comments Calcium Lvl (test code = Calcium Lvl) 9.7 8.5-10.5 [facility] [employer] [id number] 20:27:00 Test Item Value Reference Range Interpretation Comments eGFR (test code = eGFR) 68 [facility] UptownZwhxwxfELMLMLHFOLQS8125-46-13 20:27:00 Test Item Value Reference Range Interpretation Comments AGAP (test code = AGAP) 12.3 10.0-20.0 [facility] TempleJyzbfgwLNWRLYJQCA1979-79-99 20:27:00 Test Item Value Reference Range Interpretation Comments WBC (test code = WBC) 7.8 3.7-10.4 [facility] TempleSdkzsaoPRJDQZFPSD4637-17-08 20:27:00 Test Item Value Reference Range Interpretation Comments RBC (test code = RBC) 4.00 4.20-5.40 [facility] TempleTzdbkrvUVYPRIFZAU3860-05-35 20:27:00 Test Item Value Reference Range Interpretation Comments Hgb (test code = Hgb) 13.1 12.0-16.0 [facility] TempleEmzjzfgZEZIXEMJTD9209-63-43 20:27:00 Test Item Value Reference Range Interpretation Comments Hct (test code = Hct) 38.4 36.0-48.0 [facility] TempleGiygdnfJFCSHGZJVA8242-90-95 20:27:00 Test Item Value Reference Range Interpretation Comments MCV (test code = MCV) 96.0 80.0-98.0 [facility] TempleFwkmyvsZYRMLMVDIZ9342-88-95 20:27:00 Test Item Value Reference Range Interpretation Comments MCH (test code = MCH) 32.7 pg 27.0-31.0 [facility] TempleNpnewroFGLMVHVKPV3129-62-73 20:27:00 Test Item Value Reference Range Interpretation Comments MCHC (test code = MCHC) 34.0 32.0-36.0 [facility] TempleHhfhlefVOEBPVALZJ2017-34-01 20:27:00 Test Item Value Reference Range Interpretation Comments RDW (test code = RDW) 13.0 11.5-14.5 [facility] TempleIfvqmjlILWZMCXBWO0927-20-22 20:27:00 Test Item Value Reference Range Interpretation Comments Platelet (test code = Platelet) 178 133-450 [facility] TempleNmmaqusNQKQUAMJOW7892-48-48 20:27:00 Test Item Value Reference Range Interpretation Comments MPV (test code = MPV) 8.2 7.4-10.4 [facility] TempleFrwrrgqVBMLUZBUEA5187-86-68 20:27:00 Test Item Value Reference Range Interpretation Comments Segs (test code = Segs) 72.2 45.0-75.0 [facility] TempleHjrpydwPFVSWTEQYM4971-23-52 20:27:00 Test Item Value Reference Range Interpretation Comments Lymphocytes (test code = Lymphocytes) 19.8 20.0-40.0 [facility] CenterQcaqmgpFPNHGEDVUJ0257-32-82 20:27:00 Test Item Value Reference Range Interpretation Comments Monocytes (test code = Monocytes) 6.7 2.0-12.0 [facility] HospitalUowtxcvZUPTDMPKRQ4185-50-62 20:27:00 Test Item Value Reference Range Interpretation Comments Eosinophils (test code = Eosinophils) 0.9 <=4.0 [facility] CenterItqkcmxRXDCYIZJGP1623-61-23 20:27:00 Test Item Value Reference Range Interpretation Comments Basophils (test code = Basophils) 0.4 <=1.0 [facility] HospitalScnafepGOANABISAJ5040-88-97 20:27:00 Test Item Value Reference Range Interpretation Comments Neutrophils # (test code = Neutrophils 5.6 1.5-8.1 #) [facility] HospitalRoxbtbnZNTJAVNKKY1095-66-19 20:27:00 Test Item Value Reference Range Interpretation Comments Lymphocytes # (test code = Lymphocytes 1.6 1.0-5.5 #) [facility] HospitalSidmugaWTMNUKODNT5956-94-54 20:27:00 Test Item Value Reference Range Interpretation Comments Monocytes # (test code = Monocytes #) 0.5 <=0.8 [facility] CenterMoiclahEZYYBNYKQO9153-90-87 20:27:00 Test Item Value Reference Range Interpretation Comments Eosinophils # (test code = Eosinophils 0.1 <=0.5 #) [facility] HermannCARDIAC VOBQLKR7259-23-87 05:41:0050[facility] HermannCARDIAC RXJRAIQ0758-68-26 05:41:32254Ffrxkirc HermannCARDIAC LNOHKBW7688-09-69 05:41:00 <0.02[facility] HermannCHEM QUNCC3906-22-45 05:41:01725Nuyhmusu HermannCHEM MSNLR3978-40-08 05:41:0012[facility] HermannCHEM MWFAK6366-20-72 05:41:000.88 [facility]annCHEM TDYKC5673-44-34 05:41:21360Ungyiths HermannCHEM PANEL 2020-01-23 05:41:004.4[facility] HermannCHEM QOPEI5974-71-69 05:41:05881Citjzeup HermannCHEM RPNPY2886-98-21 05:41:0025[facility] HermannCHEM KDICL9935-67-83 05:41:008.7[facility] HermannCHEM AIEBV8300-33-26 05:41:007.0[facility] HermannCHEM LDCSS9582-54-39 05:41:003.6[facility] HermannCHEM IXOMP5304-10-55 05:41:0019 [facility]annCHEM RVDSQ6678-71-18 05:41:0029[facility] HermannCHEM PANEL 2020-01-23 05:41:0069[facility] HermannCHEM CZVFR2711-51-85 05:41:000.7[facility] HermannCHEM PBLXO9269-41-72 05:41:0011.4[facility] HermannCHEM EKVNI3924-90-26 05:41:00 Test Item Value Reference Range Interpretation Comments B/C Ratio (test code = B/C Ratio) 14 1 6-25 [facility]annCHEM SADZL6457-81-02 05:41:003.4[facility] HermannCHEM PANEL 2020-01-23 05:41:00 Test Item Value Reference Range Interpretation Comments A/G Ratio (test code = A/G Ratio) 1.1 1 0.7-1.6 [facility]annCHEM JFXUL7492-96-83 05:41:0069[facility] HermannHEMATOLOGY 2020-01-23 05:41:009.3[facility] UeckhpfEWMGVRLZFL9646-04-38 05:41:003.87[facility] VsatxizOEDUTPXWTL7342-14-21 05:41:0012.7[facility] CwkydztPJOZWRYQSR5062-97-77 05:41:0036.6[facility] IkhmjbvBYUXXJBLHY9809-58-19 05:41:0094.6[facility] CSHFZCWJEN1854-51-99 05:41:00 Test Item Value Reference Range Interpretation Comments MCH (test code = MCH) 32.9 pg 27.0-31.0 [facility] UocudzzSCJZZIGLHD4971-89-68 05:41:0034.8[facility]annHEMATOLOGY 2020-01-23 05:41:0012.9[facility] ZrczrkxHGZSOVAIPR2801-06-69 05:41:73533Nnuwvyzo GiwobmfQSKJHZTHMF3401-44-01 05:41:008.3[facility] KmwczjlJLYYWDPJCI2308-98-98 05:41:00 Test Item Value Reference Range Interpretation Comments PT (test code = PT) 14.0 s 12.0-14.7 [facility] RzrijjsIPMMVYWPJY6370-46-76 05:41:00 Test Item Value Reference Range Interpretation Comments INR (test code = INR) 1.08 1 0.85-1.17 [facility] BycbzwfCDLUMRJDKE6572-70-03 05:41:0075.3[facility] HermannHEMATOLOGY 2020-01-23 05:41:0016.6[facility] OtgizkfETMMJUNSJB0293-05-72 05:41:006.7[facility] UzqrfrlRRUDUDPNQA9120-27-42 05:41:001.1[facility] VjusvmuUGKZKIIOZH8992-75-58 05:41:000.3[facility] VumosbfAIBCAORZDL5070-47-87 05:41:007.0[facility] Ney XTTRXRWRLE8709-29-94 05:41:001.5[facility] MrhcrgqLUXWOUQQYV7661-78-55 05:41:000.6 [facility] LyijaumHCJXAFOIUM5469-90-40 05:41:000.1[facility] HermannCARDIAC ENZYMES 2020-01-23 05:41:00 Test Item Value Reference Range Interpretation Comments BNP (test code = BNP) 50 [facility] BZQINYC0470-13-09 05:41:00 Test Item Value Reference Range Interpretation Comments Total CK (test code = Total CK) 106 12-191 [facility] [id number] 05:41:00 Test Item Value Reference Range Interpretation Comments Troponin-I (test code no gt See_Comment [Auto mated message] The = Troponin-I) system which g enerated this result transmit miryam reference range : <=0.40. The reference r thierry was not used to interpr et this result as jose l/abnormal. [facility] [employer] [id number] 05:41:00 Test Item Value Reference Range Interpretation Comments Glucose Lvl (test code = Glucose Lvl) 142 70-99 [facility] [id number] 05:41:00 Test Item Value Reference Range Interpretation Comments BUN (test code = BUN) 12 7-22 [facility]2020-06-10 05:41:00 Test Item Value Reference Range Interpretation Comments Creatinine Lvl (test code = Creatinine 0.88 0.50-1.40 Lvl) [place] 204890-06-10 05:41:00 Test Item Value Reference Range Interpretation Comments Sodium Lvl (test code = Sodium Lvl) 138 135-145 [place] 204890-06-10 05:41:00 Test Item Value Reference Range Interpretation Comments Potassium Lvl (test code = Potassium 4.4 3.5-5.1 Lvl) [place] 204890-06-10 05:41:00 Test Item Value Reference Range Interpretation Comments Chloride Lvl (test code = Chloride Lvl) 106 95-109 [place] 204890-06-10 05:41:00 Test Item Value Reference Range Interpretation Comments CO2 (test code = CO2) 25 24-32 [place] 204890-06-10 05:41:00 Test Item Value Reference Range Interpretation Comments Calcium Lvl (test code = Calcium Lvl) 8.7 8.5-10.5 [place] 204890-06-10 05:41:00 Test Item Value Reference Range Interpretation Comments Total Protein (test code = Total 7.0 6.4-8.4 Protein) [place] 204890-06-10 05:41:00 Test Item Value Reference Range Interpretation Comments Albumin Lvl (test code = Albumin Lvl) 3.6 3.5-5.0 [place] 204890-06-10 05:41:00 Test Item Value Reference Range Interpretation Comments ALT (test code = ALT) 19 See_Comment [Auto mated message] The system which nerated this result transmit miryam reference range : <=65. The reference range was not used to interpr et this result as jose l/abnormal. [place] 204890-06-10 05:41:00 Test Item Value Reference Range Interpretation Comments AST (test code = AST) 29 See_Comment [Auto mated message] The system which ge nerated this result transmit miryam reference range : <=37. The reference range was not used to interpr et this result as jose l/abnormal. [place] 204890-06-10 05:41:00 Test Item Value Reference Range Interpretation Comments Alk Phos (test code = Alk Phos) 69 39-136 [facility]2020-06-10 05:41:00 Test Item Value Reference Range Interpretation Comments Bili Total (test code = Bili Total) 0.7 0.2-1.3 [facility]2020-06-10 05:41:00 Test Item Value Reference Range Interpretation Comments AGAP (test code = AGAP) 11.4 10.0-20.0 [facility]2020-06-10 05:41:00 Test Item Value Reference Range Interpretation Comments B/C Ratio (test code = B/C Ratio) 14 1 6-25 [facility]2020-06-10 05:41:00 Test Item Value Reference Range Interpretation Comments Globulin (test code = Globulin) 3.4 2.7-4.2 [facility]2020-06-10 05:41:00 Test Item Value Reference Range Interpretation Comments A/G Ratio (test code = A/G Ratio) 1.1 1 0.7-1.6 [facility]2020-06-10 05:41:00 Test Item Value Reference Range Interpretation Comments eGFR (test code = eGFR) 69 [facility] [id number] 05:41:00 Test Item Value Reference Range Interpretation Comments WBC (test code = WBC) 9.3 3.7-10.4 [facility] TemplePrlxltmEENVJPCGGF1335-77-88 05:41:00 Test Item Value Reference Range Interpretation Comments RBC (test code = RBC) 3.87 4.20-5.40 [place] 881660-06-10 05:41:00 Test Item Value Reference Range Interpretation Comments Hgb (test code = Hgb) 12.7 12.0-16.0 [place] 881660-06-10 05:41:00 Test Item Value Reference Range Interpretation Comments Hct (test code = Hct) 36.6 36.0-48.0 [place] 130[address]-06-10 05:41:00 Test Item Value Reference Range Interpretation Comments MCV (test code = MCV) 94.6 80.0-98.0 [place] 130[address]-06-10 05:41:00 Test Item Value Reference Range Interpretation Comments MCH (test code = MCH) 32.9 pg 27.0-31.0 [place] 881660-06-10 05:41:00 Test Item Value Reference Range Interpretation Comments MCHC (test code = MCHC) 34.8 32.0-36.0 [facility] TempleXnbrhhtEVVWOLQJZH5865-07-26 05:41:00 Test Item Value Reference Range Interpretation Comments RDW (test code = RDW) 12.9 11.5-14.5 [facility] TempleXcplpcpBLNJAYHAGB7300-09-00 05:41:00 Test Item Value Reference Range Interpretation Comments Platelet (test code = Platelet) 185 133-450 [facility] TempleNsegizqGIACUATTUK5081-16-02 05:41:00 Test Item Value Reference Range Interpretation Comments MPV (test code = MPV) 8.3 7.4-10.4 [place] 881660-06-10 05:41:00 Test Item Value Reference Range Interpretation Comments PT (test code = PT) 14.0 s 12.0-14.7 [facility] TempleRxclgapGYWWFDOEOT6522-96-43 05:41:00 Test Item Value Reference Range Interpretation Comments INR (test code = INR) 1.08 1 0.85-1.17 [facility] TempleWlvfrqhGCIHMCMAMM7050-60-31 05:41:00 Test Item Value Reference Range Interpretation Comments Segs (test code = Segs) 75.3 45.0-75.0 [facility] TempleCoophofSEXYGHJDQK3534-15-28 05:41:00 Test Item Value Reference Range Interpretation Comments Lymphocytes (test code = Lymphocytes) 16.6 20.0-40.0 [facility] TempleEwshiadEHBZXFFGLN7376-05-58 05:41:00 Test Item Value Reference Range Interpretation Comments Monocytes (test code = Monocytes) 6.7 2.0-12.0 [place] 881660-06-10 05:41:00 Test Item Value Reference Range Interpretation Comments Eosinophils (test code = 1.1 See_Comment [A utomated message] The Eosinophils) system which ge nerated this result tra nsmitted reference range : <=4.0. The reference r thierry was not used to int erpret this result as normal/abnormal . [facility] TempleLivgbiaYYCPBQBMXJ6552-38-71 05:41:00 Test Item Value Reference Range Interpretation Comments Basophils (test code = 0.3 See_Comment [Aut omated message] The Basophils) system which ge nerated this result tra nsmitted reference range : <=1.0. The reference r thierry was not used to int erpret this result as normal/abnormal . [facility] HospitalJhohxstDIMRWMCYUB1536-66-12 05:41:00 Test Item Value Reference Range Interpretation Comments Neutrophils # (test code = Neutrophils 7.0 1.5-8.1 #) [facility]CmhllvhNUTAQGUZIB3635-30-64 05:41:00 Test Item Value Reference Range Interpretation Comments Lymphocytes # (test code = Lymphocytes 1.5 1.0-5.5 #) [facility] HospitalVsuqxvpNSWSTNHXTR7541-37-97 05:41:00 Test Item Value Reference Range Interpretation Comments Monocytes # (test code 0.6 See_Comment [Aut omated message] The = Monocytes #) system which generated this result tra nsmitted reference range : <=0.8. The reference r thierry was not used to int erpret this result as normal/abnormal . [facility] TempleZzvforzZSFPHFAZNG6939-76-52 05:41:00 Test Item Value Reference Range Interpretation Comments Eosinophils # (test code 0.1 See_Comment [A utomated message] The = Eosinophils #) system whic h generated this result tra nsmitted reference range : <=0.5. The reference r thierry was not used to int erpret this result as normal/abnormal . [facility] HospitalGlocalReach [id number] 05:41:00 Test Item Value Reference Range Interpretation Comments BNP (test code = BNP) 50 [facility] HospitalGlocalReach [id number] 05:41:00 Test Item Value Reference Range Interpretation Comments Total CK (test code = Total CK) 106 12-191 [facility] HospitalOvonyx2020-06-10 05:41:00 Test Item Value Reference Range Interpretation Comments Troponin-I (test code = Troponin-I) no gt <=0.40 [facility] [employer] [id number] 05:41:00 Test Item Value Reference Range Interpretation Comments Glucose Lvl (test code = Glucose Lvl) 142 70-99 [facility] [id number] 05:41:00 Test Item Value Reference Range Interpretation Comments BUN (test code = BUN) 12 7-22 [facility] [employer] [id number] 05:41:00 Test Item Value Reference Range Interpretation Comments Creatinine Lvl (test code = Creatinine 0.88 0.50-1.40 Lvl) [facility]2020-06-10 05:41:00 Test Item Value Reference Range Interpretation Comments Sodium Lvl (test code = Sodium Lvl) 138 135-145 [facility]2020-06-10 05:41:00 Test Item Value Reference Range Interpretation Comments Potassium Lvl (test code = Potassium 4.4 3.5-5.1 Lvl) [facility]2020-06-10 05:41:00 Test Item Value Reference Range Interpretation Comments Chloride Lvl (test code = Chloride Lvl) 106 95-109 [facility]2020-06-10 05:41:00 Test Item Value Reference Range Interpretation Comments CO2 (test code = CO2) 25 24-32 [place] 204890-06-10 05:41:00 Test Item Value Reference Range Interpretation Comments Calcium Lvl (test code = Calcium Lvl) 8.7 8.5-10.5 [place] 204890-06-10 05:41:00 Test Item Value Reference Range Interpretation Comments Total Protein (test code = Total 7.0 6.4-8.4 Protein) [facility]2020-06-10 05:41:00 Test Item Value Reference Range Interpretation Comments Albumin Lvl (test code = Albumin Lvl) 3.6 3.5-5.0 [facility]2020-06-10 05:41:00 Test Item Value Reference Range Interpretation Comments ALT (test code = ALT) 19 <=65 [facility]2020-06-10 05:41:00 Test Item Value Reference Range Interpretation Comments AST (test code = AST) 29 <=37 [facility]2020-06-10 05:41:00 Test Item Value Reference Range Interpretation Comments Alk Phos (test code = Alk Phos) 69 39-136 [facility]2020-06-10 05:41:00 Test Item Value Reference Range Interpretation Comments Bili Total (test code = Bili Total) 0.7 0.2-1.3 [place] 204890-06-10 05:41:00 Test Item Value Reference Range Interpretation Comments AGAP (test code = AGAP) 11.4 10.0-20.0 [facility]2020-06-10 05:41:00 Test Item Value Reference Range Interpretation Comments B/C Ratio (test code = B/C Ratio) 14 1 6-25 [facility]2020-06-10 05:41:00 Test Item Value Reference Range Interpretation Comments Globulin (test code = Globulin) 3.4 2.7-4.2 [facility]2020-06-10 05:41:00 Test Item Value Reference Range Interpretation Comments A/G Ratio (test code = A/G Ratio) 1.1 1 0.7-1.6 [facility]2020-06-10 05:41:00 Test Item Value Reference Range Interpretation Comments eGFR (test code = eGFR) 69 [facility] TempleRcrrrvzVGKDHXIZCT7594-67-35 05:41:00 Test Item Value Reference Range Interpretation Comments WBC (test code = WBC) 9.3 3.7-10.4 [place] 881660-06-10 05:41:00 Test Item Value Reference Range Interpretation Comments RBC (test code = RBC) 3.87 4.20-5.40 [place] 881660-06-10 05:41:00 Test Item Value Reference Range Interpretation Comments Hgb (test code = Hgb) 12.7 12.0-16.0 [facility] TempleTfacmhoFQUHCRCSYR4583-02-67 05:41:00 Test Item Value Reference Range Interpretation Comments Hct (test code = Hct) 36.6 36.0-48.0 [place] 881660-06-10 05:41:00 Test Item Value Reference Range Interpretation Comments MCV (test code = MCV) 94.6 80.0-98.0 [place] 881660-06-10 05:41:00 Test Item Value Reference Range Interpretation Comments MCH (test code = MCH) 32.9 pg 27.0-31.0 [facility] TempleSrsnypkKYAIWSNJZO4063-71-68 05:41:00 Test Item Value Reference Range Interpretation Comments MCHC (test code = MCHC) 34.8 32.0-36.0 [facility] TempleSvcyaycDICTPBAXAV1346-64-97 05:41:00 Test Item Value Reference Range Interpretation Comments RDW (test code = RDW) 12.9 11.5-14.5 [facility] TempleWuqqafiZXUECBOHBI4489-51-71 05:41:00 Test Item Value Reference Range Interpretation Comments Platelet (test code = Platelet) 185 133-450 [facility] TempleBrifiqhIZIXGCJPHS2688-62-76 05:41:00 Test Item Value Reference Range Interpretation Comments MPV (test code = MPV) 8.3 7.4-10.4 [facility] TempleSvckvrlGJKTXOOCEA2479-81-33 05:41:00 Test Item Value Reference Range Interpretation Comments PT (test code = PT) 14.0 s 12.0-14.7 [facility] TempleVslzfbrLSTPBFBFFO7692-32-55 05:41:00 Test Item Value Reference Range Interpretation Comments INR (test code = INR) 1.08 1 0.85-1.17 [facility] TempleZsfqdwnHCYTLYJKPM1057-23-74 05:41:00 Test Item Value Reference Range Interpretation Comments Segs (test code = Segs) 75.3 45.0-75.0 [facility] TempleAirxlrrLABEXWDRPU6533-70-82 05:41:00 Test Item Value Reference Range Interpretation Comments Lymphocytes (test code = Lymphocytes) 16.6 20.0-40.0 [facility] TempleHcnawpwQARJXHLUWY3916-72-92 05:41:00 Test Item Value Reference Range Interpretation Comments Monocytes (test code = Monocytes) 6.7 2.0-12.0 [facility] TempleEbwmyvoRHRGITQCBG0223-24-14 05:41:00 Test Item Value Reference Range Interpretation Comments Eosinophils (test code = Eosinophils) 1.1 <=4.0 [place] 881660-06-10 05:41:00 Test Item Value Reference Range Interpretation Comments Basophils (test code = Basophils) 0.3 <=1.0 [facility] TempleVykkdgiHZSMKIHYAX0334-60-93 05:41:00 Test Item Value Reference Range Interpretation Comments Neutrophils # (test code = Neutrophils 7.0 1.5-8.1 #) [facility] TempleMltozucWYGYLGENOV3167-43-60 05:41:00 Test Item Value Reference Range Interpretation Comments Lymphocytes # (test code = Lymphocytes 1.5 1.0-5.5 #) [facility] TempleQgxbjgmAQRQUSYXZW1155-00-69 05:41:00 Test Item Value Reference Range Interpretation Comments Monocytes # (test code = Monocytes #) 0.6 <=0.8 [place] 881660-06-10 05:41:00 Test Item Value Reference Range Interpretation Comments Eosinophils # (test code = Eosinophils 0.1 <=0.5 #) [facility]
[2023-06-20] MEDS ORDERED: HYDROCODONE/APAP 7.5/325 MG TAB ONE (11:12)
--- NOTE | 2023-06-20 11:30 | RAD REPORT ---
EXAM DESCRIPTION: RAD - Wrist Right 3 View - 06/20/2023 11:18 am CLINICAL HISTORY: SWELLING Pain COMPARISON: No comparisons FINDINGS: Mild radiocarpal joint arthritic changes. Lucency is seen in a radial styloid compatible with a fracture. No dislocation. IMPRESSION: Radial styloid fracture is seen extending to the articular surface of the radius.
--- NOTE | 2023-06-20 11:32 | RAD REPORT ---
EXAM DESCRIPTION: RAD - Hand Right 3 View - 06/20/2023 11:18 am CLINICAL HISTORY: SWELLING COMPARISON: No comparisons FINDINGS: Prominent diffuse osteopenia. Advanced PIP and DIP joint arthritic changes are present. Sm all erosive component is likely present as well. Lucency is seen in the radial styloid compatible wit h fracture. IMPRESSION: Significant multi joint arthritic changes in the hand. Nondisplaced radial styloid fracture in the wrist.
--- NOTE | 2023-06-20 12:26 | ER ---
Nurse's Notes [facility] Name: Barbra Moore Age: 68 yrs Sex: Female : 1955 Arrival Date: 06/20/2023 Time: 10:19 Bed 14 Private MD: Diagnosis: Right radial styloid fracture Presentation: 06/20 10:57 Acuity: FELECIA 4 iw 11:17 Chief complaint: Patient states: tripped and fell over her dog, fell on right wrist. iw Coronavirus screen: At this time, the client does not indicate any symptoms associated with coronavirus-19. Ebola Screen: Patient negative for fever greater than or equal to 101.5 degrees Fahrenheit, and additional compatible Ebola Virus Disease symptoms Patient denies exposure to infectious person. Patient denies travel to an Ebola-affected area in the 21 days before illness onset. No symptoms or risks identified at this time. Initial Sepsis Screen: Does the patient meet any 2 criteria? No. Patient's initial sepsis screen is negative. Does the patient have a suspected source of infection? No. Patient's initial sepsis screen is negative. Risk Assessment: Do you want to hurt yourself or someone else? Patient reports no desire to harm self or others. Onset of symptoms was June 20, 2023. 11:17 Method Of Arrival: Ambulatory iw Triage Assessment: 12:00 General: Appears in no apparent distress. Injury Description: Bruise. iw Historical: - Allergies: 10:57 NKA; iw - PMHx: 10:57 Arthritis; iw - Immunization history:: Adult Immunizations unknown. - Social history:: Smoking status: unknown. Screenin:01 [facility] ED Fall Risk Assessment (Adult) Score/Fall Risk Level 0 - 2 = Low Risk nj1 Oriented to surroundings, Maintained a safe environment, Hourly rounding (assess needs \T\ fall precautionary measures) done. Abuse screen: Denies threats or abuse. Denies injuries from another. Nutritional screening: No deficits noted. Tuberculosis screening: No symptoms or risk factors identified. Assessment: 12:01 General: Appears in no apparent distress. comfortable, Behavior is calm, cooperative, nj1 appropriate for age. Pain: Complains of pain in right wrist. 12:01 Neuro: Level of Consciousness is awake, alert, obeys commands, Oriented to person, nj1 place, time, situation. Cardiovascular: Patient's skin is warm and dry. Respiratory: Airway is patent Respiratory effort is even, unlabored. Musculoskeletal: Reports pain in right wrist. 13:20 Reassessment: Patient is alert, oriented x 3, equal unlabored respirations, skin aa5 warm/dry/pink. Vital Signs: 10:58 Weight 68.04 kg; iw 12:01 BP 122 / 68; Pulse 67; Resp 18; Pulse Ox 99% ; Pain 7/10; nj1 12:01 Pain 7/10; nj1 12:01 Pain Scale: Adult nj1 12:01 Pain Scale: Adult nj1 ED Course: 10:23 Patient arrived in ED. mg5 10:25 [facility] 7 10:25 Jamal Choen MD is Attending Physician. jh7 10:57 Xiomara Madsen, RN is Primary Nurse. iw 10:57 Triage completed. iw 11:20 XRAY Hand RIGHT 3 View In Process Unspecified. EDMS 11:20 XRAY Wrist RIGHT 3 view In Process Unspecified. EDMS 12:01 Arm band placed on. nj1 12:01 Patient has correct armband on for positive identification. Bed in low position. Call nj1 light in reach. Provided Education on: call light, fall precautions. 12:25 Cas Mccormick MD is Referral Physician. [facility] 13:20 No provider procedures requiring assistance completed. Patient did not have IV access aa5 during this emergency room visit. Administered Medications: 11:17 Drug: Hydrocodone-Acetaminophen PO (7.5 mg-325 mg) 1 tabs PO once Route: PO; iw 12:01 Follow up: Pain 7/10 Adult; Response: No adverse reaction; Pain is decreased nj1 13:20 Drug: traMADol PO 50 mg PO once Route: PO; aa5 Medication: 13:20 VIS not applicable for this client. aa5 Outcome: 12:26 Discharge ordered by . 7 13:20 Discharged to home ambulatory, aa5 13:20 Condition: stable 13:20 Discharge instructions given to patient, Instructed on discharge instructions, follow up and referral plans. Demonstrated understanding of instructions, follow-up care, 13:42 Patient left the ED. rs5 Signatures: Dispatcher [employer] EDXiomara Pitt RN RN iw Susie Waters RN RN aa5 Rand Drake CONCRETING SUPERVISOR CONCRETING SUPERVISOR jh7 Brayan Greene, RN RN rs5 Nadine Monet, RN RN nj1 Aysha Hernadez mg5
--- NOTE | 2023-06-20 12:27 | EDPHYS ---
Physician Documentation [facility] Name: Barbra Moore Age: 68 yrs Sex: Female : 1955 Arrival Date: 06/20/2023 Time: 10:19 Bed 14 Private MD: ED Physician Jamal Cohen HPI: 06/20 11:17 This 68 yrs old Female presents to ER via Ambulatory with complaints of Hand Injury. jh7 11:17 The patient or guardian reports decreased range of motion, injury, pain, swelling, jh7 tenderness. The complaints affect the right hand diffusely. 68-year-old female was walking her dog, when the dog suddenly pulled the leash causing the patient to fall. She currently complains of right wrist pain with swelling to her hand. No significant PMH or allergies.. Historical: - Allergies: 10:57 NKA; iw - PMHx: :57 Arthritis; iw - Immunization history:: Adult Immunizations unknown. - Social history:: Smoking status: unknown. ROS: 11:17 Constitutional: Negative for fever, chills, and weight loss, Eyes: Negative for injury, jh7 pain, redness, and discharge, Neck: Negative for injury, pain, and swelling, Cardiovascular: Negative for chest pain, palpitations, and edema, Respiratory: Negative for shortness of breath, cough, wheezing, and pleuritic chest pain, Back: Negative for injury and pain, Skin: Negative for injury, rash, and discoloration, Neuro: Negative for headache, weakness, numbness, tingling, and seizure, 11:17 MS/extremity: Positive for injury or acute deformity, decreased range of motion, swelling, tenderness, of the Right radial aspect of the wrist, 11:17 All other systems are negative, Exam: 11:17 Constitutional: This is a well developed, well nourished patient who is awake, alert, jh7 and in no acute distress. Neck: Trachea midline, no thyromegaly or masses palpated, and no cervical lymphadenopathy. Supple, full range of motion without nuchal rigidity, or vertebral point tenderness. No Meningismus. Cardiovascular: Regular rate and rhythm with a normal S1 and S2. No gallops, murmurs, or rubs. Normal PMI, no JVD. No pulse deficits. Respiratory: Lungs have equal breath sounds bilaterally, clear to auscultation and percussion. No rales, rhonchi or wheezes noted. No increased work of breathing, no retractions or nasal flaring. Back: No spinal tenderness. No costovertebral tenderness. Full range of motion. Skin: Warm, dry with normal turgor. Normal color with no rashes, no lesions, and no evidence of cellulitis. Neuro: Awake and alert, GCS 15, oriented to person, place, time, and situation. Motor strength 5/5 in all extremities. Sensory grossly intact. Normal gait. 11:17 Musculoskeletal/extremity: ROM: limited active range of motion due to pain, in the R wrist, Pulses: are normal with no appreciated deficits, Sensation intact. Diffuse swelling of the right hand. Vital Signs: 10:58 Weight 68.04 kg; iw 12:01 BP 122 / 68; Pulse 67; Resp 18; Pulse Ox 99% ; Pain 7/10; nj1 12:01 Pain 7/10; nj1 12:01 Pain Scale: Adult nj1 12:01 Pain Scale: Adult nj1 MDM: 10:25 Patient medically screened. [facility] 12:28 Differential diagnosis: dislocation, closed fracture, contusion, tendonitis. Data [facility] reviewed: vital signs, nurses notes, radiologic studies, plain films. I considered the following discharge prescriptions or medication management in the emergency department Medications were administered in the Emergency Department. See MAR. Counseling: I had a detailed discussion with the patient and/or guardian regarding the historical points, exam findings, and any diagnostic results supporting the discharge/admit diagnosis, the need for outpatient follow up, a orthopedic surgeon, to return to the emergency department if symptoms worsen or persist or if there are any questions or concerns that arise at home. 06/20 10:30 Order name: XRAY Hand RIGHT 3 View; Complete Time: 11:33 [facility] 06/20 10:31 Order name: XRAY Wrist RIGHT 3 view; Complete Time: 11:33 [facility] 06/20 11:33 Order name: Sugar Tong Forearm Splint; Complete Time: 12:08 7 06/20 11:33 Order name: Sling; Complete Time: 13:20 [facility] Administered Medications: 11:17 Drug: Hydrocodone-Acetaminophen PO (7.5 mg-325 mg) 1 tabs PO once Route: PO; iw 12:01 Follow up: Pain 7/10 Adult; Response: No adverse reaction; Pain is decreased nj1 13:20 Drug: traMADol PO 50 mg PO once Route: PO; aa5 Disposition Summary: 06/20/23 12:26 Discharge Ordered Notes: Location: Home [facility] Problem: new [facility] Symptoms: are unchanged [facility] Condition: Stable [facility] Diagnosis - Right radial styloid fracture [facility] Followup: [facility] - With: Cas Mccormick MD - When: 2 - 3 days - Reason: Recheck today's complaints Discharge Instructions: - Discharge Summary Sheet [facility] - Cast or Splint Care, Adult [facility] - Wrist Fracture Treated With Immobilization [facility] Forms: - Medication Reconciliation Form [facility] - Thank You Letter [facility] - Patient Portal Instructions [facility] - Leadership Thank You Letter [facility] Addendum: 06/25/2023 07:47 I was immediately available for consultation during this patient's visit. I did not e c2 personally see the patient or guide the patient's care.. Signatures: Dispatcher [employer] Xiomara Kendall RN RN Susie Waters RN RN aa5 Rand Drake, IN FILE OPERATOR [place] [id number] Nadine Monet RN RN nj1 Jamal Cohen MD MD ec2
[2023-06-20] MEDS ORDERED: TRAMADOL HCL 50 MG TAB ONE (13:21)
[2023-06-20 13:50] VITALS: BP 122/68; O2SAT 99
== END 2023-06-20 13:42 | disposition home or self-care (01) ==
LOC: ER 10:19
PROC: 2W3CX1Z Immobilization of Right Lower Arm using Splint (ICD-10-PCS; principal; 2023-06-20)
DX: S52.511A Displaced fracture of right radial styloid process, initial encounter for closed fracture (principal)
CPT/HCPCS: 99283